=== PATIENT | male | born 1935 | race Hispanic/Latino ===

== ENCOUNTER 2017-06-02 01:51 | Emergency (ER) | payer MEDICARE ==
[~2017-06-02] VITALS: Ht 172.7 cm; Wt 79.4 kg
[~2017-06-02 01:51] MED LIST: AMLODIPINE BESY10 MG PO; CARVEDILOL25 MG PO; CLONIDINE HCL0.1 MG PO; DOXAZOSIN MESYLA4 MG PO; GABAPENTIN300 MG PO; LISINOPRIL40 MG PO; [UNRECOGNIZED DRUG - OTHER] PO
[2017-06-02] MEDS ORDERED: METOPROLOL TARTRATE INJ 1 MG/ML VIAL IV ONE (02:30)
[2017-06-02] MEDS ORDERED: ASPIRIN 325 MG TAB PO ONE (02:30)
[2017-06-02] MEDS ORDERED: FAMOTIDINE 20 MG/2 ML VIAL IV STA (03:54)
[2017-06-02] MEDS ORDERED: PANTOPRAZOLE 40 MG 10ML VIAL IV ONE (04:00)
[2017-06-02] MEDS ORDERED: CLOPIDOGREL75 MG PO (06:39)
[2017-06-02] MEDS ORDERED: ASPIR 8181 MG PO (06:41)
[2017-06-02] MEDS ORDERED: PANTOPRAZOLE SO40 MG PO (06:41)
[2017-06-02 07:43] VITALS: BP 174/89
== END 2017-06-02 07:37 | disposition home or self-care (01) ==
LOC: FSED 01:51
DX: R07.89 Other chest pain (principal); I20.9 Angina pectoris, unspecified; K21.9 Gastro-esophageal reflux disease without esophagitis; I10 Essential (primary) hypertension; I50.9 Heart failure, unspecified; E78.5 Hyperlipidemia, unspecified; L40.9 Psoriasis, unspecified
CPT/HCPCS: 93005; 99283

== ENCOUNTER → 2017-06-18 | Day surgery (SDC) | payer MEDICARE ==
[2017-06-17 10:21] LABS: BASOPHILS # (AUTO) 0.1 (0.0-0.1); BASOPHILS % 0.8 % (0.0-1.0); EOSINOPHILS # (AUTO) 0.2 (0.0-0.4); EOSINOPHILS % 3.4 % (0.0-6.0); HEMATOCRIT 37.7 % (38.2-49.6); HEMOGLOBIN 12.9 g/dL (14.0-18.0); LYMPHOCYTES # (AUTO) 1.1 (1.0-3.2); LYMPHOCYTES % 16.6 % (18.0-39.1); MEAN CORPUSCULAR HEMOGLOBIN 31.2 pg (28-32); MEAN CORPUSCULAR HGB CONC 34.2 g/dL (31-35); MEAN CORPUSCULAR VOLUME 91.3 fL (81-99); MONOCYTES # (AUTO) 0.7 (0.2-0.8); MONOCYTES % 10.3 % (4.4-11.3); NEUTROPHILS # (AUTO) 4.5 (2.1-6.9); NEUTROPHILS % 68.4 % (38.7-80.0); PLATELET COUNT 171 x10e3/uL (140-360); RED BLOOD COUNT 4.13 x10e6/uL (4.3-5.7); RED CELL DISTRIBUTION WIDTH 13.9 % (11.7-14.4)
[2017-06-17 10:32] LABS: INR 1.2; PROTHROMBIN TIME 14.3 seconds (11.9-14.5)
[2017-06-17 10:55] LABS: ANION GAP 11.9 mmol/L (8-16); BLOOD UREA NITROGEN 11 mg/dL (7-26); BUN/CREATININE RATIO 9 (6-25); CALCIUM 8.9 mg/dL (8.4-10.2); CARBON DIOXIDE 31 mmol/L (22-29); CHLORIDE 104 mmol/L (98-107); CREATININE, SERUM 1.16 mg/dL (0.72-1.25); EST GLOMERULAR FILTRATION RATE > 60 ML/MIN (60-); GLUCOSE 115 mg/dL (74-118); POTASSIUM 4.9 mmol/L (3.5-5.1); SODIUM 142 mmol/L (136-145)
[2017-06-17 11:50] LABS: ANISOCYTOSIS SLIGHT; BLAST CELLS % MANUAL 1; EOSINOPHILS % (MANUAL) 3 % (0-7); LYMPHOCYTES % (MANUAL) 12 % (19-48); MONOCYTES % (MANUAL) 9 % (3.4-9.0); NEUTROPHILS % (MANUAL) 72 % (40-74); PLATELET ESTIMATE ADEQUATE; PLATELET MORPHOLOGY COMMENT FEW LARGE; RBC MORPHOLOGY COMMENT NORMAL
--- NOTE | 2017-06-17 12:15 | Diagnostic Imaging Report ---
PROCEDURE: Frontal and lateral views of the chest. COMPARISON: Patients [facility], DX, CHEST SINGLE (NOT PORTABLE), 08/07/2016, 12:33. INDICATIONS: PRE OPERATIVE CHEST X-RAY FOR HEART CATH FINDINGS: Lines/tubes: None. Lungs: The lungs are well inflated and clear. There is no evidence of pneumonia or pulmonary edema. Pleura: There is no pleural effusion or pneumothorax. Heart and mediastinum: Stable mild enlargement of the cardiac silhouette. Pulmonary vasculature is normal. Atherosclerotic calcification of a tortuous aorta. Bones: No acute bony abnormality. IMPRESSION: 1. No acute cardiopulmonary abnormalities. Alexandro Fu M.D. Dictated by: Alexandro Fu M.D. on 06/17/2017 at 12:14 Electronically approved by: Alexandro Fu M.D. on 06/17/2017 at 12:14
[~2017-06-18] VITALS: Ht 172.7 cm; Wt 79.4 kg
[~2017-06-18] MED LIST changes: +ASPIR 8181 MG PO; +ASPIRIN EC81 MG PO; +ATORVASTATIN CA10 MG PO; +CLOPIDOGREL75 MG PO; +FENTANYL CITRATE/PF 100MCG/2 ML INJ IV PRN; +FENTANYL CITRATE/PF 100MCG/2 ML INJ PRN; +GABAPENTIN400 MG PO; +HEPARIN SOD/SOD CHLORIDE 2,000 ML PRN; +IOPAMIDOL 370 MG/ML 200 ML INFUS..BTL INJ PRN; +LIDOCAINE HCL 2% LOCAL 20 ML VIAL PRN; +MIDAZOLAM HCL 2 MG/2 ML VIAL IV PRN; +MIDAZOLAM HCL 2 MG/2 ML VIAL PRN; +PANTOPRAZOLE SO40 MG PO; +SODIUM CHLORIDE 0.9% 1000ML 1,000 ML PRN
--- OUTSIDE RECORDS SUMMARY | 2017-06-18 06:19 | XMS REPORT ---
[facility] Address Unknown Phone Unavailable Care Team Providers Care Special Events Manager Name Role Phone JOSE FLOYD Unavailable Unavailable Problems This patient has no known problems. Allergies, Adverse Reactions, Alerts This patient has no known allergies or adverse reactions. Medications This patient has no known medications. 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 COMPARISON: Patients [facility], , CHEST SINGLE (NOT PORTABLE), 08/07/2016, 12:33. INDICATIONS: PRE OPERATIVE CHEST X-RAY FOR HEART CATH FINDINGS: Lines/tubes: None. Lungs: The lungs are well inflated and clear. There is no evidence of pneumonia or pulmonary edema. Pleura: There is no pleural effusion or pneumothorax. Heart and mediastinum: Stable mild enlargement of the cardiac silhouette. Pulmonary vasculature is normal. Atherosclerotic calcification of a tortuous aorta. Bones: No acute bony abnormality. IMPRESSION: 1. No acute cardiopulmonary abnormalities. Benitez López M.D. Dictated by : Benitez López M.D. on 06/17/2017 at 12:14 Electronically approved by: Benitez López M.D. on 06/17/2017 at 12:14 Dictated By : BENITEZ LÓPEZ MD 1214 Transcribed By: JOSELIN on 06/17/17 1214 COPY TO: JOSE FLOYD MD
--- OUTSIDE RECORDS SUMMARY | 2017-06-18 06:19 | XMS REPORT | Continuity of Care Document ---
Author Author [facility] Organization [facility] Address [address] [place] [address] Phone Unavailable Care Team Providers Care Supervisor Graphite Name Role Phone KRISTA CLARK MD PCP Insurance Providers Guarantor Finesse Smith Address [address] [place] [address] Email NONE Payer [employer] Medicare Replacement Policy Number [id number] Subscriber's Name Finesse Smith Relationship 18 Self / Same As Patient Group Number [id number] Group Name RETIRED Effective Date 15 Advance Directives Directive Response Recorded Date/Time Does the patient have an advance directive? No 08/08/16 12:16am If yes, is advance directive on file with [facility]? No 08/08/16 12:16am If not on file with [facility] will patient provide a copy? No 08/08/16 12:16am Problems No problem information available. Medications Current Home Medications Medication Dose Units Route Directions Days Qty Instructions Start Date Amlodipine Besylate 10 Mg Tablet 10 Mg Oral Daily 30 Tab Aspirin (Aspir 81) 81 Mg Tablet. Oral Daily Carvedilol 25 Mg Tablet 25 Mg Oral Twice A Day Clonidine Hcl 0.1 Mg Tablet 1 Tab Oral Daily 60 Tab Clopidogrel Bisulfate (Clopidogrel) 75 Mg Tablet 75 Mg Oral Daily 30 Tab Doxazosin Mesylate 4 Mg Tablet 4 Mg Oral Daily Gabapentin 300 Mg Capsule 300 Mg Oral Twice A Day 60 Cap Lisinopril 40 Mg Tablet 40 Mg Oral Daily Ofezla 30 Mg Oral Twice A Day Pantoprazole Sodium (Protonix) 40 Mg Tablet.dr 40 Mg Oral Daily Social History Social History Problem Response Recorded Date/Time Onset Date Status Hx Psychiatric Problems No 08/08/2016 12:16am Not Applicable Not Applicable Smoking Status Start Date Stop Date Never Smoker Hospital Discharge Instructions No hospital discharge instruction information available. Plan of Care Discharge Date 06/02/17 7:37am Disposition HOME, SELF-CARE Condition at Discharge Stable Instructions/Education Provided Angina Chest Pain - Noncardiac Prescriptions See Medication Section Referrals KRISTA CLARK MD Address: [address] [place] [id number] Additional Instructions/Education Call PCP and Supervisor [employer] to schedule follow up today (in a couple hours). You may see whichever one first, whoever can get you into their office within the next 2-3 days, as discussed. Copies of your EKGs and labs were given to you. Follow up is very important! Return here with any return or worsening of symptoms (or closest ER). Functional Status No functional status information available. Allergies, Adverse Reactions, Alerts No known allergies. Immunizations No immunization information available. Vital Signs Acute Vital Signs Vital Response Date/Time Temperature (Fahrenheit) 97.8 degrees F (97.6 - 99.5) 06/02/2017 7:43am Pulse Pulse Rate (adult) 75 bpm (60 - 90) 06/02/2017 7:43am Respiratory Rate 16 bpm (12 - 24) 06/02/2017 7:43am Blood Pressure 174/89 mm Hg 06/02/2017 7:43am Height 5 ft 8 in 06/02/2017 2:00am Weight 175 lb 06/02/2017 2:00am Body Mass Index 26.6 kg/m^2 06/02/2017 2:00am Results Laboratory Results Test Name Result Units Flags Reference Collection Date/Time Result Date/ Time Comments White Blood Count 11.6 x10e3/uL H 4.5-10.6 08/08/2016 6:05am 08/08/2016 6:27am Red Blood Count 4.18 x10e6/uL L 4.3-5.7 08/08/2016 6:05am 08/08/2016 6: 27am Hemoglobin 12.3 g/dL 12.3-16.8 08/08/2016 6:05am 08/08/2016 6:27am SEE IV FLUIDS. 0626 on 08/08/16 by Jenelle Mccarty Hematocrit 37.0 % L 38.2-49.6 08/08/2016 6:05am 08/08/2016 6:27am Mean Corpuscular Volume 88.5 fL 81-99 08/08/2016 6:05am 08/08/2016 6: 27am Mean Corpuscular Hemoglobin 29.4 pg 28-32 08/08/2016 6:05am 08/08/2016 6:27am Mean Corpuscular Hemoglobin Concent 33.2 g/dL 31-35 08/08/2016 6:05am 08/08/2016 6:27am Red Cell Distribution Width 14.7 % H 11.7-14.4 08/08/2016 6:05am 2016 6:27am Platelet Count 184 x10e3/uL 140-360 08/08/2016 6:05am 08/08/2016 6: 27am SEE IV FLUIDS. 0626 on 08/08/16 by Jenelle Mccarty Neutrophils (%) (Auto) 76.9 % 38.7-80.0 08/08/2016 6:05am 08/08/2016 6: 27am Lymphocytes (%) (Auto) 10.5 % L 18.0-39.1 08/08/2016 6:05am 08/08/2016 6 :27am Monocytes (%) (Auto) 10.0 % 4.4-11.3 08/08/2016 6:05am 08/08/2016 6: 27am Eosinophils (%) (Auto) 2.0 % 0.0-6.0 08/08/2016 6:05am 08/08/2016 6: 27am Basophils (%) (Auto) 0.2 % 0.0-1.0 08/08/2016 6:05am 08/08/2016 6:27am IM GRANULOCYTES % 0.4 % 0.0-1.0 08/08/2016 6:05am 08/08/2016 6:27am Neutrophils # (Auto) 8.9 H 2.1-6.9 08/08/2016 6:05am 08/08/2016 6: 27am Lymphocytes # (Auto) 1.2 1.0-3.2 08/08/2016 6:05am 08/08/2016 6:27am Monocytes # (Auto) 1.2 H 0.2-0.8 08/08/2016 6:05am 08/08/2016 6:27am Eosinophils # (Auto) 0.2 0.0-0.4 08/08/2016 6:05am 08/08/2016 6:27am Basophils # (Auto) 0.0 0.0-0.1 08/08/2016 6:05am 08/08/2016 6:27am Absolute Immature Granulocyte (auto 0.05 x10e3/uL 0-0.1 08/08/2016 6: 05am 08/08/2016 6:27am Prothrombin Time 13.1 seconds 11.9-14.5 08/07/2016 12:20pm 08/07/2016 12:43pm Prothromb Time International Ratio 0.95 08/07/2016 12:20pm 2016 12:43pm Oral Anticoagulant Therapy INR Values: 1. Low Intensity Therapy 1.5 - 2.0 2. Moderate Intensity Therapy 2.0 - 3.0 3. High Intensity Therapy(1) 2.5 - 3.5 4. High Intensity Therapy(2) 3.0 - 4.0 5. Panic Value INR > 5.0 Activated Partial Thromboplast Time 33.0 seconds 23.8-35.5 08/07/2016 12 :20pm 08/07/2016 12:45pm Urine Color YELLOW YELLOW 08/07/2016 12:16pm 08/07/2016 2:59pm Urine Clarity SL CLOUDY H CLEAR 08/07/2016 12:16pm 08/07/2016 2:59pm Urine Specific [place] 1.025 1.010-1.025 08/07/2016 12:16pm 2016 2:59pm Urine pH 5 5 - 7 08/07/2016 12:16pm 08/07/2016 2:59pm Urine Leukocyte Esterase NEGATIVE NEGATIVE 08/07/2016 12:16pm 2016 2:59pm Urine Nitrite NEGATIVE NEGATIVE 08/07/2016 12:16pm 08/07/2016 2:59pm Urine Protein 3+ H NEGATIVE 08/07/2016 12:16pm 08/07/2016 2:59pm Urine Glucose (UA) NEGATIVE NEGATIVE 08/07/2016 12:16pm 08/07/2016 2: 59pm Urine Ketones NEGATIVE NEGATIVE 08/07/2016 12:16pm 08/07/2016 2:59pm Urine Urobilinogen 0.2 mg/dL 0.2 - 1 08/07/2016 12:16pm 08/07/2016 2: 59pm Urine Bilirubin NEGATIVE NEGATIVE 08/07/2016 12:16pm 08/07/2016 2: 59pm Urine Blood 1+ H NEGATIVE 08/07/2016 12:16pm 08/07/2016 2:59pm Urine WBC 0-5 /HPF 0-5 08/07/2016 12:16pm 08/07/2016 3:05pm Urine RBC 0-5 /HPF 0-5 08/07/2016 12:16pm 08/07/2016 3:05pm Urine Bacteria FEW /HPF NONE 08/07/2016 12:16pm 08/07/2016 3:05pm Urine Epithelial Cells RARE /LPF NONE 08/07/2016 12:16pm 08/07/2016 3: 05pm Urine Hyaline Casts 0-1 0-1 08/07/2016 12:16pm 08/07/2016 3:05pm Urine Mucus RARE RARE 08/07/2016 12:16pm 08/07/2016 3:05pm Sodium Level 139 mmol/L 136-145 08/08/2016 6:05am 08/08/2016 6:44am Potassium Level 4.6 mmol/L 3.5-5.1 08/08/2016 6:05am 08/08/2016 6:44am Chloride Level 103 mmol/L 98-107 08/08/2016 6:05am 08/08/2016 6:44am Carbon Dioxide Level 25 mmol/L 22-29 08/08/2016 6:05am 08/08/2016 6: 44am Anion Gap 15.6 mmol/L 8-16 08/08/2016 6:05am 08/08/2016 6:44am Blood Urea Nitrogen 24 mg/dL # 7-26 08/08/2016 6:05am 08/08/2016 6:44am Creatinine 1.59 mg/dL H 0.72-1.25 08/08/2016 6:05am 08/08/2016 6:44am BUN/Creatinine Ratio 15 6-25 08/08/2016 6:0508/08/2016 6:44am Estimat Glomerular Filtration Rate 42 ML/MIN L 60- 08/08/2016 6:05 6:44am Ranges were taken from the National Kidney Disease Education Program and the National Kidney Foundation literature. Reference ranges: 60 or greater: Normal 16-59 (for 3 consecutive months): Chronic kidney disease 15 or less: Kidney failure Glucose Level 107 mg/dL 74-118 08/08/2016 6:05am 08/08/2016 6:44am Calcium Level 8.5 mg/dL 8.4-10.2 08/08/2016 6:0508/08/2016 6:44am Total Bilirubin 1.0 mg/dL 0.2-1.2 08/07/2016 12:20pm 08/07/2016 1:51pm Samples from patients who have taken Naproxen have shown spurious elevation in Total Bilirubin levels. Aspartate Amino Transf (AST/SGOT) 22 IU/L 5-34 08/07/2016 12:20pm 08/07 1:51pm Alanine Aminotransferase (ALT/SGPT) 22 IU/L 0-55 08/07/2016 12:20pm 03/2017 1:51pm Total Protein 8.9 g/dL H 6.5-8.1 08/07/2016 12:20pm 08/07/2016 1:51pm Albumin 4.2 g/dL 3.5-5.0 08/07/2016 12:20pm 08/07/2016 1:51pm Globulin 4.7 g/dL H 2.3-3.5 08/07/2016 12:20pm 08/07/2016 1:51pm Albumin/Globulin Ratio 0.9 0.8-2.0 08/07/2016 12:20pm 08/07/2016 1: 51pm Alkaline Phosphatase 92 IU/L 40-150 08/07/2016 12:pm 08/07/2016 1: 51pm B-Type Natriuretic Peptide 118.0 pg/mL H 0-100 08/07/2016 12:20pm 2016 1:56pm Creatine Kinase 75 IU/L 30-200 08/07/2016 12:20pm 08/07/2016 1:51pm Creatine Kinase MB 2.30 ng/mL 0-4.3 08/07/2016 12:20pm 08/07/2016 2: 15pm Troponin I < 0.05 ng/mL 0.0-0.40 08/07/2016 12:20pm 08/07/2016 2:15pm Lipase 31 U/L 8-78 08/07/2016 12:20pm 08/07/2016 1:51pm Procedures Procedure Status Date Provider(s) X-ray of chest, single view Active 08/07/16 ROSY OSUNA NP Computed tomography of abdomen and pelvis with contrast Active 08/07/16 OLMAN HESS MD Encounters Encounter Location Arrival/Admit Date Discharge/Depart Date Attending Provider Departed Emergency Room [facility] 06/02/17 1:51am 7:37am MONAE CANO MD Departed Emergency Room [facility] 11/22/16 9:57pm 12:52am ANNE STODDARD MD Discharged Inpatient (obs) [facility] 08/07/16 8:32pm 1:06pm KRISTA CLARK MD
[2017-06-18 07:00] VITALS: BP 162/74
--- NOTE | 2017-06-18 12:34 | Operative Report ---
DATE OF PROCEDURE: June 18, 2017 INDICATIONS: Chest pain. Abnormal stress test. ANESTHESIA: 2% lidocaine for local anesthesia and fentanyl and Versed for conscious sedation. BLOOD LOSS: 2 mL. DESCRIPTION OF PROCEDURE: After informed consent, the patient was brought to the cardiac catheterization laboratory and placed on the table. Both groins were painted and draped in a sterile fashion. Lidocaine was injected in the right groin for local anesthesia. Right femoral artery was accessed by Seldinger technique, and a 5[place] sheath was placed in the right femoral artery. Left main artery was cannulated using a JL4 5-[place] catheter. Coronary angiogram was performed, and images were obtained in multiple views. The right coronary artery was cannulated using a 4-[place] 3DRC catheter. Coronary angiogram was performed, and images were obtained in multiple views. LV-gram was performed using a pigtail catheter. Patient tolerated the procedure without any complications. REPORT LEFT MAIN: Normal caliber. There are luminal irregularities. LEFT ANTERIOR DESCENDING: Normal caliber but tapers off distally with 99% mid lesion followed by diffuse, long, 90% lesion in the distal segment. The 2nd diagonal branch is a large branch, which branches off. It is of moderate caliber. There is a 70% lesion. In the branch there is another 70% lesion. There are some collaterals from the right side supplying the distal LAD. LEFT CIRCUMFLEX: Normal caliber and has about a 50% mid lesion. The 1st obtuse marginal branch has about 30% mid lesion. RIGHT CORONARY ARTERY: This is a large caliber, dominant vessel. There are diffuse luminal irregularities. LV-GRAM: Hypercontracted left ventricle with overall ejection fraction of 70% to 75%. HEMODYNAMICS: Aortic pressure is 165/81. LV pressure 165/1. LVEDP is 27. PLAN: Possible CABG. Job#: [id number]
== END | disposition home or self-care (01) ==
LOC: CATH LAB 06:17
DX: I25.10 Atherosclerotic heart disease of native coronary artery without angina pectoris (principal); R94.39 Abnormal result of other cardiovascular function study; R07.2 Precordial pain; I10 Essential (primary) hypertension; E78.5 Hyperlipidemia, unspecified; K21.9 Gastro-esophageal reflux disease without esophagitis; E55.9 Vitamin D deficiency, unspecified; Z01.810 Encounter for preprocedural cardiovascular examination; Z01.812 Encounter for preprocedural laboratory examination; Z01.818 Encounter for other preprocedural examination; Z79.02 Long term (current) use of antithrombotics/antiplatelets
CPT/HCPCS: 36415; 71046; 77002; 80048; 85025; 85610; 93005; 93458; J2001; J2250; J7030; Q9967; 36140; 93452

== ENCOUNTER 2017-07-24 07:19 | Observation (INO) | payer MEDICARE ==
[~2017-07-24] VITALS: Ht 172.7 cm; Wt 78.0 kg
[~2017-07-24 07:19] MED LIST changes: -FENTANYL CITRATE/PF 100MCG/2 ML INJ IV PRN; -FENTANYL CITRATE/PF 100MCG/2 ML INJ PRN; -HEPARIN SOD/SOD CHLORIDE 2,000 ML PRN; -IOPAMIDOL 370 MG/ML 200 ML INFUS..BTL INJ PRN; -LIDOCAINE HCL 2% LOCAL 20 ML VIAL PRN; -MIDAZOLAM HCL 2 MG/2 ML VIAL IV PRN; -MIDAZOLAM HCL 2 MG/2 ML VIAL PRN; -SODIUM CHLORIDE 0.9% 1000ML 1,000 ML PRN
[2017-07-24] MEDS ORDERED: ASPIRIN 81 MG CHEW TAB PO ONE (08:00)
[2017-07-24] MEDS ORDERED: SODIUM CHLORIDE 0.9% 1000ML 1,000 ML IV SCH (10:00)
--- OUTSIDE RECORDS SUMMARY | 2017-07-24 15:35 | XMS REPORT | Continuity of Care Document ---
Author Author [facility] Organization [facility] Address [address] [place] [address] Phone Unavailable Care Team Providers Care Real Estate Operations Manager Name Role Phone KRISTA CLARK MD PCP Insurance Providers Guarantor Finesse Smith Address [address] [place] [address] Email NONE Payer Aet[employer] Medicare Replacement Policy Number [id number] Subscriber's Name Finesse Smith Relationship 18 Self / Same As Patient Group Number [id number] Group Name RETIRED Effective Date 15 Advance Directives Directive Response Recorded Date/Time Does the patient have an advance directive? No 08/08/16 12:16am If yes, is advance directive on file with [facility]? No 08/08/16 12:16am If not on file with [facility] will patient provide a copy? No 08/08/16 12:16am Do you have a Directive to Physician? No 07/24/17 8:13am Do you have a Medical Power of Blood Bank Supervisor? No 07/24/17 8:13am Do you have an out of hospital Do Not Resuscitate Order? No 07/24/17 8:13am Do you have any special needs we should be aware of? No 07/24/17 8:13am Do you have a support person here with you today? No 07/24/17 8:13am Did patient receive Notice of Privacy Practices? Yes 07/24/17 8:13am Did patient receive patient rights and responsibilities? Yes 07/24/17 8:13am Problems Medical Problem Onset Date Status 3-vessel coronary artery disease Unknown Chest pain Unknown First degree AV block Unknown Hypertension Unknown Q waves suggestive of previous myocardial infarction Unknown Medications Current Home Medications Medication Dose Units Route Directions Days Qty Instructions Start Date Amlodipine Besylate 10 Mg Tablet 10 Mg Oral Bedtime 30 Tab Aspirin (Aspirin Ec) 81 Mg Tablet.dr 81 Mg Oral Daily 30 Tab Atorvastatin Calcium 10 Mg Tablet 10 Mg Oral Today At 9:00PM 30 Tab Carvedilol 25 Mg Tablet 25 Mg Oral Twice A Day Clonidine Hcl 0.1 Mg Tablet 1 Tab Oral Daily 60 Tab Clopidogrel Bisulfate (Clopidogrel) 75 Mg Tablet 75 Mg Oral Daily 30 Tab Doxazosin Mesylate 4 Mg Tablet 4 Mg Oral Daily Gabapentin 400 Mg Capsule 400 Mg Oral Twice A Day 30 Cap Lisinopril 40 Mg Tablet 40 Mg Oral Daily Pantoprazole Sodium (Protonix) 40 Mg Tablet.dr 40 Mg Oral Twice A Day Past Home Medications Medication Directions Ordered Status Aspirin (Aspir 81) 81 Mg Tablet.dr, Oral Daily Discontinued Gabapentin 300 Mg Capsule, 300 Mg Oral Twice A Day Discontinued Ofezla , 30 Mg Oral Twice A Day Discontinued Social History Social History Problem Response Recorded Date/Time Onset Date Status Hx Psychiatric Problems No 08/08/2016 12:16am Not Applicable Not Applicable Smoking Status Start Date Stop Date Never Smoker Hospital Discharge Instructions No hospital discharge instruction information available. Plan of Care Discharge Date 07/24/17 3:16pm Disposition ADMITTED Condition at Discharge Improved Forms Provided Work/School Excuse Prescriptions See Medication Section Functional Status No functional status information available. Allergies, Adverse Reactions, Alerts Allergen Type Severity Reaction Status Last Updated No Known Drug Allergies Allergy Unknown Active 07/24/17 Immunizations No immunization information available. Vital Signs Acute Vital Signs Vital Response Date/Time Temperature (Fahrenheit) 97.5 degrees F (97.6 - 99.5) 06/18/2017 7:00am Pulse Pulse Rate (adult) 70 bpm (60 - 90) 06/18/2017 7:00am Respiratory Rate 16 bpm (12 - 24) 06/18/2017 7:00am Blood Pressure 174/89 mm Hg 06/02/2017 7:43am Height 5 ft 8 in 07/24/2017 7:50am Weight 175 lb 07/24/2017 7:50am Body Mass Index 26.6 kg/m^2 07/24/2017 7:50am Results Laboratory Results Test Name Result Units Flags Reference Collection Date/Time Result Date/ Time Comments White Blood Count 6.52 x10e3/uL 4.8-10.8 06/17/2017 10:15am 06/17/2017 10:28am Red Blood Count 4.13 x10e6/uL L 4.3-5.7 06/17/2017 10:15am 06/17/2017 10 :28am Hemoglobin 12.9 g/dL L 14.0-18.0 06/17/2017 10:15am 06/17/2017 10:28am Hematocrit 37.7 % L 38.2-49.6 06/17/2017 10:15am 06/17/2017 10:28am Mean Corpuscular Volume 91.3 fL 81-99 06/17/2017 10:15am 06/17/2017 10: 28am Mean Corpuscular Hemoglobin 31.2 pg 28-32 06/17/2017 10:15am 2017 10:28am Mean Corpuscular Hemoglobin Concent 34.2 g/dL 31-35 06/17/2017 10:15am 06/17/2017 10:28am Red Cell Distribution Width 13.9 % 11.7-14.4 06/17/2017 10:15am 2017 10:28am Platelet Count 171 x10e3/uL 140-360 06/17/2017 10:15am 06/17/2017 10: 28am Neutrophils (%) (Auto) 68.4 % 38.7-80.0 06/17/2017 10:15am 06/17/2017 10:28am Lymphocytes (%) (Auto) 16.6 % L 18.0-39.1 06/17/2017 10:15am 06/17/2017 10:28am Monocytes (%) (Auto) 10.3 % 4.4-11.3 06/17/2017 10:15am 06/17/2017 10: 28am Eosinophils (%) (Auto) 3.4 % 0.0-6.0 06/17/2017 10:15am 06/17/2017 10: 28am Basophils (%) (Auto) 0.8 % 0.0-1.0 06/17/2017 10:15am 06/17/2017 10: 28am IM GRANULOCYTES % 0.5 % 0.0-1.0 06/17/2017 10:15am 06/17/2017 10:28am Neutrophils # (Auto) 4.5 2.1-6.9 06/17/2017 10:15am 06/17/2017 10: 28am Lymphocytes # (Auto) 1.1 1.0-3.2 06/17/2017 10:15am 06/17/2017 10: 28am Monocytes # (Auto) 0.7 0.2-0.8 06/17/2017 10:15am 06/17/2017 10:28am Eosinophils # (Auto) 0.2 0.0-0.4 06/17/2017 10:15am 06/17/2017 10: 28am Basophils # (Auto) 0.1 0.0-0.1 06/17/2017 10:15am 06/17/2017 10:28am Absolute Immature Granulocyte (auto 0.03 x10e3/uL 0-0.1 06/17/2017 10: 15am 06/17/2017 10:28am Differential Total Cells Counted 100 06/17/2017 10:1506/17/2017 11:50am Neutrophils % (Manual) 72 % 40-74 06/17/2017 10:15am 06/17/2017 11: 50am Lymphocytes % (Manual) 12 % L 19-48 06/17/2017 10:15am 06/17/2017 11: 50am Monocytes % (Manual) 9 % 3.4-9.0 06/17/2017 10:15am 06/17/2017 11:50am Eosinophils % (Manual) 3 % 0-7 06/17/2017 10:15am 06/17/2017 11:50am Reactive Lymphocytes 3 06/17/2017 10:15am 06/17/2017 11:50am Blast Cells % 1 06/17/2017 10:15am 06/17/2017 11:50am Platelet Estimate ADEQUATE 06/17/2017 10:15am 06/17/2017 11:50am Platelet Morphology Comment FEW LARGE 06/17/2017 10:15am 2017 11:50am Anisocytosis SLIGHT 06/17/2017 10:1506/17/2017 11:50am Red Cell Morphology Comment NORMAL 06/17/2017 10:06/17/2017 11 :50am Prothrombin Time 14.3 seconds 11.9-14.5 06/17/2017 10:1506/17/2017 10:33am Prothromb Time International Ratio 1.20 06/17/2017 10:2017 10:33am Oral Anticoagulant Therapy INR Values: 1. Low Intensity Therapy 1.5 - 2.0 2. Moderate Intensity Therapy 2.0 - 3.0 3. High Intensity Therapy(1) 2.5 - 3.5 4. High Intensity Therapy(2) 3.0 - 4.0 5. Panic Value INR > 5.0 Sodium Level 142 mmol/L 136-145 06/17/2017 10:1506/17/2017 11:11am Potassium Level 4.9 mmol/L 3.5-5.1 06/17/2017 10:06/17/2017 11: 11am Chloride Level 104 mmol/L 98-107 06/17/2017 10:1506/17/2017 11:11am Carbon Dioxide Level 31 mmol/L H 22-29 06/17/2017 10:1506/17/2017 11: 11am Anion Gap 11.9 mmol/L 8-16 06/17/2017 10:1506/17/2017 11:11am Blood Urea Nitrogen 11 mg/dL 7-26 06/17/2017 10:1506/17/2017 11: 11am Creatinine 1.16 mg/dL 0.72-1.25 06/17/2017 10:1506/17/2017 11:11am BUN/Creatinine Ratio 9 6-25 06/17/2017 10:1506/17/2017 11:11am Estimat Glomerular Filtration Rate > 60 ML/MIN 60- 06/17/2017 10:1506/17/2017 11:11am Ranges were taken from the National Kidney Disease Education Program and the National Kidney Foundation literature. Reference ranges: 60 or greater: Normal 16-59 (for 3 consecutive months): Chronic kidney disease 15 or less: Kidney failure Glucose Level 115 mg/dL 74-118 06/17/2017 10:1506/17/2017 11:11am Calcium Level 8.9 mg/dL 8.4-10.2 06/17/2017 10:15am 06/17/2017 11:11am Procedures Procedure Status Date Provider(s) L HRT ARTERY/VENTRICLE ANGIO Completed 06/18/17 JOSE FLOYD MD X-ray of chest, two views Active 06/17/17 JOSE FLOYD MD Encounters Encounter Location Arrival/Admit Date Discharge/Depart Date Attending Provider Departed Emergency Room [facility] 07/24/17 7:19am 3:16pm ELENA LARA MD Registered [facility] 06/18/17 6:17am JOSE FLOYD MD Departed Emergency Room [facility] 06/02/17 1:51am 7:37am MONAE CANO MD Departed Emergency Room [facility] 11/22/16 9:57pm 12:52am ANNE STODDARD MD
[2017-07-24 15:45] VITALS: BP 169/74
[2017-07-24 16:37] VITALS: BP 169/74
[2017-07-24] MEDS ORDERED: NON-FORMULARY MEDICATION (Carvedilol 25 MG) PO SCH (17:00)
[2017-07-24] MEDS: GABAPENTIN 400 MG CAP PO SCH (17:35)
[2017-07-24] MEDS: PANTOPRAZOLE SOD 40 MG TABEC PO SCH (17:35)
[2017-07-24] MEDS: CARVEDILOL 12.5 MG TAB PO SCH (17:35)
--- NOTE | 2017-07-24 17:57 | Consultation ---
DATE OF CONSULTATION: July 24, 2017 CARDIOLOGY CONSULTATION CHIEF COMPLAINT: The patient is an 81 year old with chest pain. HISTORY OF PRESENT ILLNESS: The patient is an 81 year old who went to the emergency room with chest tightness and elevated blood pressure. The patient had cardiac cath done about 3 months ago, which demonstrated a 99% stenosis in the midleft anterior descending artery. Coronary artery bypass grafting with left internal mammary artery to the left anterior descending artery was recommended, but the patient does not want bypass surgery, and is requesting stent placement. PAST MEDICAL HISTORY: Significant for: 1. Hypertension. 2. Hypercholesterolemia. 3. Gastroesophageal reflux. 4. Previous cardiac catheterization demonstrating a long 90% to 95% stenosis in the midleft anterior descending artery. The patient had normal left ventricular size and function on the catheterization with an ejection fraction of 60%. CURRENT MEDICATIONS: At home include amlodipine, aspirin, atorvastatin, carvedilol, Plavix, Hytrin, gabapentin, and lisinopril. SOCIAL HISTORY: The patient does not drink and does not smoke. FAMILY HISTORY: No known family history of coronary artery disease. PHYSICAL EXAMINATION GENERAL: The patient is a well-developed, well-nourished male in no obvious distress. VITAL SIGNS: Include a temperature of 96.8, blood pressure 169/74. HEENT: The patient's cranium was normocephalic and atraumatic. Extraocular muscles were intact. Sclerae was anicteric. Pupils equal, round and reactive to light. There is no pallor or cyanosis of the oral mucosa. There is no erythema or edema of the throat. NECK: Supple. No jugular venous distention. No carotid bruits. CHEST: Demonstrated rhonchi bilaterally. CARDIAC: Demonstrated normal S1 and S2 with a short 2/6 systolic murmur. ABDOMEN: Demonstrated good bowel sounds. No tenderness. No masses. EXTREMITIES: No clubbing. No cyanosis. No edema. NEUROLOGIC: The patient was alert and oriented times 3. Cranial nerves II-XII are intact. Motor strength was +5/+5 in all limbs. The patient's EKG demonstrated normal sinus rhythm with nonspecific S/T and T-wave changes. IMPRESSION: The patient is an 81 year old with known coronary artery disease and recurrent angina. Since the patient has declined coronary artery bypass grafting surgery, I am willing to proceed with high-risk stent placement. I have explained to the patient that the left internal mammary artery graft to the left anterior descending artery would be preferable, but I think a stent is a viable 2nd alternative. The risks and benefits of the procedure have been discussed with the patient, and he is in agreement to proceed. Job#: [id number] RI cc:BREANA REDMAN MD
--- NOTE | 2017-07-24 18:02 | History and Physical ---
An 81-year-old male with a past medical history positive for coronary artery disease, hypertension came here with chest pain. Patient was seen and admitted to the hospital for cardiac workup. He is chest pain free now. REVIEW OF SYSTEMS CARDIOVASCULAR: No chest pain or palpitation. RESPIRATORY: No shortness of breath. No cough. GASTROINTESTINAL: No nausea, vomiting or diarrhea. GENITOURINARY: No frequency. No dysuria. ALLERGIES: HE CLAIMS THAT HE IS NOT ALLERGIC TO ANY MEDICATION. SOCIAL HISTORY: He does not smoke. He does not drink. PAST MEDICAL HISTORY: Positive for coronary artery disease and hypertension. PHYSICAL EXAMINATION HEART: Shows regular rhythm. Normal S1 and S2 sounds. LUNGS: Clear bilaterally. ABDOMEN: Soft. EXTREMITIES: Show no evidence of cyanosis or trauma. EKG showed sinus rhythm with first-degree AV block. No evidence of any ST-segment elevation or depression. FINAL IMPRESSION 1. Coronary artery disease, unstable angina. 2. Hypertension. 3. Anemia. 4. Thrombocytopenia. PLAN OF TREATMENT: We are going to continue with the current medication regimen that he was taking before. He is to continue amlodipine 10 mg daily, clonidine 0.1 mg daily, carvedilol 25 mg tablets once a day. Continue with Lipitor [address] Bryon Jack has been consulted from the cardiology point of view. He is going to go for a stress test tomorrow and possible cardiac cath with stent. Job#: [id number] JAZMIN
[2017-07-24 19:31] LABS: CREATINE KINASE MB 1.6 ng/mL (0-5.0)
[2017-07-24 20:15] VITALS: BP 182/90
[2017-07-24] MEDS: ATORVASTATIN 10 MG TAB PO SCH (20:54)
[2017-07-24] MEDS: AMLODIPINE BESYLATE 10 MG TAB PO SCH (20:55)
[2017-07-24 22:00] VITALS: BP 148/83
[2017-07-25] VITALS (8 sets, daily range): BP systolic 123–166; BP diastolic 62–79
[2017-07-25] MEDS: ASPIRIN 81 MG ENTERIC COATED PO SCH (08:11)
[2017-07-25] MEDS: PANTOPRAZOLE SOD 40 MG TABEC PO SCH ×2 (08:11→17:40)
[2017-07-25] MEDS: GABAPENTIN 400 MG CAP PO SCH ×2 (08:11→17:40)
[2017-07-25] MEDS: DOXAZOSIN MESYLATE 2 MG TAB PO SCH (08:11)
[2017-07-25] MEDS: CARVEDILOL 12.5 MG TAB PO SCH ×2 (08:11→17:40)
[2017-07-25] MEDS: LISINOPRIL 20 MG TAB PO SCH (08:11)
[2017-07-25] MEDS: CLONIDINE HCL 0.1 MG TAB PO SCH (08:11)
[2017-07-25] MEDS: CLOPIDOGREL BISULFATE 75 MG TAB PO SCH (08:13)
[2017-07-25 08:57] LABS: BASOPHILS # (AUTO) 0.1 (0.0-0.1); BASOPHILS % 0.6 % (0.0-1.0); EOSINOPHILS # (AUTO) 0.2 (0.0-0.4); EOSINOPHILS % 2.6 % (0.0-6.0); HEMATOCRIT 38.3 % (38.2-49.6); HEMOGLOBIN 12.8 g/dL (14.0-18.0); LYMPHOCYTES # (AUTO) 0.9 (1.0-3.2); LYMPHOCYTES % 11.8 % (18.0-39.1); MEAN CORPUSCULAR HEMOGLOBIN 30.5 pg (28-32); MEAN CORPUSCULAR HGB CONC 33.4 g/dL (31-35); MEAN CORPUSCULAR VOLUME 91.2 fL (81-99); MONOCYTES # (AUTO) 0.8 (0.2-0.8); MONOCYTES % 10.3 % (4.4-11.3); NEUTROPHILS # (AUTO) 5.8 (2.1-6.9); NEUTROPHILS % 74.3 % (38.7-80.0); PLATELET COUNT 170 x10e3/uL (140-360)
[2017-07-25] MEDS ORDERED: NON-FORMULARY MEDICATION (Doxazosin Mesylate 4 MG) PO SCH (09:00)
[2017-07-25] MEDS ORDERED: NON-FORMULARY MEDICATION (Lisinopril 40 MG) PO SCH (09:00)
[2017-07-25 09:10] LABS: INR 1.16; PROTHROMBIN TIME 13.9 seconds (11.9-14.5)
[2017-07-25 09:13] LABS: ANION GAP 12.5 mmol/L (8-16); CALCIUM 9.4 mg/dL (8.4-10.2); CREATININE, SERUM 1.2 mg/dL (0.72-1.25); POTASSIUM 3.5 mmol/L (3.5-5.1)
[2017-07-25] MEDS ORDERED: HYDRALAZINE HCL 20 MG/ML VIAL IV PRN (09:30)
--- NOTE | 2017-07-25 14:51 | Progress Note ---
DATE: INTERNAL MEDICINE PROGRESS NOTE SUBJECTIVE: Patient is doing well today. He is waiting to have a cardiac cath done with a possible stent placement on LAD by Dr. Jack today. PHYSICAL EXAM: HEART: Shows regular rhythm. Normal S1 and S2 sounds. LUNGS: Clear bilaterally. ABDOMEN: Soft. EXTREMITIES: Show no edema. VITAL SIGNS: The blood pressure is 123/62, temperature 97.9, heart rate 65 per minute, respiratory rate is 20 per minute, oxygen saturation 96%. On the BMP: Sodium 143, potassium 3.5, chloride 106, CO2 28, BUN 17, creatinine 1.20. Glucose 122. CBC showed white blood count 7.80, hemoglobin 12.8, hematocrit is 38.3, platelet count 170,000. PT 13.9, INR 1.16, and troponins are negative. EKG was done at the emergency room and showed sinus rhythm with 1st degree AV block. FINAL IMPRESSION: 1. Coronary artery disease, unstable angina. 2. Hypertension. 3. Thrombocytopenia. PLAN OF TREATMENT: The patient is going to get a cardiac cath done by Dr. Bryon Jack today, possible stenting on the left anterior descending artery and will continue with amlodipine 10 mg daily, aspirin 81 mg daily, Lipitor 10 mg daily, clonidine 0.1 mg daily, carvedilol 25 mg twice a day, Plavix 75 mg daily, doxazosin 4 mg daily, gabapentin 400 mg twice a day, lisinopril 40 mg daily, Protonix 40 mg twice a day and hydralazine 10 mg IV q.4 h. as needed. We are going to also give 40 mEq of potassium because the potassium is borderline low at 3.5. Tentative discharge for today. Job#: [id number] EV
[2017-07-25] MEDS ORDERED: POTASSIUM CHLORIDE 20MEQ/100ML 100 ML IV SCH ×2 (15:00)
[2017-07-25] MEDS ORDERED: HEPARIN SOD/SOD CHLORIDE 2,000 ML ONE (15:54)
[2017-07-25] MEDS ORDERED: LIDOCAINE HCL 2% LOCAL 20 ML VIAL ONE (15:54)
[2017-07-25] MEDS ORDERED: MIDAZOLAM HCL 2 MG/2 ML VIAL ONE (15:54)
[2017-07-25] MEDS ORDERED: IOPAMIDOL 370 MG/ML 200 ML INFUS..BTL INJ ONE ×2 (15:55→16:56)
[2017-07-25] MEDS ORDERED: SODIUM CHLORIDE 0.9% 1000ML 1,000 ML ONE (15:56)
[2017-07-25] MEDS ORDERED: FENTANYL CITRATE/PF 100MCG/2 ML INJ ONE (16:20)
[2017-07-25] MEDS ORDERED: BIVALIRUDIN 250 MG/VIAL IV ONE (16:29)
[2017-07-25] MEDS ORDERED: SODIUM CHLORIDE 0.9% 50ML 50 ML ONE (16:30)
[2017-07-25] MEDS: ATORVASTATIN 10 MG TAB PO SCH (21:50)
[2017-07-25] MEDS: AMLODIPINE BESYLATE 10 MG TAB PO SCH (21:50)
[2017-07-25] MEDS: SODIUM CHLORIDE 0.9% 1000ML 1,000 ML IV SCH (22:57)
[2017-07-26] VITALS: BP 160/70
[2017-07-26 04:00] VITALS: BP 164/76
[2017-07-26] MEDS: SODIUM CHLORIDE 0.9% 1000ML 1,000 ML IV SCH (06:45)
[2017-07-26 07:53] VITALS: BP 117/58
[2017-07-26 07:54] LABS: ANION GAP 11.6 mmol/L (8-16); BLOOD UREA NITROGEN 18 mg/dL (7-26); BUN/CREATININE RATIO 16 (6-25); CALCIUM 8.6 mg/dL (8.4-10.2); CARBON DIOXIDE 28 mmol/L (22-29); CHLORIDE 105 mmol/L (98-107); CREATININE, SERUM 1.13 mg/dL (0.72-1.25); EST GLOMERULAR FILTRATION RATE > 60 ML/MIN (60-); GLUCOSE 101 mg/dL (74-118); POTASSIUM 3.6 mmol/L (3.5-5.1); SODIUM 141 mmol/L (136-145)
[2017-07-26] MEDS: CLONIDINE HCL 0.1 MG TAB PO SCH (09:00)
[2017-07-26] MEDS: CARVEDILOL 12.5 MG TAB PO SCH (09:15)
[2017-07-26] MEDS: CLOPIDOGREL BISULFATE 75 MG TAB PO SCH (09:15)
[2017-07-26] MEDS: GABAPENTIN 400 MG CAP PO SCH (09:15)
[2017-07-26] MEDS: LISINOPRIL 20 MG TAB PO SCH (09:16)
[2017-07-26] MEDS: PANTOPRAZOLE SOD 40 MG TABEC PO SCH (09:16)
[2017-07-26] MEDS: ASPIRIN 81 MG ENTERIC COATED PO SCH (09:16)
[2017-07-26] MEDS: DOXAZOSIN MESYLATE 2 MG TAB PO SCH (09:17)
[2017-07-26 10:34] VITALS: BP 117/62
[2017-07-26 13:25] VITALS: BP 141/66
[2017-07-26] MEDS ORDERED: INSULIN REGULAR, HUMAN 100 UNIT/1 ML 3ML VIAL SQ SCH (16:30)
--- NOTE | 2017-07-26 20:54 | Discharge Summary ---
An 81-year-old male with past medical history positive for coronary artery disease, history of hypertension, history of postherpetic neuralgia, history of gastroesophageal reflux disease, history of hyperlipidemia and benign prostatic hypertrophy. Patient came to the hospital originally complaining of chest pain. He was seen by Dr. Bryon Jack who did a cardiac cath. He already had a prior left anterior descending artery stenosis. He tried to pass a wire through that and was unable to do it. He recommended coronary artery bypass grafting. The patient already talked with Dr. Luong, cardiovascular surgeon, who is going to schedule coronary artery bypass. He wanted to go home today. He has no chest pain. PHYSICAL EXAM: VITAL SIGNS: The blood pressure 141/66, temperature 97.2, heart rate 69 per minute, respiratory rate is 18 per minute, oxygen saturation 96%. HEART: Regular rhythm. No murmur. No extra sounds. LUNGS: Clear bilaterally. ABDOMEN: Soft. EXTREMITIES: Show no evidence of cyanosis, edema or trauma. LABORATORY DATA: BMP: Sodium 141, potassium 3.6, chloride 105, CO2 28, BUN 18, creatinine 1.13, glucose 101. On the CBC white blood count 7.80, hemoglobin 12.8, hematocrit 38.3, platelets 170,000. PT 13.9, INR 1.16. FINAL IMPRESSION: 1. Coronary artery disease with a very tight left anterior descending artery stenosis which was unable to get a stent with a cardiac catheterization. 2. Hypertension. 3. Postherpetic neuralgia 4. Gastroesophageal reflux disease. 5. Hypercholesterolemia. 6. . The patient is going to be discharged home on amlodipine 10 mg daily. Aspirin 81 mg daily. Lyrica 50 mg 3 times a day. We are going to discontinue gabapentin. Continue lisinopril 40 mg daily. Lipitor 10 mg daily. Protonix 40 mg twice a day. Clonidine 0.1 mg daily. Carvedilol 12.5 mg twice a day. Plavix 75 mg daily and doxazosin 4 mg daily. BREANA REDMAN MD Job#: [id number] GH
--- NOTE | 2017-07-27 10:34 | Operative Report ---
DATE OF PROCEDURE: PROCEDURE: Left heart catheterization. INDICATION: Angina and coronary artery disease. ANESTHESIA: Versed, fentanyl and lidocaine. TECHNIQUE: The patient's right groin was draped and prepped in the usual fashion. The area was anesthetized with lidocaine. Standard Seldinger technique was used to place a 6-Swedish sheath into the right femoral artery without difficulty. A JL-4 catheter was used to selectively engage the left coronary artery. A 3DRC catheter was used to select and engage the right coronary artery. A pigtail catheter was used to perform a left ventriculogram. The patient was bolused with Angiomax and started on an Angiomax drip. An XB-3.5 guiding catheter was used to cannulate the left coronary artery. A Whisper wire was used in combination with a 2.5-mm x 12-mm balloon in an attempt to cross the short area of 100% occlusion at the junction of the proximal to middle thirds of the LAD. The short area of 100% total occlusion could not be crossed with the wire, and an Angio-Seal device was used for closure. Results are as follows: 1. A normal left main trunk. 2. There was a large left anterior descending artery which gave rise to a medium-sized diagonal branch. There was a short area of 100% occlusion at the junction of the proximal and middle thirds of the left anterior descending artery. The distal left anterior descending artery filled by antegrade collaterals. 3. There was a small AV circumflex artery which gave rise to a medium-sized obtuse marginal branch. There was minimal disease in the circumflex system. 4. There was a large dominant right coronary artery with minimal disease. 5. There was normal left ventricular size and function with an ejection fraction of 60%. CONCLUSION: The patient has a 100% occlusion at the junction of the proximal and middle thirds of the left anterior descending artery. The stenosis was not amenable to percutaneous coronary intervention. It is my recommendation that the patient be referred for a left internal mammary artery graft to the left anterior descending artery. Job#: [id number] EV cc:BREANA REDMAN MD
== END 2017-07-26 14:52 | disposition home or self-care (01) ==
LOC: FSED 07:19 → MED/SURG3 15:33 → MED/SURG 21:57
PROVIDERS: ADMIT Internal Medicine; ATTEND Internal Medicine
DX: I25.110 Atherosclerotic heart disease of native coronary artery with unstable angina pectoris (principal); R07.9 Chest pain, unspecified; R94.31 Abnormal electrocardiogram [ECG] [EKG]; I10 Essential (primary) hypertension; R73.9 Hyperglycemia, unspecified; I44.0 Atrioventricular block, first degree; E78.5 Hyperlipidemia, unspecified; K21.9 Gastro-esophageal reflux disease without esophagitis; D69.6 Thrombocytopenia, unspecified; D64.9 Anemia, unspecified; B02.29 Other postherpetic nervous system involvement; I25.82 Chronic total occlusion of coronary artery
CPT/HCPCS: 36415 ×3; 71046; 77002; 80048 ×3; 80053; 81003; 82550; 82553; 82948 ×2; 83735; 84484; 85025 ×2; 85379; 85610; 93005; 93458; 99284; C1769; C1887; G0378 ×3; J0583; J2001; J2250; J3480; J7030 ×3; Q9967; 36140; 93452

== ENCOUNTER → 2017-09-30 | Outpatient (CLI) | payer MEDICARE ==
--- NOTE | 2017-09-30 16:56 | Diagnostic Imaging Report ---
PROCEDURE:US CHEST (INCL MEDIASTINUM) COMPARISON:Patients [facility], DX, CHEST 2 VIEWS, 06/17/2017, 11:56. INDICATIONS:Left Pleural Effusion FINDINGS: Examination shows small right simple appearing pleural effusion with associated atelectasis. Small to moderate left pleural effusion, which may contain a small amount of debris. Associated atelectasis. CONCLUSION: 1. Small right and iwruf-[id number]-yttauwme left pleural effusions. The left effusion may contain a small amount of debris. Alexandro Fu M.D. Dictated by: Alexandro Fu M.D. on 09/30/2017 at 16:59 Electronically approved by: Alexandro Fu M.D. on 09/30/2017 at 16:59
== END ==
LOC: US 15:50
PROVIDERS: ATTEND Internal Medicine
DX: J90 Pleural effusion, not elsewhere classified (principal)
CPT/HCPCS: 76604

== ENCOUNTER 2018-01-15 07:12 | Inpatient (IN) | payer MEDICARE ==
[~2018-01-15] VITALS: Ht 167.6 cm; Wt 73.0 kg
[2018-01-15] VITALS (30 sets, daily range): BP systolic 126–187; BP diastolic 72–112
[2018-01-15 07:32] LABS: BASOPHILS # (AUTO) 0.1 (0.0-0.1); BASOPHILS % 0.5 % (0.0-1.0); EOSINOPHILS # (AUTO) 0.6 (0.0-0.4); EOSINOPHILS % 5.8 % (0.0-6.0); HEMATOCRIT 35.1 % (38.2-49.6); HEMOGLOBIN 11.2 g/dL (14.0-18.0); LYMPHOCYTES # (AUTO) 1.4 (1.0-3.2); LYMPHOCYTES % 13.2 % (18.0-39.1); MEAN CORPUSCULAR HEMOGLOBIN 27.7 pg (28-32); MEAN CORPUSCULAR HGB CONC 31.9 g/dL (31-35); MEAN CORPUSCULAR VOLUME 86.9 fL (81-99); MONOCYTES # (AUTO) 0.8 (0.2-0.8); MONOCYTES % 7.2 % (4.4-11.3); PLATELET COUNT 90 x10e3/uL (140-360); RED BLOOD COUNT 4.04 x10e6/uL (4.3-5.7); RED CELL DISTRIBUTION WIDTH 17.5 % (11.7-14.4)
[2018-01-15] MEDS ORDERED: DOCUSATE SODIU100 MG PO (07:33)
[2018-01-15] MEDS ORDERED: CHLORPHENIRAMINE4 MG PO (07:33)
[2018-01-15] MEDS ORDERED: FOLIC ACID1 MG PO (07:33)
[2018-01-15] MEDS ORDERED: FERROUS SULFAT325 MG PO (07:33)
[2018-01-15] MEDS ORDERED: LYRICA50 MG PO (07:33)
[2018-01-15] MEDS ORDERED: RAMIPRIL2.5 MG PO (07:33)
[2018-01-15] MEDS ORDERED: METOPROLOL TART50 MG PO (07:33)
[2018-01-15] MEDS ORDERED: CLOPIDOGREL75 MG PO (07:33)
[2018-01-15] MEDS ORDERED: SODIUM CHLORIDE 0.9% 1000ML 1,000 ML ONE (07:35)
[2018-01-15] MEDS ORDERED: SODIUM CHLORIDE 0.9% 1000ML 1,000 ML IV SCH (07:45)
[2018-01-15] MEDS ORDERED: SODIUM CHLORIDE 0.9% 1000ML 1,000 ML IV ONE (07:45)
[2018-01-15 07:48] LABS: ALANINE AMINOTRANSFERASE 17 IU/L (0-55); ALBUMIN 3.2 g/dL (3.5-5.0); ALKALINE PHOSPHATASE 77 IU/L (40-150); ANION GAP 14.1 mmol/L (8-16); BLOOD UREA NITROGEN 13 mg/dL (7-26); BUN/CREATININE RATIO 10 (6-25); CALCIUM 8.6 mg/dL (8.4-10.2); CARBON DIOXIDE 26 mmol/L (22-29); CHLORIDE 104 mmol/L (98-107); CREATINE KINASE 50 IU/L (30-200); CREATININE, SERUM 1.34 mg/dL (0.72-1.25); EST GLOMERULAR FILTRATION RATE 51 ML/MIN (60-); GLUCOSE 171 mg/dL (74-118); POTASSIUM 3.1 mmol/L (3.5-5.1); SODIUM 141 mmol/L (136-145)
[2018-01-15 08:15] LABS: INR 1.2; PROTHROMBIN TIME 14.3 seconds (11.9-14.5)
[2018-01-15 08:16] LABS: PARTIAL THROMBOPLASTIN TIME 28.7 seconds (23.8-35.5)
[2018-01-15 08:23] LABS: CREATINE KINASE MB < 1.00 ng/mL (0-4.3)
[2018-01-15] MEDS ORDERED: SODIUM CHLORIDE 0.9% 500ML 500 ML ONE (08:49)
[2018-01-15 08:54] LABS: BASOPHILS % 0.2 % (0.0-1.0); EOSINOPHILS # (AUTO) 0.3 (0.0-0.4); HEMATOCRIT 26.6 % (38.2-49.6); HEMOGLOBIN 8.6 g/dL (14.0-18.0); LYMPHOCYTES # (AUTO) 1.1 (1.0-3.2); LYMPHOCYTES % 7.7 % (18.0-39.1); MEAN CORPUSCULAR HEMOGLOBIN 28.1 pg (28-32); MEAN CORPUSCULAR HGB CONC 32.3 g/dL (31-35); MEAN CORPUSCULAR VOLUME 86.9 fL (81-99); MONOCYTES # (AUTO) 0.8 (0.2-0.8); MONOCYTES % 5.6 % (4.4-11.3); NEUTROPHILS # (AUTO) 11.7 (2.1-6.9); PLATELET COUNT 103 x10e3/uL (140-360); RED BLOOD COUNT 3.06 x10e6/uL (4.3-5.7); RED CELL DISTRIBUTION WIDTH 17.5 % (11.7-14.4)
[2018-01-15] MEDS ORDERED: SODIUM CHLORIDE 0.9% 250ML 250 ML IV ONE (09:00)
[2018-01-15] MEDS ORDERED: SODIUM CHLORIDE 0.9% 500ML 500 ML IV ONE (09:00)
[2018-01-15] MEDS: POTASSIUM CHLORIDE 10MEQ EA PO SCH (09:40)
[2018-01-15] MEDS ORDERED: PANTOPRAZOLE 40 MG 10ML VIAL IV SCH (10:00)
[2018-01-15] MEDS ORDERED: SODIUM CHLORIDE 0.9% 250ML 250 ML ONE ×3 (10:37→21:39)
[2018-01-15 10:42] LABS: CALCIUM 7.8 mg/dL (8.4-10.2); CREATININE, SERUM 1.32 mg/dL (0.72-1.25)
[2018-01-15] MEDS: FUROSEMIDE INJ 10 MG/ML 2 ML VIAL IV PRN ×2 (11:05→18:49)
--- NOTE | 2018-01-15 11:38 | History and Physical ---
He is a 82-year-old male patient of [employer] presented to the emergency room with complaint of bright red rectal bleeding on two occasions. It was just all pure bloody diarrhea. HISTORY OF PRESENT ILLNESS: Mr. Luis Kilpatrick is an 82-year-old male patient who has recently had a bypass surgery and who has a medical history of coronary artery disease, diabetes mellitus, peripheral artery disease, and hypertension. ALLERGIES: NO KNOWN DRUG ALLERGIES. MEDICATIONS: Patient was on Plavix, amlodipine, aspirin, Lipitor, and Clonidine. While patient was in the ER, he has four other time severe bleeding episode. The patient was admitted to the [facility] which is now upgraded to ICU. Patient is receiving blood products 2 unit of packed RBC as his hemoglobin had dropped and he is also getting platelet transfusion and patient will be getting CT scan of the abdomen and bleeding scan. SOCIAL HISTORY: Denies smoking and denies using alcohol. FAMILY HISTORY: Hypertension. PAST SURGICAL HISTORY: Patient had a previous colonoscopy done. Patient also has history of recent coronary artery bypass surgery. PHYSICAL EXAMINATION GENERAL: He is an elderly male patient, lying in the bed, not in any acute distress. He is apprehensive. VITALS: Temperature 99, pulse rate 110, respiration rate 20, and blood pressure 102/70. HEENT: Normocephalic and atraumatic. NECK: No JVD. No adenopathy. LUNGS: Bilateral equal fair air entry. No rales. No rhonchi. HEART: S1 and S2, regular. Systolic murmur present. ABDOMEN: Soft. Bowel sounds are present. NEUROLOGIC: No focal neurological deficit. ADMITTING IMPRESSION/DIAGNOSES 1. Acute severe gastrointestinal bleed. 2. Lower rectal bleeding. 3. Renal insufficiency. 4. Hypokalemia. 5. Diabetes mellitus. 6. Anemia is secondary to acute gastrointestinal blood loss. PLAN: Patient has been admitted with the above diagnosis in ICU. Patient will have ICU monitoring. Patient will receive packed RBC and platelet, and patient will get a CT and bleeding scan and GI evaluation by Dr. Gray. Job#: [id number] GREGORIO
[2018-01-15 11:59] LABS: ANISOCYTOSIS SLIGHT; HYPOCHROMASIA SLIGHT; PLATELET ESTIMATE SLIGHTLY DECREASED; PLATELET MORPHOLOGY COMMENT FEW LARGE; RBC MORPHOLOGY COMMENT NORMAL
[2018-01-15] MEDS ORDERED: PEG (High)/E-LYTE SOLN 4,000 ML BTL PO ONE (15:15)
[2018-01-15] MEDS: PREGABALIN 50 MG CAP PO SCH ×2 (17:36→21:19)
[2018-01-15] MEDS: PANTOPRAZOLE SOD 40 MG TABEC PO SCH (17:36)
[2018-01-15] MEDS: GABAPENTIN 400 MG CAP PO SCH (17:37)
[2018-01-15] MEDS: ATORVASTATIN 10 MG TAB PO SCH (21:19)
[2018-01-16] VITALS (26 sets, daily range): BP systolic 145–209; BP diastolic 79–99
[2018-01-16 00:11] LABS: HEMATOCRIT 32.9 % (38.2-49.6); HEMOGLOBIN 11.2 g/dL (14.0-18.0)
[2018-01-16 05:07] LABS: BASOPHILS % 0.4 % (0.0-1.0); EOSINOPHILS # (AUTO) 0.2 (0.0-0.4); EOSINOPHILS % 2.7 % (0.0-6.0); HEMOGLOBIN 11.3 g/dL (14.0-18.0); LYMPHOCYTES # (AUTO) 1.1 (1.0-3.2); LYMPHOCYTES % 15.6 % (18.0-39.1); MEAN CORPUSCULAR HGB CONC 34.2 g/dL (31-35); MEAN CORPUSCULAR VOLUME 84.6 fL (81-99); MONOCYTES # (AUTO) 0.6 (0.2-0.8); MONOCYTES % 8.9 % (4.4-11.3); NEUTROPHILS # (AUTO) 5.1 (2.1-6.9); PLATELET COUNT 187 x10e3/uL (140-360); RED CELL DISTRIBUTION WIDTH 16.5 % (11.7-14.4)
[2018-01-16] MEDS: PREGABALIN 50 MG CAP PO SCH (05:22)
[2018-01-16 05:31] LABS: ALANINE AMINOTRANSFERASE 17 IU/L (0-55); ALBUMIN/GLOBULIN RATIO 1.1 (0.8-2.0); ALKALINE PHOSPHATASE 57 IU/L (40-150); ANION GAP 14.4 mmol/L (8-16); BLOOD UREA NITROGEN 16 mg/dL (7-26); BUN/CREATININE RATIO 14 (6-25); CALCIUM 8.3 mg/dL (8.4-10.2); CARBON DIOXIDE 26 mmol/L (22-29); CHLORIDE 106 mmol/L (98-107); CREATININE, SERUM 1.11 mg/dL (0.72-1.25); EST GLOMERULAR FILTRATION RATE > 60 ML/MIN (60-); GLUCOSE 100 mg/dL (74-118); POTASSIUM 3.4 mmol/L (3.5-5.1); SODIUM 143 mmol/L (136-145)
[2018-01-16] MEDS ORDERED: METOPROLOL TARTRATE INJ 1 MG/ML VIAL IV ONE (10:00)
[2018-01-16] MEDS: KCL 20MEQ/.9 SOD CHL 1,000 ML IV SCH ×2 (10:20→22:07)
[2018-01-16 11:17] LABS: HEMATOCRIT 34.5 % (38.2-49.6); HEMOGLOBIN 11.6 g/dL (14.0-18.0)
[2018-01-16] MEDS: METOPROLOL TARTRATE INJ 1 MG/ML VIAL IV PRN (13:00)
--- NOTE | 2018-01-16 19:33 | Operative Report ---
DATE OF PROCEDURE: January 16, 2018 REFERRING PHYSICIAN: Dr. Kane Figueredo. PROCEDURE PERFORMED: Colonoscopy and polypectomy. INDICATIONS FOR COLONOSCOPY: Rectal bleeding. MEDICATION: Patient was done under MAC, please see anesthesiologist's note. PROCEDURE: With the patient in left lateral decubitus position, a flexible fiberoptic Olympus colonoscope was inserted into the rectum with ease and advanced all the way to the cecum. Diverticular disease was noted to be scattered throughout all the way to the cecum. The scope was then withdrawn slowly. Other than for diverticular disease, the cecum and ascending grossly appeared to be within normal limits. An approximately 1.2 cm sessile polypoid lesion was noted in the distal transverse colon that was removed per snare electrocautery and polypectomy site was hemoclipped x2. The descending and the sigmoid other than for diverticular disease appeared to be within normal limits. Three polyps were snared from the rectum. The scope was then retroflexed into the distal rectum and small internal hemorrhoids were noted, none of which was actively bleeding. The scope was then straightened out and was subsequently withdrawn. Patient tolerated the procedure well. IMPRESSION 1. Diverticulosis. 2. Transverse colon polyp, approximately 1.2 cm in size, removed per snare electrocautery and site was hemoclipped x2. 3. Rectal polyps x3, snared. 4. Internal hemorrhoids, none actively bleeding. PLAN: Follow up histology. Follow up H and H. Initiate full liquid diet. Patient most likely bled from his diverticular disease. We will need to keep him off his anticoagulants until seen by his entertainment lawyer, Dr. Shepherd. Timing of followup colonoscopy pending pathology report. Job#: [id number] VAS cc:DR. KRISTA SHEPHERD
[2018-01-16 20:54] LABS: HEMATOCRIT 39.9 % (38.2-49.6); HEMOGLOBIN 12.8 g/dL (14.0-18.0)
[2018-01-16] MEDS: ATORVASTATIN 10 MG TAB PO SCH ×2 (20:57→21:23)
[2018-01-17] VITALS (26 sets, daily range): BP systolic 104–220; BP diastolic 59–111
[2018-01-17] MEDS: METOPROLOL TARTRATE INJ 1 MG/ML VIAL IV PRN (03:50)
[2018-01-17 04:48] LABS: BASOPHILS # (AUTO) 0.1 (0.0-0.1); BASOPHILS % 0.6 % (0.0-1.0); EOSINOPHILS # (AUTO) 0.6 (0.0-0.4); EOSINOPHILS % 6.8 % (0.0-6.0); HEMATOCRIT 35.8 % (38.2-49.6); HEMOGLOBIN 11.6 g/dL (14.0-18.0); LYMPHOCYTES # (AUTO) 0.9 (1.0-3.2); LYMPHOCYTES % 9.8 % (18.0-39.1); MEAN CORPUSCULAR HEMOGLOBIN 28.4 pg (28-32); MEAN CORPUSCULAR HGB CONC 32.4 g/dL (31-35); MEAN CORPUSCULAR VOLUME 87.5 fL (81-99); MONOCYTES # (AUTO) 0.7 (0.2-0.8); MONOCYTES % 7.5 % (4.4-11.3); NEUTROPHILS % 74.9 % (38.7-80.0); PLATELET COUNT 161 x10e3/uL (140-360); RED BLOOD COUNT 4.09 x10e6/uL (4.3-5.7); RED CELL DISTRIBUTION WIDTH 16.7 % (11.7-14.4)
[2018-01-17] MEDS ORDERED: HYDRALAZINE HCL 20 MG/ML VIAL IV STA (06:12)
[2018-01-17] MEDS ORDERED: HYDRALAZINE HCL 20 MG/ML VIAL IV PRN (06:15)
[2018-01-17 06:24] LABS: ALANINE AMINOTRANSFERASE 14 IU/L (0-55); ALKALINE PHOSPHATASE 55 IU/L (40-150); ANION GAP 13.7 mmol/L (8-16); BLOOD UREA NITROGEN 8 mg/dL (7-26); BUN/CREATININE RATIO 9 (6-25); CALCIUM 8.2 mg/dL (8.4-10.2); CARBON DIOXIDE 22 mmol/L (22-29); CHLORIDE 107 mmol/L (98-107); CREATININE, SERUM 0.87 mg/dL (0.72-1.25); EST GLOMERULAR FILTRATION RATE > 60 ML/MIN (60-); GLUCOSE 93 mg/dL (74-118); POTASSIUM 3.7 mmol/L (3.5-5.1); SODIUM 139 mmol/L (136-145)
[2018-01-17] MEDS: PANTOPRAZOLE SOD 40 MG TABEC PO SCH ×4 (07:48→16:30)
[2018-01-17] MEDS: FERROUS SULFATE 325 MG TAB PO SCH ×2 (08:18→09:00)
[2018-01-17] MEDS: PREGABALIN 50 MG CAP PO SCH ×5 (08:18→21:25)
[2018-01-17] MEDS: FOLIC ACID 1 MG TAB PO SCH ×2 (08:18→09:00)
[2018-01-17] MEDS: GABAPENTIN 400 MG CAP PO SCH (08:18)
[2018-01-17] MEDS: POTASSIUM CHLORIDE 10MEQ EA PO SCH ×2 (08:19→09:00)
[2018-01-17 11:43] LABS: HEMATOCRIT 37.8 % (38.2-49.6); HEMOGLOBIN 12.6 g/dL (14.0-18.0)
[2018-01-17 18:30] LABS: HEMATOCRIT 39.8 % (38.2-49.6); HEMOGLOBIN 12.9 g/dL (14.0-18.0)
[2018-01-17] MEDS: KCL 20MEQ/.9 SOD CHL 1,000 ML IV SCH (19:00)
[2018-01-18] VITALS (18 sets, daily range): BP systolic 107–199; BP diastolic 63–105
[2018-01-18 04:59] LABS: BASOPHILS % 0.5 % (0.0-1.0); EOSINOPHILS # (AUTO) 0.4 (0.0-0.4); EOSINOPHILS % 5.1 % (0.0-6.0); HEMATOCRIT 35.4 % (38.2-49.6); HEMOGLOBIN 11.3 g/dL (14.0-18.0); LYMPHOCYTES % 11.7 % (18.0-39.1); MEAN CORPUSCULAR HEMOGLOBIN 28.5 pg (28-32); MEAN CORPUSCULAR HGB CONC 31.9 g/dL (31-35); MEAN CORPUSCULAR VOLUME 89.2 fL (81-99); MONOCYTES % 11.8 % (4.4-11.3); NEUTROPHILS # (AUTO) 6.1 (2.1-6.9); NEUTROPHILS % 70.6 % (38.7-80.0); PLATELET COUNT 156 x10e3/uL (140-360); RED BLOOD COUNT 3.97 x10e6/uL (4.3-5.7); RED CELL DISTRIBUTION WIDTH 16.9 % (11.7-14.4)
[2018-01-18 05:25] LABS: ALANINE AMINOTRANSFERASE 11 IU/L (0-55); ALBUMIN 2.9 g/dL (3.5-5.0); ALKALINE PHOSPHATASE 55 IU/L (40-150); ANION GAP 15.1 mmol/L (8-16); BLOOD UREA NITROGEN 8 mg/dL (7-26); BUN/CREATININE RATIO 8 (6-25); CALCIUM 8.4 mg/dL (8.4-10.2); CARBON DIOXIDE 21 mmol/L (22-29); CHLORIDE 108 mmol/L (98-107); CREATININE, SERUM 1.05 mg/dL (0.72-1.25); EST GLOMERULAR FILTRATION RATE > 60 ML/MIN (60-); GLUCOSE 100 mg/dL (74-118); POTASSIUM 4.1 mmol/L (3.5-5.1); SODIUM 140 mmol/L (136-145)
[2018-01-18] MEDS: PREGABALIN 50 MG CAP PO SCH ×3 (06:29→21:55)
[2018-01-18] MEDS: PANTOPRAZOLE SOD 40 MG TABEC PO SCH ×2 (07:40→16:30)
[2018-01-18] MEDS: KCL 20MEQ/.9 SOD CHL 1,000 ML IV SCH (07:41)
[2018-01-18] MEDS: POTASSIUM CHLORIDE 10MEQ EA PO SCH (08:03)
[2018-01-18] MEDS: FOLIC ACID 1 MG TAB PO SCH (08:03)
[2018-01-18] MEDS: FERROUS SULFATE 325 MG TAB PO SCH (08:03)
[2018-01-18] MEDS: CARVEDILOL 12.5 MG TAB PO SCH ×2 (10:19→16:34)
[2018-01-18] MEDS: RAMIPRIL 2.5 MG CAP PO SCH (10:19)
[2018-01-18 11:55] LABS: HEMATOCRIT 37.3 % (38.2-49.6); HEMOGLOBIN 12.1 g/dL (14.0-18.0)
[2018-01-18 18:38] LABS: BASOPHILS # (AUTO) 0.1 (0.0-0.1); BASOPHILS % 0.6 % (0.0-1.0); EOSINOPHILS # (AUTO) 0.6 (0.0-0.4); EOSINOPHILS % 6.5 % (0.0-6.0); HEMATOCRIT 37.4 % (38.2-49.6); HEMOGLOBIN 12.1 g/dL (14.0-18.0); LYMPHOCYTES # (AUTO) 1.1 (1.0-3.2); LYMPHOCYTES % 10.9 % (18.0-39.1); MEAN CORPUSCULAR HEMOGLOBIN 29.2 pg (28-32); MEAN CORPUSCULAR HGB CONC 32.4 g/dL (31-35); MEAN CORPUSCULAR VOLUME 90.1 fL (81-99); MONOCYTES # (AUTO) 0.7 (0.2-0.8); MONOCYTES % 6.8 % (4.4-11.3); NEUTROPHILS # (AUTO) 7.2 (2.1-6.9); NEUTROPHILS % 74.8 % (38.7-80.0); PLATELET COUNT 157 x10e3/uL (140-360); RED BLOOD COUNT 4.15 x10e6/uL (4.3-5.7); RED CELL DISTRIBUTION WIDTH 17.1 % (11.7-14.4)
[2018-01-18 18:49] LABS: INR 1.04; PROTHROMBIN TIME 14.5 seconds (11.9-14.5)
[2018-01-18 18:50] LABS: PARTIAL THROMBOPLASTIN TIME 32.7 seconds (23.8-35.5)
[2018-01-18] MEDS ORDERED: PHYTONADIONE 10MG/ML 20 MG in SODIUM CHLORIDE 0.9% 50ML 50 ML IV ONE (19:30)
[2018-01-18] MEDS ORDERED: SODIUM CHLORIDE 0.9% 250ML 250 ML ONE (19:43)
[2018-01-18] MEDS: AMLODIPINE BESYLATE 10 MG TAB PO SCH (21:55)
[2018-01-18] MEDS: ATORVASTATIN 10 MG TAB PO SCH (21:55)
--- NOTE | 2018-01-18 23:47 | Diagnostic Imaging Report ---
EXAM: G I BLEED INDICATION: Gastrointestinal bleeding COMPARISON: None FINDINGS: The patient's own red blood cells were labeled with 24 mCi of technetium-99m pertechnetate using the in vitro method (UltraTag). Dynamic images of the abdomen were obtained through 60 minutes. Distribution of tracer activity appears physiologic throughout the abdomen. No abnormal accumulation of tracer is seen within the gastrointestinal lumen. IMPRESSION: There is no scan evidence of active gastrointestinal bleeding at this time. Signed by: Dr. Tesha Mora M.D. on 01/18/2018 11:42 PM
[2018-01-19] VITALS (7 sets, daily range): BP systolic 122–179; BP diastolic 61–87
[2018-01-19 05:34] LABS: BASOPHILS % 0.5 % (0.0-1.0); EOSINOPHILS # (AUTO) 0.7 (0.0-0.4); EOSINOPHILS % 9.2 % (0.0-6.0); HEMATOCRIT 32.6 % (38.2-49.6); HEMOGLOBIN 10.9 g/dL (14.0-18.0); LYMPHOCYTES # (AUTO) 1.1 (1.0-3.2); MEAN CORPUSCULAR HEMOGLOBIN 29.5 pg (28-32); MEAN CORPUSCULAR HGB CONC 33.4 g/dL (31-35); MEAN CORPUSCULAR VOLUME 88.1 fL (81-99); MONOCYTES # (AUTO) 0.7 (0.2-0.8); MONOCYTES % 9.2 % (4.4-11.3); NEUTROPHILS # (AUTO) 4.9 (2.1-6.9); NEUTROPHILS % 65.8 % (38.7-80.0); PLATELET COUNT 138 x10e3/uL (140-360); RED CELL DISTRIBUTION WIDTH 16.8 % (11.7-14.4)
[2018-01-19] MEDS: PREGABALIN 50 MG CAP PO SCH ×3 (05:50→21:39)
[2018-01-19 08:22] LABS: ANION GAP 13.7 mmol/L (8-16); BLOOD UREA NITROGEN 14 mg/dL (7-26); BUN/CREATININE RATIO 13 (6-25); CALCIUM 8.6 mg/dL (8.4-10.2); CARBON DIOXIDE 24 mmol/L (22-29); CHLORIDE 106 mmol/L (98-107); CREATININE, SERUM 1.09 mg/dL (0.72-1.25); EST GLOMERULAR FILTRATION RATE > 60 ML/MIN (60-); GLUCOSE 98 mg/dL (74-118); POTASSIUM 3.7 mmol/L (3.5-5.1); SODIUM 140 mmol/L (136-145)
[2018-01-19] MEDS: CARVEDILOL 12.5 MG TAB PO SCH ×2 (08:45→17:43)
[2018-01-19] MEDS: PANTOPRAZOLE SOD 40 MG TABEC PO SCH ×2 (08:45→17:43)
[2018-01-19] MEDS: RAMIPRIL 2.5 MG CAP PO SCH (08:45)
[2018-01-19] MEDS: POTASSIUM CHLORIDE 10MEQ EA PO SCH (08:45)
[2018-01-19] MEDS: FERROUS SULFATE 325 MG TAB PO SCH (08:45)
[2018-01-19] MEDS: FOLIC ACID 1 MG TAB PO SCH (08:45)
[2018-01-19] MEDS ORDERED: SODIUM CHLORIDE 0.9% 50ML 50 ML ONE ×2 (08:52→19:42)
[2018-01-19] MEDS ORDERED: PHYTONADIONE 10MG/ML 20 MG in SODIUM CHLORIDE 0.9% 50ML 50 ML IV SCH (09:00)
[2018-01-19] MEDS ORDERED: PHYTONADIONE 10MG/ML 1 ML ONE (09:53)
[2018-01-19] MEDS ORDERED: PHYTONADIONE 10MG/ML 20 MG in SODIUM CHLORIDE 0.9% 50ML 50 ML IV ONE (10:00)
[2018-01-19] MEDS ORDERED: DIATRIZOATE MEGL/DIATRIZOA SOD 30 ML BTL PO ONE (15:05)
[2018-01-19] MEDS ORDERED: BALSAM PERU/CASTOR OIL 60 GM OINT...G. TP PRN (16:15)
--- NOTE | 2018-01-19 19:27 | Diagnostic Imaging Report ---
EXAMINATION: CT of the abdomen and pelvis with contrast. TECHNIQUE: Spiral CT images of the abdomen and pelvis were performed from the lung bases to the lesser trochanters after the intravenous administration of 100 cc of Isovue 370 and the oral administration of dilute Gastrografin. Coronal and sagittal reformatted images were obtained. COMPARISON: CT abdomen and pelvis 08/07/2016 CLINICAL HISTORY:All abdominal pain, recurrent rectal bleeding, bright red blood in stool DISCUSSION: ABDOMEN/PELVIS: LOWER THORAX:Small to moderate left pleural effusion and associated compressive atelectasis of the left lower lobe. Atherosclerotic calcification of the thoracic aorta and coronary arteries HEPATOBILIARY: No focal hepatic lesions. No intra or extrahepatic biliary ductal dilation. GALLBLADDER: No radio-opaque stones or sludge. No wall thickening. SPLEEN: No splenomegaly. PANCREAS: No focal masses or ductal dilatation. ADRENALS: No adrenal nodules. KIDNEYS/URETERS: No hydronephrosis, stones, or solid mass lesions. Slight interval increase in size of 4.3 x 3.4 cm simple cyst in the posterior interpolar right kidney (series 2, image 36), which previously measured approximately 4.2 x 2.9 cm. Stable 3.4 x 2.1 cm simple cyst in the anterior interpolar right kidney (series 2, image 37). PELVIC ORGANS/BLADDER: Mild circumferential bladder wall thickening. Prostate is enlarged, measuring approximately 5.4 cm in transverse diameter. PERITONEUM/RETROPERITONEUM: No free air or fluid. LYMPH NODES: No intra-abdominal, retroperitoneal, pelvic or inguinal lymphadenopathy. VESSELS: Atherosclerotic calcification of the abdominal aorta and iliac vessels. GI TRACT: Extensive diverticulosis of the sigmoid. Mild to moderate wall thickening in the proximal and mid to distal sigmoid colon (for example series 2, images 74 and 68), which may reflect muscular hypertrophy. No surrounding inflammatory changes to suggest diverticulitis. No foci of extra luminal air. No definite intraluminal masses are seen. Appendix is well identified and normal in caliber. BONES AND SOFT TISSUE: No aggressive lytic lesions. Stable grade 1 anterolisthesis of L5 on S1 secondary to bilateral pars interarticularis defects. Small fat-containing right internal hernia. IMPRESSION: 1. Extensive diverticulosis of the sigmoid, with mild to moderate wall thickening in the proximal and mid to distal sigmoid, which may reflect muscular hypertrophy. No surrounding fat stranding/inflammatory changes are noted to suggest acute diverticulitis. No foci of extraluminal air to suggest perforation. No bowel intraluminal masses are identified. Recommend direct visualization with endoscopy for further evaluation. 2. Slight interval increase in size of 4.3 cm simple cyst in the right kidney. 3. Small to moderate left pleural effusion and associated compressive atelectasis of the left lower lobe. Signed by: Dr. Alexandro Fu M.D. on 01/19/2018 7:23 PM
[2018-01-19] MEDS ORDERED: IOPAMIDOL 370 MG/ML 200 ML INFUS..BTL INJ ONE (19:42)
[2018-01-19] MEDS: ATORVASTATIN 10 MG TAB PO SCH (21:38)
[2018-01-19] MEDS: AMLODIPINE BESYLATE 10 MG TAB PO SCH (21:39)
[2018-01-19] MEDS: BALSAM PERU/CASTOR OIL 60 GM OINT...G. TP SCH (21:42)
[2018-01-20] VITALS (8 sets, daily range): BP systolic 118–174; BP diastolic 61–79
[2018-01-20 04:20] LABS: BASOPHILS # (AUTO) 0.1 (0.0-0.1); BASOPHILS % 0.7 % (0.0-1.0); EOSINOPHILS # (AUTO) 0.9 (0.0-0.4); EOSINOPHILS % 12.6 % (0.0-6.0); HEMATOCRIT 32.3 % (38.2-49.6); HEMOGLOBIN 10.7 g/dL (14.0-18.0); LYMPHOCYTES # (AUTO) 1.1 (1.0-3.2); LYMPHOCYTES % 15.9 % (18.0-39.1); MEAN CORPUSCULAR HEMOGLOBIN 29.3 pg (28-32); MEAN CORPUSCULAR HGB CONC 33.1 g/dL (31-35); MEAN CORPUSCULAR VOLUME 88.5 fL (81-99); MONOCYTES # (AUTO) 0.6 (0.2-0.8); MONOCYTES % 8.2 % (4.4-11.3); NEUTROPHILS # (AUTO) 4.3 (2.1-6.9); NEUTROPHILS % 62.2 % (38.7-80.0); PLATELET COUNT 133 x10e3/uL (140-360); RED BLOOD COUNT 3.65 x10e6/uL (4.3-5.7); RED CELL DISTRIBUTION WIDTH 16.8 % (11.7-14.4)
[2018-01-20] MEDS: PREGABALIN 50 MG CAP PO SCH ×3 (05:04→21:54)
[2018-01-20] MEDS ORDERED: BALSAM PERU/CASTOR OIL 60 GM OINT...G. TP SCH (09:00)
[2018-01-20] MEDS: CARVEDILOL 12.5 MG TAB PO SCH ×2 (09:25→17:15)
[2018-01-20] MEDS: RAMIPRIL 2.5 MG CAP PO SCH (09:25)
[2018-01-20] MEDS: POTASSIUM CHLORIDE 10MEQ EA PO SCH (09:25)
[2018-01-20] MEDS: PANTOPRAZOLE SOD 40 MG TABEC PO SCH ×2 (09:25→17:15)
[2018-01-20] MEDS: FOLIC ACID 1 MG TAB PO SCH (09:25)
[2018-01-20] MEDS: FERROUS SULFATE 325 MG TAB PO SCH (09:25)
[2018-01-20] MEDS ORDERED: FUROSEMIDE 20 MG TAB PO ONE (10:30)
[2018-01-20] MEDS: AMLODIPINE BESYLATE 10 MG TAB PO SCH (21:54)
[2018-01-20] MEDS: ATORVASTATIN 10 MG TAB PO SCH (21:54)
[2018-01-21] VITALS (8 sets, daily range): BP systolic 118–154; BP diastolic 56–76
[2018-01-21 04:46] LABS: BASOPHILS # (AUTO) 0.1 (0.0-0.1); BASOPHILS % 0.5 % (0.0-1.0); EOSINOPHILS # (AUTO) 0.3 (0.0-0.4); EOSINOPHILS % 3.4 % (0.0-6.0); HEMATOCRIT 32.4 % (38.2-49.6); HEMOGLOBIN 10.7 g/dL (14.0-18.0); LYMPHOCYTES # (AUTO) 0.9 (1.0-3.2); MEAN CORPUSCULAR HEMOGLOBIN 29.1 pg (28-32); MONOCYTES # (AUTO) 0.8 (0.2-0.8); MONOCYTES % 8.8 % (4.4-11.3); NEUTROPHILS # (AUTO) 7.1 (2.1-6.9); PLATELET COUNT 111 x10e3/uL (140-360); RED BLOOD COUNT 3.68 x10e6/uL (4.3-5.7); RED CELL DISTRIBUTION WIDTH 16.5 % (11.7-14.4)
[2018-01-21] MEDS: PREGABALIN 50 MG CAP PO SCH ×3 (05:49→20:38)
[2018-01-21] MEDS: PANTOPRAZOLE SOD 40 MG TABEC PO SCH ×2 (07:30→16:30)
[2018-01-21] MEDS: FOLIC ACID 1 MG TAB PO SCH (08:59)
[2018-01-21] MEDS: POTASSIUM CHLORIDE 10MEQ EA PO SCH (08:59)
[2018-01-21] MEDS: CARVEDILOL 12.5 MG TAB PO SCH ×2 (08:59→17:00)
[2018-01-21] MEDS: FERROUS SULFATE 325 MG TAB PO SCH (08:59)
[2018-01-21] MEDS: RAMIPRIL 2.5 MG CAP PO SCH (08:59)
[2018-01-21] MEDS: BALSAM PERU/CASTOR OIL 60 GM OINT...G. TP SCH (09:45)
[2018-01-21 12:30] LABS: ANISOCYTOSIS SLIGHT; HYPOCHROMASIA SLIGHT; RBC MORPHOLOGY COMMENT NORMAL
[2018-01-21 12:31] LABS: PLATELET ESTIMATE SLIGHTLY DECREASED; PLATELET MORPHOLOGY COMMENT FEW LARGE
[2018-01-21] MEDS: ACETAMINOPHEN 325 MG TAB PO PRN (17:39)
[2018-01-21] MEDS: ATORVASTATIN 10 MG TAB PO SCH (20:38)
[2018-01-21] MEDS: AMLODIPINE BESYLATE 10 MG TAB PO SCH (20:38)
[2018-01-22] VITALS (10 sets, daily range): BP systolic 91–146; BP diastolic 52–70
[2018-01-22 04:40] LABS: BASOPHILS % 0.4 % (0.0-1.0); EOSINOPHILS # (AUTO) 0.2 (0.0-0.4); EOSINOPHILS % 1.5 % (0.0-6.0); HEMATOCRIT 30.8 % (38.2-49.6); LYMPHOCYTES # (AUTO) 1.1 (1.0-3.2); LYMPHOCYTES % 9.8 % (18.0-39.1); MEAN CORPUSCULAR HEMOGLOBIN 28.9 pg (28-32); MEAN CORPUSCULAR HGB CONC 32.5 g/dL (31-35); MONOCYTES # (AUTO) 1.2 (0.2-0.8); MONOCYTES % 10.9 % (4.4-11.3); NEUTROPHILS # (AUTO) 8.4 (2.1-6.9); PLATELET COUNT 131 x10e3/uL (140-360); RED BLOOD COUNT 3.46 x10e6/uL (4.3-5.7); RED CELL DISTRIBUTION WIDTH 16.5 % (11.7-14.4)
[2018-01-22 05:03] LABS: ALBUMIN 2.8 g/dL (3.5-5.0); ALBUMIN/GLOBULIN RATIO 0.8 (0.8-2.0); CALCIUM 8.6 mg/dL (8.4-10.2); CREATININE, SERUM 1.37 mg/dL (0.72-1.25)
[2018-01-22] MEDS: PREGABALIN 50 MG CAP PO SCH (05:32)
[2018-01-22] MEDS: PANTOPRAZOLE SOD 40 MG TABEC PO SCH ×2 (07:30→16:30)
[2018-01-22] MEDS: RAMIPRIL 2.5 MG CAP PO SCH (08:47)
[2018-01-22] MEDS: CARVEDILOL 12.5 MG TAB PO SCH ×2 (08:47→17:00)
[2018-01-22] MEDS: FOLIC ACID 1 MG TAB PO SCH (08:48)
[2018-01-22] MEDS: POTASSIUM CHLORIDE 10MEQ EA PO SCH (08:48)
[2018-01-22] MEDS: FERROUS SULFATE 325 MG TAB PO SCH (08:48)
[2018-01-22] MEDS: BALSAM PERU/CASTOR OIL 60 GM OINT...G. TP SCH (10:00)
--- NOTE | 2018-01-22 12:16 | Diagnostic Imaging Report ---
PROCEDURE: Frontal and lateral views of the chest. COMPARISON: Chest radiograph 06/17/17. INDICATIONS: FEVER FINDINGS: Lines/tubes: None. Lungs: Moderate lung volumes. There is patchy opacity at the left lung base. Subsegmental linear left mid and lower lung zone atelectasis. There is no evidence of pneumonia or pulmonary edema. Pleura: There is no evidence of pneumothorax. Small left pleural effusion. Heart and mediastinum: The cardiomediastinal silhouette is unchanged. Bones: No acute bony abnormality. Status post median sternotomy. IMPRESSION: Small left pleural effusion with patchy left retrocardiac opacity, which could reflect pneumonia or atelectasis in the appropriate clinical setting. Follow-up chest radiograph in 6-8 weeks is suggested to assess for resolution. Dictated by: GUILLERMINA BRUCE M.D. on 01/22/2018 at 12:23 Electronically approved by: GUILLERMINA BRUCE M.D. on 01/22/2018 at 12:23
[2018-01-22 14:29] LABS: CLARITY,URINE SL CLOUDY (CLEAR); COLOR,URINE YELLOW (YELLOW); LEUKOCYTE ESTERASE ,URINE TRACE (NEGATIVE); NITRITE,URINE NEGATIVE (NEGATIVE); PROTEIN,URINE DIPSTICK 1+ (NEGATIVE)
[2018-01-22 14:30] LABS: BILIRUBIN,URINE NEGATIVE (NEGATIVE); KETONES,URINE NEGATIVE (NEGATIVE); URINE UROBILINOGEN 0.2 mg/dL (0.2 - 1)
[2018-01-22 14:38] LABS: AMORPHOUS SEDIMENT,URINE FEW (FEW); BACTERIA,URINE MODERATE /HPF
[2018-01-22 18:03] LABS: BLEEDING TIME 3.5 MINUTES (1-7)
[2018-01-22 18:06] LABS: BASOPHILS # (AUTO) 0.1 (0.0-0.1); BASOPHILS % 0.6 % (0.0-1.0); EOSINOPHILS # (AUTO) 0.4 (0.0-0.4); EOSINOPHILS % 3.7 % (0.0-6.0); HEMATOCRIT 32.2 % (38.2-49.6); HEMOGLOBIN 10.6 g/dL (14.0-18.0); LYMPHOCYTES # (AUTO) 1.1 (1.0-3.2); LYMPHOCYTES % 11.4 % (18.0-39.1); MEAN CORPUSCULAR HEMOGLOBIN 29.7 pg (28-32); MEAN CORPUSCULAR HGB CONC 32.9 g/dL (31-35); MEAN CORPUSCULAR VOLUME 90.2 fL (81-99); MONOCYTES # (AUTO) 1.1 (0.2-0.8); MONOCYTES % 10.9 % (4.4-11.3); NEUTROPHILS # (AUTO) 7.3 (2.1-6.9); PLATELET COUNT 164 x10e3/uL (140-360); RED BLOOD COUNT 3.57 x10e6/uL (4.3-5.7); RED CELL DISTRIBUTION WIDTH 16.6 % (11.7-14.4)
[2018-01-22 18:29] LABS: INR 1.05; PROTHROMBIN TIME 14.7 seconds (11.9-14.5)
[2018-01-22 18:30] LABS: PARTIAL THROMBOPLASTIN TIME 41.7 seconds (23.8-35.5)
--- NOTE | 2018-01-22 21:17 | Diagnostic Imaging Report ---
Tagged-RBC GI Bleed Study Clinical information: 82-year-old male with gastrointestinal bleeding. Discussion: The patient's own red blood cells were labeled with 27.5 mCi of technetium-99m pertechnetate using the in vitro method (UltraTag). Dynamic images of the abdomen were obtained through 60 minutes. Distribution of tracer activity appears physiologic throughout the abdomen. No abnormal accumulation of tracer is seen within the gastrointestinal lumen. Impression: No scan evidence of active gastrointestinal bleeding at this time. Signed by: Dr. Cheri Hendrix M.D. on 01/22/2018 9:13 PM
[2018-01-22] MEDS: AMLODIPINE BESYLATE 10 MG TAB PO SCH (21:55)
[2018-01-22] MEDS: ATORVASTATIN 10 MG TAB PO SCH (21:55)
[2018-01-22] MEDS ORDERED: SODIUM CHLORIDE 0.9% 250ML 250 ML ONE (22:53)
[2018-01-23] VITALS: BP 97/62
[2018-01-23 04:30] VITALS: BP 129/74
[2018-01-23 04:40] LABS: BASOPHILS % 0.3 % (0.0-1.0); EOSINOPHILS # (AUTO) 0.5 (0.0-0.4); EOSINOPHILS % 6.7 % (0.0-6.0); HEMATOCRIT 24.9 % (38.2-49.6); LYMPHOCYTES # (AUTO) 1.1 (1.0-3.2); LYMPHOCYTES % 14.6 % (18.0-39.1); MEAN CORPUSCULAR HEMOGLOBIN 29.2 pg (28-32); MEAN CORPUSCULAR HGB CONC 32.5 g/dL (31-35); MEAN CORPUSCULAR VOLUME 89.9 fL (81-99); MONOCYTES # (AUTO) 0.7 (0.2-0.8); MONOCYTES % 10.3 % (4.4-11.3); NEUTROPHILS # (AUTO) 4.9 (2.1-6.9); NEUTROPHILS % 67.5 % (38.7-80.0); PLATELET COUNT 136 x10e3/uL (140-360); RED BLOOD COUNT 2.77 x10e6/uL (4.3-5.7); RED CELL DISTRIBUTION WIDTH 16.3 % (11.7-14.4)
[2018-01-23 04:45] LABS: HEMOGLOBIN 8.1 g/dL (14.0-18.0)
[2018-01-23] MEDS: PANTOPRAZOLE SOD 40 MG TABEC PO SCH ×2 (07:30→17:15)
[2018-01-23 07:31] VITALS: BP 124/58
[2018-01-23] MEDS ORDERED: SODIUM CHLORIDE 0.9% 250ML 250 ML IV ONE (10:45)
[2018-01-23] MEDS: CARVEDILOL 12.5 MG TAB PO SCH ×2 (10:55→17:15)
[2018-01-23] MEDS: RAMIPRIL 2.5 MG CAP PO SCH (10:56)
[2018-01-23 11:44] VITALS: BP 123/57
--- NOTE | 2018-01-23 15:28 | Operative Report ---
DATE OF PROCEDURE: January 23, 2018 REFERRING PHYSICIAN: Dr. Kane Figueredo PROCEDURE PERFORMED: Esophagogastroduodenoscopy with biopsies. INDICATIONS FOR EGD: Anemia, recurrent GI bleed. MEDICATION: Patient was done under MAC. Please see anesthesiologist's note. PROCEDURE: With the patient in the left lateral decubitus position, the flexible fiberoptic Olympus gastroscope was introduced into the esophagus under direct visualization without any difficulty. There was some patchy erythema noted in the distal esophagus. The scope was then advanced with ease into the stomach, traversing a small sliding hiatal hernia. Mucosa overlying the antrum revealed some patchy erythema and low-grade edema, and biopsies were obtained and sent to stain for H. pylori. There was some patchy nodularity noted in the body of the stomach, and biopsies were obtained. The pylorus was of normal contour and shape. It was intubated with ease, and the scope was advanced all the way to the 2nd portion of the duodenum. The scope was then withdrawn slowly. Mucosa overlying the proximal 2nd portion and the duodenal bulb appeared to be within normal limits. The scope was then withdrawn back into the stomach and retroflexed, and the mucosa overlying the fundus appeared to be within normal limits. The previously described hiatal hernia was also noted in the retroflexed position. The scope was then straightened out. It was subsequently withdrawn. Patient tolerated the procedure well. IMPRESSION 1. Distal esophagitis, mild. 2. Small sliding hiatal hernia. 3. Gastritis, biopsied. Biopsies sent to stain for H. pylori. PLAN: Follow up histology. Initiate Protonix 40 mg 1 p.o. q.a.m. a.c. Findings do not necessarily explain the patient's GI blood loss. She might benefit from a Meckel scan and, if negative, possibly a small-bowel series. Job#: [id number] cc:MD SHANE ARMENTA MD
[2018-01-23 16:23] VITALS: BP 130/63
[2018-01-23] MEDS ORDERED: SODIUM CHLORIDE 0.9% 250ML 250 ML ONE (16:36)
[2018-01-23] MEDS: FOLIC ACID 1 MG TAB PO SCH (17:15)
[2018-01-23] MEDS: POTASSIUM CHLORIDE 10MEQ EA PO SCH (17:15)
[2018-01-23] MEDS: FERROUS SULFATE 325 MG TAB PO SCH (17:16)
[2018-01-23] MEDS ORDERED: SODIUM CHLORIDE 0.9% 250ML 500 ML ONE (19:45)
[2018-01-23 20:12] VITALS: BP 118/58
[2018-01-23] MEDS: ATORVASTATIN 10 MG TAB PO SCH (21:41)
[2018-01-23] MEDS: AMLODIPINE BESYLATE 10 MG TAB PO SCH (21:41)
[2018-01-24] VITALS (9 sets, daily range): BP systolic 113–142; BP diastolic 57–68
[2018-01-24 05:23] LABS: BASOPHILS % 0.4 % (0.0-1.0); EOSINOPHILS # (AUTO) 0.6 (0.0-0.4); HEMATOCRIT 31.3 % (38.2-49.6); HEMOGLOBIN 10.5 g/dL (14.0-18.0); LYMPHOCYTES # (AUTO) 0.8 (1.0-3.2); MEAN CORPUSCULAR HEMOGLOBIN 29.1 pg (28-32); MEAN CORPUSCULAR HGB CONC 33.5 g/dL (31-35); MEAN CORPUSCULAR VOLUME 86.7 fL (81-99); MONOCYTES # (AUTO) 0.7 (0.2-0.8); MONOCYTES % 9.9 % (4.4-11.3); NEUTROPHILS # (AUTO) 4.7 (2.1-6.9); NEUTROPHILS % 68.1 % (38.7-80.0); PLATELET COUNT 196 x10e3/uL (140-360); RED BLOOD COUNT 3.61 x10e6/uL (4.3-5.7); RED CELL DISTRIBUTION WIDTH 16.5 % (11.7-14.4)
[2018-01-24] MEDS: CARVEDILOL 12.5 MG TAB PO SCH ×2 (09:00→17:13)
[2018-01-24] MEDS: FERROUS SULFATE 325 MG TAB PO SCH (09:00)
[2018-01-24] MEDS: POTASSIUM CHLORIDE 10MEQ EA PO SCH (09:00)
[2018-01-24] MEDS: FOLIC ACID 1 MG TAB PO SCH (09:00)
[2018-01-24] MEDS: PANTOPRAZOLE SOD 40 MG TABEC PO SCH ×2 (09:00→17:13)
[2018-01-24] MEDS: RAMIPRIL 2.5 MG CAP PO SCH (09:00)
[2018-01-24] MEDS ORDERED: FUROSEMIDE INJ 10 MG/ML 2 ML VIAL IV ONE (14:30)
[2018-01-24] MEDS: AMLODIPINE BESYLATE 10 MG TAB PO SCH (21:39)
[2018-01-24] MEDS: ATORVASTATIN 10 MG TAB PO SCH (21:39)
[2018-01-25] VITALS (7 sets, daily range): BP systolic 117–152; BP diastolic 59–81
[2018-01-25 04:46] LABS: BASOPHILS % 0.6 % (0.0-1.0); EOSINOPHILS # (AUTO) 0.4 (0.0-0.4); EOSINOPHILS % 5.4 % (0.0-6.0); HEMATOCRIT 33.4 % (38.2-49.6); LYMPHOCYTES # (AUTO) 0.8 (1.0-3.2); LYMPHOCYTES % 13.1 % (18.0-39.1); MEAN CORPUSCULAR HEMOGLOBIN 28.6 pg (28-32); MEAN CORPUSCULAR HGB CONC 32.9 g/dL (31-35); MEAN CORPUSCULAR VOLUME 86.8 fL (81-99); MONOCYTES # (AUTO) 0.8 (0.2-0.8); MONOCYTES % 11.8 % (4.4-11.3); NEUTROPHILS # (AUTO) 4.4 (2.1-6.9); NEUTROPHILS % 68.8 % (38.7-80.0); PLATELET COUNT 224 x10e3/uL (140-360); RED BLOOD COUNT 3.85 x10e6/uL (4.3-5.7); RED CELL DISTRIBUTION WIDTH 16.6 % (11.7-14.4)
[2018-01-25 05:10] LABS: ALBUMIN 3.1 g/dL (3.5-5.0); ALBUMIN/GLOBULIN RATIO 0.9 (0.8-2.0); ANION GAP 15.2 mmol/L (8-16); CALCIUM 8.9 mg/dL (8.4-10.2); CREATININE, SERUM 1.25 mg/dL (0.72-1.25); POTASSIUM 4.2 mmol/L (3.5-5.1)
[2018-01-25] MEDS: ACETAMINOPHEN 325 MG TAB PO PRN (08:45)
[2018-01-25] MEDS: RAMIPRIL 2.5 MG CAP PO SCH (08:45)
[2018-01-25] MEDS: FERROUS SULFATE 325 MG TAB PO SCH (08:45)
[2018-01-25] MEDS: POTASSIUM CHLORIDE 10MEQ EA PO SCH (08:45)
[2018-01-25] MEDS: CARVEDILOL 12.5 MG TAB PO SCH ×2 (08:45→17:07)
[2018-01-25] MEDS: FOLIC ACID 1 MG TAB PO SCH (08:45)
[2018-01-25] MEDS: PANTOPRAZOLE SOD 40 MG TABEC PO SCH ×2 (08:45→17:06)
[2018-01-25] MEDS: ATORVASTATIN 10 MG TAB PO SCH (21:00)
[2018-01-25] MEDS: AMLODIPINE BESYLATE 10 MG TAB PO SCH (21:01)
[2018-01-26] VITALS: BP 117/75
[2018-01-26 00:43] VITALS: BP_SYST 117; BP_SYST 134; BP_DIAS 70; BP_DIAS 75
[2018-01-26 04:00] VITALS: BP 130/68
[2018-01-26] MEDS: ACETAMINOPHEN 325 MG TAB PO PRN (04:24)
[2018-01-26 04:41] LABS: BASOPHILS % 0.5 % (0.0-1.0); EOSINOPHILS # (AUTO) 0.4 (0.0-0.4); HEMATOCRIT 33.4 % (38.2-49.6); HEMOGLOBIN 11.1 g/dL (14.0-18.0); LYMPHOCYTES # (AUTO) 1.1 (1.0-3.2); LYMPHOCYTES % 19.4 % (18.0-39.1); MEAN CORPUSCULAR HEMOGLOBIN 28.9 pg (28-32); MEAN CORPUSCULAR HGB CONC 33.2 g/dL (31-35); MONOCYTES # (AUTO) 0.7 (0.2-0.8); MONOCYTES % 12.5 % (4.4-11.3); NEUTROPHILS # (AUTO) 3.4 (2.1-6.9); NEUTROPHILS % 60.2 % (38.7-80.0); PLATELET COUNT 240 x10e3/uL (140-360); RED BLOOD COUNT 3.84 x10e6/uL (4.3-5.7); RED CELL DISTRIBUTION WIDTH 16.1 % (11.7-14.4)
[2018-01-26 05:02] LABS: ALBUMIN 3.1 g/dL (3.5-5.0); ALBUMIN/GLOBULIN RATIO 0.9 (0.8-2.0); ANION GAP 13.6 mmol/L (8-16); CALCIUM 8.6 mg/dL (8.4-10.2); CREATININE, SERUM 1.17 mg/dL (0.72-1.25); POTASSIUM 3.6 mmol/L (3.5-5.1)
[2018-01-26] MEDS: PANTOPRAZOLE SOD 40 MG TABEC PO SCH (07:30)
[2018-01-26 08:54] VITALS: BP 130/64
[2018-01-26] MEDS: CARVEDILOL 12.5 MG TAB PO SCH (09:00)
[2018-01-26] MEDS: FOLIC ACID 1 MG TAB PO SCH (09:00)
[2018-01-26] MEDS: POTASSIUM CHLORIDE 10MEQ EA PO SCH (09:00)
[2018-01-26] MEDS: FERROUS SULFATE 325 MG TAB PO SCH (09:00)
[2018-01-26] MEDS: RAMIPRIL 2.5 MG CAP PO SCH (09:00)
[2018-01-26 10:41] VITALS: BP 130/64
[2018-01-26 11:39] VITALS: BP 132/63
[2018-01-26] MEDS ORDERED: POTASSIUM 25 M25 MEQ PO (11:41)
[2018-01-26] MEDS ORDERED: PROPOFOL IV EMULSION 10 MG/ML 20 ML VIAL IV ONE (12:01)
--- NOTE | 2018-01-26 16:17 | Discharge Summary ---
ADDENDUM: He is an 82-year-old male patient admitted with GI bleed. Please refer to the previously dictated discharge summary on January 23. The patient had been admitted with massive GI bleed, lower GI, plus rectal blood. The patient had received multiple blood transfusions. The patient was supposed to be leaving this last Friday, 4 days ago, but the patient had another bout of bleeding and so the patient's discharge a held. The patient was given blood transfusion and platelets, 2 units of blood transfusion and platelets. Surgery and GI had reevaluated the patient and hematology was also consulted. The patient had an EGD that was done. EGD was negative for any bleeding, and that was again confirmed that the patient was having diverticular bleed. Bleeding scan was done which was negative for any visible bleeding. The patient had a platelet dysfunction and platelets were given. The patient was monitored for 3 days for any further bleeding. The patient had no further bleeding. Now, upon stabilization the patient will be discharged home and followed up as an outpatient. The patient was advised not to take any aspirin or Plavix. The patient is to follow up with GI and surgery as well as with me. KRISTA CLARK MD Job#: [id number]
--- OUTSIDE RECORDS SUMMARY | 2018-02-10 04:58 | XMS REPORT | Clinical Summary ---
Author Author [facility] Address Unknown Phone Unavailable Care Team Providers Care Faculty Instructor Name Role Phone Chapincito Figueredo MD PCP Allergies No Known Allergies Current Medications Prescription Sig. Disp. Refills Start End Date Status Date aspirin (ECOTRIN) 81 MG Take 81 mg by mouth Active enteric coated tablet daily. amLODIPine (NORVASC) 10 Take 10 mg by mouth Active mg tablet nightly. doxazosin (CARDURA) 4 MG Take 4 mg by mouth Active tablet nightly. pantoprazole (PROTONIX) Take 40 mg by mouth 2 Active 40 MG EC tablet (two) times a day. clopidogrel (PLAVIX) 75 Take 75 mg by mouth Active mg tablet daily. atorvastatin (LIPITOR) 10 Take 10 mg by mouth Active MG tablet nightly. pregabalin (LYRICA) 50 MG Take 50 mg by mouth Active capsule daily. apremilast (OTEZLA) 30 mg Take 1 tablet by mouth 2 Active tablet (two) times a day. ramipril (ALTACE) 1.25 MG Take 1 capsule (1.25 mg 30 capsule 11 09/23/19 09/23/19 Active capsule total) by mouth daily. 18 19 metoprolol tartrate Take 2 tablets (50 mg 60 tablet 0 10/17/19 10/17/19 Active (LOPRESSOR) 25 mg tablet total) by mouth 2 (two) 18 19 times a day. carvedilol (COREG) 25 MG Take 25 mg by mouth 2 09/23/19 Discontin tablet (two) times a day with 18 ued meals. lisinopril Take 40 mg by mouth every 09/23/19 Discontin (PRINIVIL,ZESTRIL) 40 mg evening. 18 ued tablet clonIDINE (CATAPRES) 0.1 Take 0.1 mg by mouth 3 09/23/19 Discontin MG tablet (three) times a day. 18 ued metoprolol tartrate Take 1 tablet (25 mg 60 tablet 11 09/23/19 10/17/19 Discontin (LOPRESSOR) 25 mg tablet total) by mouth 2 (two) 18 18 ued times a day. furosemide (LASIX) 20 mg Take 1 tablet (20 mg 30 tablet 11 09/24/19 10/17/19 Discontin tablet total) by mouth daily. 18 18 ued acetaminophen-codeine Take 1 tablet by mouth 30 tablet 0 09/23/19 10/23/19 (TYLENOL WITH CODEINE #3) every 6 (six) hours as 18 18 300-30 mg per tablet needed for moderate pain for up to 30 days. 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 Dai 09/26/2017 Orders Only Cardiovascular Sary Foreman RN Coronary artery disease involving [place] coronary artery of [place] heart, angina presence unspecified (Primary Dx) 09/22/2017 Patient Quality Bev Dumont RN Outreach 09/15/2017 Procedure Pass Cardiothoracic Surgery 09/15/2017 Surgery Cardiothoracic Surgery Rodolfo Gutierrez Cabg With Endoscopic Vein MD Jonah [employer]vest[employer], ROCHA to LAD, SVG to OM 09/14/2017 Anesthesia Cardiothoracic Surgery Sunita Cassidy MD Event 09/13/2017 Hospital Cardiology Mauricio Dai MD Coronary artery disease - Encounter of [place] artery of 09/22/2017 [place] heart with stable angina pectoris (Primary Dx); Coronary artery disease involving [place] coronary artery of [place] heart with angina pectoris; Pre-procedure lab exam 09/13/2017 Procedure Pass Procedural Cardiology 09/13/2017 Surgery Procedural Cardiology Mauricio Dai MD Cv left heart cath w lv gram cors [41379 (CPT)] 09/11/2017 Orders Only Cardiology Mauricio Dai MD 08/25/2017 Orders Only Cardiology Mauricio Dai MD Coronary artery disease involving [place] coronary artery of [place] heart with angina pectoris (Primary Dx); Pre-procedure lab exam 08/19/2017 Telephone Cardiovascular Ellie Gipson 08/13/2017 [facility] Procedural Cardiology Mauricio Dai MD Coronary artery disease Encounter involving [place] coronary artery of [place] heart with angina pectoris 08/13/2017 Procedure Pass Procedural Cardiology 08/08/2017 Orders Only Cardiology Mauricio Dai MD Coronary artery disease involving [place] coronary artery of [place] heart with angina pectoris (Primary Dx); Pre-procedural laboratory examination 08/07/2017 Office Visit Cardiovascular Rodolfo Gutierrez Coronary artery disease MD [place]ah of [place] artery of [place] heart with stable angina pectoris (Primary Dx); Essential hypertension 08/07/2017 [facility] Rodolfo Gutierrez Coronary artery disease Encounter MD Jonah with angina pectoris, unspecified vessel or lesion type, unspecified whether [place] or transplanted heart 08/07/2017 [facility] Josselin Rodolfo Coronary artery disease Encounter MD Jonah involving [place] coronary artery of [place] heart, angina presence unspecified; Preop pulmonary/respiratory exam 08/07/2017 [facility] Josselin Rodolfo Coronary artery disease Encounter MD Jonah involving [place] coronary artery of [place] heart, angina presence unspecified; Preop pulmonary/respiratory exam 07/30/2017 Documentation Cardiovascular Loren An, RN Follow-up on OV with Dr. Gutierrez 07/30/2017 Orders Only Cardiovascular Felicia Varma MA Coronary artery disease with angina pectoris, unspecified vessel or lesion type, unspecified whether [place] or transplanted heart (Primary Dx) 07/30/2017 Orders Only Cardiovascular Sary Foreman RN 07/29/2017 Documentation Cardiovascular Loren An RN New Referral for Dr. Gutierrez from Dr. [place]inc[place] Figueredo Other 07/29/2017 Orders Only Cardiovascular Sary Foreman RN Coronary artery disease involving [place] coronary artery of [place] heart, angina presence unspecified (Primary Dx); Preop pulmonary/respiratory exam after 01/14/2017 Social History Tobacco Use Types Packs/Day Years Used Date Never Smoker Smokeless Tobacco: Never Used Alcohol Use Drinks/Week oz/Week Comments No Sex Assigned at Date Recorded Not on file Last Filed Vital Signs Vital Sign Reading Time Taken Blood Pressure 172/81 10/16/2017 1:10 PM CDT Pulse 87 10/16/2017 1:10 PM CDT Temperature 36.9 C (98.4 F) 10/16/2017 1:10 PM CDT Respiratory Rate 17 10/16/2017 1:10 PM CDT Oxygen Saturation 94% 09/22/2017 12:38 PM CDT Inhaled Oxygen - - Concentration Weight 80.7 kg (178 lb) 10/16/2017 1:10 PM CDT Height 172.7 cm (5' 8") 10/16/2017 1:10 PM CDT Body Mass Index 27.06 10/16/2017 1:10 PM CDT Plan of Treatment Health Maintenance Due Date Last Done Comments SHINGRIX VACCINE (#1) 1986 ZOSTER VACCINE 1996 PNEUMOCOCCAL 2001 POLYSACCHARIDE VACCINE AGE 65 AND OVER PNEUMOCOCCAL-13 2001 INFLUENZA VACCINE 11/26/2017 Implants Implanted Type Area Night Worker Device Expiration Model / Identifier Date Serial / Lot Lead Pace Mycrdl Bipolar Coax Tmpry Cardiac N/A: N/A [employer]TR[employer]IC [facility] - 09/25/2017 [id number] / Streamline - [id number] Pacing CARDIAC RYHTYM / Implanted: Qty: 1 on 09/15/2017 by Leads or MGMT Rodolfo Gutierrez MD Electrodes or Accessorie s Clip Ligtng Alck Hemoclip Plus W/ Medical N/A: N/A WECK CLOSURE 12/09/2021 [id number] / Tape Ti Sm Strngpnt - [id number] Clips for SYSTEMS / Implanted: Qty: 2 on 09/15/2017 by Internal Rodolfo Gutierrez MD Use Clip Ligtng Weck Hemoclip Plus W/ Medical N/A: N/A WECK CLOSURE 02/04/2022 [id number] / Tape Ti Sm Strngpnt - [id number] Clips for SYSTEMS / Implanted: Qty: 1 on 09/15/2017 by Internal Rodolfo Gutierrez MD Use Clip Ligtng Weck Hemoclip Plus W/ Medical N/A: N/A TELEFLEX 05/11/2020 [id number] / Tape Ti Med - [id number] Clips for MEDICAL / Implanted: Qty: 2 on 09/15/2017 by Internal Rodolfo Gutierrez MD Use Clip Ligtng Weck Hemoclip Plus W/ Medical N/A: N/A WECK CLOSURE 03/10/2022 [id number] / Tape Ti Med Lg - [id number] Clips for SYSTEMS / Implanted: Qty: 1 on 09/15/2017 by Internal Rodolfo Gutierrez MD Use Clip Ligtng Weck Hemoclip Plus W/ Medical N/A: N/A WECK CLOSURE 02/04/2022 [id number] / Tape Ti Sm Strngpnt - [id number] Clips for SYSTEMS / Implanted: Qty: 1 on 09/15/2017 by Internal Rodolfo Gutierrez MD Use Material Bone Hmsts Wtrsolbl 2.5g Orthopedic N/A: N/A CERA MED 09/25/2021 [id number] / Ostene - [id number] Trauma / Implanted: Qty: 1 on 09/15/2017 by Implants [id number] Rodolfo Gutierrez MD [place] Perph Vasclr Ptfe 1.2x10cm Vascular N/A: N/A BARD PERIPHERAL 02/22/2022 [id number] / 1.65mm - [id number] Graft VASCULAR / Implanted: Qty: 1 on 09/15/2017 by [id number] Rodolfo Gutierrez MD Procedures Procedure Name Priority Date/Time Associated Diagnosis Comments XR CHEST 2 VW Routine 10/16/2017 Coronary artery disease Results for this 2:54 PM CDT involving [place] coronary procedure are in the artery of [place] heart, results section. angina presence unspecified ECG 12-LEAD Routine 09/22/2017 Results for this 2:44 PM CDT procedure are in the results section. HC COMPLETE BLD COUNT Routine 09/22/2017 Results for this W/AUTO DIFF 11:30 AM CDT procedure are in the results section. ZZESTIMATED GFR Routine 09/22/2017 Results for this 4:00 AM CDT procedure are in the results section. MAGNESIUM LEVEL Routine 09/22/2017 Results for this 4:00 AM CDT procedure are in the results section. BASIC METABOLIC PANEL Routine 09/22/2017 Results for this 4:00 AM CDT procedure are in the results section. POC GLUCOSE Routine 09/21/2017 Results for this 11:04 AM CDT procedure are in the results section. POC GLUCOSE Routine 09/21/2017 Results for this 6:53 AM CDT procedure are in the results section. ZZESTIMATED GFR Routine 09/21/2017 Results for this 4:00 AM CDT procedure are in the results section. HC COMPLETE BLD COUNT Routine 09/21/2017 Results for this W/AUTO DIFF 4:00 AM CDT procedure are in the results section. BASIC METABOLIC PANEL Routine 09/21/2017 Results for this 4:00 AM CDT procedure are in the results section. POC GLUCOSE Routine 09/20/2017 Results for this 9:28 PM CDT procedure are in the results section. POC GLUCOSE Routine 09/20/2017 Results for this 6:01 PM CDT procedure are in the results section. POC GLUCOSE Routine 09/20/2017 Results for this 11:08 AM CDT procedure are in the results section. HC COMPLETE BLD COUNT STAT 09/20/2017 Results for this W/AUTO DIFF 10:00 AM CDT procedure are in the results section. ZZESTIMATED GFR STAT 09/20/2017 Results for this 8:57 AM CDT procedure are in the results section. BASIC METABOLIC PANEL STAT 09/20/2017 Results for this 8:57 AM CDT procedure are in the results section. POC GLUCOSE Routine 09/20/2017 Results for this 7:20 AM CDT procedure are in the results section. POC GLUCOSE Routine 09/19/2017 Results for this 9:35 PM CDT procedure are in the results section. POC GLUCOSE Routine 09/19/2017 Results for this 5:33 PM CDT procedure are in the results section. POC GLUCOSE Routine 09/19/2017 Results for this 11:29 AM CDT procedure are in the results section. POC GLUCOSE Routine 09/19/2017 Results for this 7:51 AM CDT procedure are in the results section. ZZESTIMATED GFR Routine 09/19/2017 Results for this 4:30 AM CDT procedure are in the results section. MAGNESIUM LEVEL Routine 09/19/2017 Results for this 4:30 AM CDT procedure are in the results section. BASIC METABOLIC PANEL Routine 09/19/2017 Results for this 4:30 AM CDT procedure are in the results section. HC COMPLETE BLD COUNT Routine 09/19/2017 Results for this W/AUTO DIFF 4:30 AM CDT procedure are in the results section. POC GLUCOSE Routine 09/18/2017 Results for this 9:33 PM CDT procedure are in the results section. POC GLUCOSE Routine 09/18/2017 Results for this 4:55 PM CDT procedure are in the results section. ECHOCARDIOGRAM 2D Routine 09/18/2017 Results for this COMPLETE W MMODE SPECTRAL 3:16 PM CDT procedure are in the COLOR DOPPLER (39288) results section. POC GLUCOSE Routine 09/18/2017 Results for this 12:19 PM CDT procedure are in the results section. POC GLUCOSE Routine 09/18/2017 Results for this 7:16 AM CDT procedure are in the results section. HC COMPLETE BLD COUNT Routine 09/18/2017 Results for this W/AUTO DIFF 6:03 AM CDT procedure are in the results section. POC GLUCOSE Routine 09/18/2017 Results for this 5:26 AM CDT procedure are in the results section. ZZESTIMATED GFR Routine 09/18/2017 Results for this 12:00 AM CDT procedure are in the results section. PHOSPHORUS LEVEL Routine 09/18/2017 Results for this 12:00 AM CDT procedure are in the results section. IONIZED CALCIUM Routine 09/18/2017 Results for this 12:00 AM CDT procedure are in the results section. MAGNESIUM LEVEL Routine 09/18/2017 Results for this 12:00 AM CDT procedure are in the results section. BASIC METABOLIC PANEL Routine 09/18/2017 Results for this 12:00 AM CDT procedure are in the results section. POC GLUCOSE Routine 09/17/2017 Results for this 9:01 PM CDT procedure are in the results section. POC GLUCOSE Routine 09/17/2017 Results for this 5:21 PM CDT procedure are in the results section. POC GLUCOSE Routine 09/17/2017 Results for this 12:01 PM CDT procedure are in the results section. POC GLUCOSE Routine 09/17/2017 Results for this 7:59 AM CDT procedure are in the results section. XR CHEST 1 VW PORTABLE Routine 09/17/2017 Results for this 4:59 AM CDT procedure are in the results section. ECG 12-LEAD Routine 09/17/2017 Results for this 4:29 AM CDT procedure are in the results section. POC GLUCOSE Routine 09/17/2017 Results for this 4:17 AM CDT procedure are in the results section. ZZESTIMATED GFR Routine 09/17/2017 Results for this 2:54 AM CDT procedure are in the results section. PHOSPHORUS LEVEL Routine 09/17/2017 Results for this 2:54 AM CDT procedure are in the results section. MAGNESIUM LEVEL Routine 09/17/2017 Results for this 2:54 AM CDT procedure are in the results section. IONIZED CALCIUM Routine 09/17/2017 Results for this 2:54 AM CDT procedure are in the results section. BASIC METABOLIC PANEL Routine 09/17/2017 Results for this 2:54 AM CDT procedure are in the results section. PROTHROMBIN TIME WITH INR Routine 09/17/2017 Results for this 2:15 AM CDT procedure are in the results section. PARTIAL THROMBOPLASTIN Routine 09/17/2017 Results for this TIME (PTT) 2:15 AM CDT procedure are in the results section. CBC HEMOGRAM Routine 09/17/2017 Results for this 2:15 AM CDT procedure are in the results section. POC GLUCOSE Routine 09/17/2017 Results for this 12:08 AM CDT procedure are in the results section. POC GLUCOSE Routine 09/16/2017 Results for this 7:51 PM CDT procedure are in the results section. POC GLUCOSE Routine 09/16/2017 Results for this 3:48 PM CDT procedure are in the results section. XR CHEST 1 VW PORTABLE Routine 09/16/2017 Results for this 3:14 PM CDT procedure are in the results section. POC GLUCOSE Routine 09/16/2017 Results for this 11:55 AM CDT procedure are in the results section. POC GLUCOSE Routine 09/16/2017 Results for this 7:35 AM CDT procedure are in the results section. XR CHEST 1 VW PORTABLE Routine 09/16/2017 Results for this 4:33 AM CDT procedure are in the results section. POC GLUCOSE Routine 09/16/2017 Results for this 4:14 AM CDT procedure are in the results section. ECG 12-LEAD Routine 09/16/2017 Results for this 4:12 AM CDT procedure are in the results section. ZZESTIMATED GFR Routine 09/16/2017 Results for this 2:12 AM CDT procedure are in the results section. PROTHROMBIN TIME WITH INR Routine 09/16/2017 Results for this 2:12 AM CDT procedure are in the results section. PHOSPHORUS LEVEL Routine 09/16/2017 Results for this 2:12 AM CDT procedure are in the results section. PARTIAL THROMBOPLASTIN Routine 09/16/2017 Results for this TIME (PTT) 2:12 AM CDT procedure are in the results section. MAGNESIUM LEVEL Routine 09/16/2017 Results for this 2:12 AM CDT procedure are in the results section. IONIZED CALCIUM Routine 09/16/2017 Results for this 2:12 AM CDT procedure are in the results section. CBC HEMOGRAM Routine 09/16/2017 Results for this 2:12 AM CDT procedure are in the results section. BASIC METABOLIC PANEL Routine 09/16/2017 Results for this 2:12 AM CDT procedure are in the results section. POC GLUCOSE Routine 09/16/2017 Results for this 12:04 AM CDT procedure are in the results section. PARTIAL THROMBOPLASTIN STAT 09/15/2017 Results for this TIME (PTT) 10:15 PM CDT procedure are in the results section. PROTHROMBIN TIME WITH INR STAT 09/15/2017 Results for this 10:15 PM CDT procedure are in the results section. FIBRINOGEN STAT 09/15/2017 Results for this 10:15 PM CDT procedure are in the results section. CBC HEMOGRAM STAT 09/15/2017 Results for this 10:15 PM CDT procedure are in the results section. POC GLUCOSE Routine 09/15/2017 Results for this 10:14 PM CDT procedure are in the results section. POC GLUCOSE Routine 09/15/2017 Results for this 8:09 PM CDT procedure are in the results section. POC GLUCOSE Routine 09/15/2017 Results for this 7:20 PM CDT procedure are in the results section. ECG 12-LEAD Routine 09/15/2017 Results for this 7:09 PM CDT procedure are in the results section. XR CHEST 1 VW PORTABLE Routine 09/15/2017 Results for this 6:45 PM CDT procedure are in the results section. ZZESTIMATED GFR Routine 09/15/2017 Results for this 6:38 PM CDT procedure are in the results section. IONIZED CALCIUM, ARTERIAL Routine 09/15/2017 Results for this 6:38 PM CDT procedure are in the results section. FIBRINOGEN Routine 09/15/2017 Results for this 6:38 PM CDT procedure are in the results section. ARTERIAL BLOOD GAS Routine 09/15/2017 Results for this 6:38 PM CDT procedure are in the results section. PARTIAL THROMBOPLASTIN Routine 09/15/2017 Results for this TIME (PTT) 6:38 PM CDT procedure are in the results section. PROTHROMBIN TIME WITH INR Routine 09/15/2017 Results for this 6:38 PM CDT procedure are in the results section. PHOSPHORUS LEVEL Routine 09/15/2017 Results for this 6:38 PM CDT procedure are in the results section. MAGNESIUM LEVEL Routine 09/15/2017 Results for this 6:38 PM CDT procedure are in the results section. HC COMPLETE BLD COUNT Routine 09/15/2017 Results for this W/AUTO DIFF 6:38 PM CDT procedure are in the results section. BASIC METABOLIC PANEL Routine 09/15/2017 Results for this 6:38 PM CDT procedure are in the results section. HEMOGLOBIN & HEMATOCRIT STAT 09/15/2017 Results for this 6:05 PM CDT procedure are in the results section. PROTHROMBIN TIME WITH INR STAT 09/15/2017 Results for this 6:05 PM CDT procedure are in the results section. FIBRINOGEN STAT 09/15/2017 Results for this 6:05 PM CDT procedure are in the results section. PLATELET COUNT STAT 09/15/2017 Results for this 6:05 PM CDT procedure are in the results section. GLUCOSE LEVEL, SYRINGE STAT 09/15/2017 Results for this 5:42 PM CDT procedure are in the results section. IONIZED CALCIUM, ARTERIAL STAT 09/15/2017 Results for this 5:42 PM CDT procedure are in the results section. HEMOGLOBIN, SYRINGE STAT 09/15/2017 Results for this 5:42 PM CDT procedure are in the results section. SODIUM LEVEL, SYRINGE STAT 09/15/2017 Results for this 5:42 PM CDT procedure are in the results section. POTASSIUM, SYRINGE STAT 09/15/2017 Results for this 5:42 PM CDT procedure are in the results section. ARTERIAL BLOOD GAS STAT 09/15/2017 Results for this 5:42 PM CDT procedure are in the results section. TRANSFUSE RED BLOOD CELLS Routine 09/15/2017 5:39 PM CDT TRANSFUSE RED BLOOD CELLS Routine 09/15/2017 5:25 PM CDT FIBRINOGEN STAT 09/15/2017 Results for this 4:52 PM CDT procedure are in the results section. HEMATOCRIT STAT 09/15/2017 Results for this 4:52 PM CDT procedure are in the results section. PLATELET COUNT STAT 09/15/2017 Results for this 4:52 PM CDT procedure are in the results section. PROTHROMBIN TIME WITH INR STAT 09/15/2017 Results for this 4:52 PM CDT procedure are in the results section. HEMOGLOBIN, SYRINGE STAT 09/15/2017 Results for this 4:52 PM CDT procedure are in the results section. GLUCOSE LEVEL, SYRINGE STAT 09/15/2017 Results for this 4:52 PM CDT procedure are in the results section. IONIZED CALCIUM, ARTERIAL STAT 09/15/2017 Results for this 4:52 PM CDT procedure are in the results section. SODIUM LEVEL, SYRINGE STAT 09/15/2017 Results for this 4:52 PM CDT procedure are in the results section. POTASSIUM, SYRINGE STAT 09/15/2017 Results for this 4:52 PM CDT procedure are in the results section. ARTERIAL BLOOD GAS STAT 09/15/2017 Results for this 4:52 PM CDT procedure are in the results section. TRANSFUSE RED BLOOD CELLS Routine 09/15/2017 4:30 PM CDT TRANSFUSE FRESH FROZEN Routine 09/15/2017 PLASMA 4:21 PM CDT TRANSFUSE FRESH FROZEN Routine 09/15/2017 PLASMA 4:21 PM CDT TRANSFUSE RED BLOOD CELLS Routine 09/15/2017 4:03 PM CDT PLATELET COUNT STAT 09/15/2017 Results for this 3:23 PM CDT procedure are in the results section. FIBRINOGEN STAT 09/15/2017 Results for this 3:23 PM CDT procedure are in the results section. PROTHROMBIN TIME WITH INR STAT 09/15/2017 Results for this 3:23 PM CDT procedure are in the results section. IONIZED CALCIUM, ARTERIAL STAT 09/15/2017 Results for this 3:23 PM CDT procedure are in the results section. GLUCOSE LEVEL, SYRINGE STAT 09/15/2017 Results for this 3:23 PM CDT procedure are in the results section. POTASSIUM, SYRINGE STAT 09/15/2017 Results for this 3:23 PM CDT procedure are in the results section. HEMOGLOBIN, SYRINGE STAT 09/15/2017 Results for this 3:23 PM CDT procedure are in the results section. SODIUM LEVEL, SYRINGE STAT 09/15/2017 Results for this 3:23 PM CDT procedure are in the results section. ARTERIAL BLOOD GAS STAT 09/15/2017 Results for this 3:23 PM CDT procedure are in the results section. TRANSFUSE FRESH FROZEN Routine 09/15/2017 PLASMA 3:00 PM CDT TRANSFUSE PLATELETS Routine 09/15/2017 2:55 PM CDT TRANSFUSE FRESH FROZEN Routine 09/15/2017 PLASMA 2:51 PM CDT TRANSFUSE PLATELETS Routine 09/15/2017 2:47 PM CDT HEMATOCRIT STAT 09/15/2017 Results for this 2:42 PM CDT procedure are in the results section. PROTHROMBIN TIME WITH INR STAT 09/15/2017 Results for this 2:42 PM CDT procedure are in the results section. FIBRINOGEN STAT 09/15/2017 Results for this 2:42 PM CDT procedure are in the results section. GLUCOSE LEVEL, SYRINGE STAT 09/15/2017 Results for this 2:42 PM CDT procedure are in the results section. PLATELET COUNT STAT 09/15/2017 Results for this 2:42 PM CDT procedure are in the results section. IONIZED CALCIUM, ARTERIAL STAT 09/15/2017 Results for this 2:42 PM CDT procedure are in the results section. HEMOGLOBIN, SYRINGE STAT 09/15/2017 Results for this 2:42 PM CDT procedure are in the results section. POTASSIUM, SYRINGE STAT 09/15/2017 Results for this 2:42 PM CDT procedure are in the results section. SODIUM LEVEL, SYRINGE STAT 09/15/2017 Results for this 2:42 PM CDT procedure are in the results section. ARTERIAL BLOOD GAS STAT 09/15/2017 Results for this 2:42 PM CDT procedure are in the results section. TRANSFUSE RED BLOOD CELLS Routine 09/15/2017 2:24 PM CDT HEMATOCRIT STAT 09/15/2017 Results for this 1:52 PM CDT procedure are in the results section. PROTHROMBIN TIME WITH INR STAT 09/15/2017 Results for this 1:52 PM CDT procedure are in the results section. FIBRINOGEN STAT 09/15/2017 Results for this 1:52 PM CDT procedure are in the results section. PLATELET COUNT STAT 09/15/2017 Results for this 1:52 PM CDT procedure are in the results section. IONIZED CALCIUM, ARTERIAL STAT 09/15/2017 Results for this 1:52 PM CDT procedure are in the results section. HEMOGLOBIN, SYRINGE STAT 09/15/2017 Results for this 1:52 PM CDT procedure are in the results section. GLUCOSE LEVEL, SYRINGE STAT 09/15/2017 Results for this 1:52 PM CDT procedure are in the results section. POTASSIUM, SYRINGE STAT 09/15/2017 Results for this 1:52 PM CDT procedure are in the results section. SODIUM LEVEL, SYRINGE STAT 09/15/2017 Results for this 1:52 PM CDT procedure are in the results section. ARTERIAL BLOOD GAS STAT 09/15/2017 Results for this 1:52 PM CDT procedure are in the results section. TRANSFUSE RED BLOOD CELLS Routine 09/15/2017 1:50 PM CDT TRANSFUSE PLATELETS Routine 09/15/2017 1:25 PM CDT TRANSFUSE PLATELETS Routine 09/15/2017 1:24 PM CDT TRANSFUSE RED BLOOD CELLS Routine 09/15/2017 1:20 PM CDT GLUCOSE LEVEL, SYRINGE STAT 09/15/2017 Results for this 1:16 PM CDT procedure are in the results section. IONIZED CALCIUM, ARTERIAL STAT 09/15/2017 Results for this 1:16 PM CDT procedure are in the results section. HEMOGLOBIN, SYRINGE STAT 09/15/2017 Results for this 1:16 PM CDT procedure are in the results section. POTASSIUM, SYRINGE STAT 09/15/2017 Results for this 1:16 PM CDT procedure are in the results section. SODIUM LEVEL, SYRINGE STAT 09/15/2017 Results for this 1:16 PM CDT procedure are in the results section. ARTERIAL BLOOD GAS, STAT 09/15/2017 Results for this CORRECTED 1:16 PM CDT procedure are in the results section. GLUCOSE LEVEL, SYRINGE STAT 09/15/2017 Results for this 12:54 PM CDT procedure are in the results section. IONIZED CALCIUM, ARTERIAL STAT 09/15/2017 Results for this 12:54 PM CDT procedure are in the results section. HEMOGLOBIN, SYRINGE STAT 09/15/2017 Results for this 12:54 PM CDT procedure are in the results section. SODIUM LEVEL, SYRINGE STAT 09/15/2017 Results for this 12:54 PM CDT procedure are in the results section. POTASSIUM, SYRINGE STAT 09/15/2017 Results for this 12:54 PM CDT procedure are in the results section. ARTERIAL BLOOD GAS STAT 09/15/2017 Results for this 12:54 PM CDT procedure are in the results section. FIBRINOGEN STAT 09/15/2017 Results for this 12:54 PM CDT procedure are in the results section. PLATELET COUNT STAT 09/15/2017 Results for this 12:54 PM CDT procedure are in the results section. PROTHROMBIN TIME WITH INR STAT 09/15/2017 Results for this 12:54 PM CDT procedure are in the results section. HEMATOCRIT STAT 09/15/2017 Results for this 12:54 PM CDT procedure are in the results section. GLUCOSE LEVEL, SYRINGE STAT 09/15/2017 Results for this 12:42 PM CDT procedure are in the results section. IONIZED CALCIUM, ARTERIAL STAT 09/15/2017 Results for this 12:42 PM CDT procedure are in the results section. POTASSIUM, SYRINGE STAT 09/15/2017 Results for this 12:42 PM CDT procedure are in the results section. HEMOGLOBIN, SYRINGE STAT 09/15/2017 Results for this 12:42 PM CDT procedure are in the results section. SODIUM LEVEL, SYRINGE STAT 09/15/2017 Results for this 12:42 PM CDT procedure are in the results section. ARTERIAL BLOOD GAS, STAT 09/15/2017 Results for this CORRECTED 12:42 PM CDT procedure are in the results section. TRANSFUSE RED BLOOD CELLS Routine 09/15/2017 12:21 PM CDT SODIUM LEVEL, SYRINGE STAT 09/15/2017 Results for this 12:06 PM CDT procedure are in the results section. ARTERIAL BLOOD GAS, STAT 09/15/2017 Results for this CORRECTED 12:06 PM CDT procedure are in the results section. POTASSIUM, SYRINGE STAT 09/15/2017 Results for this 12:06 PM CDT procedure are in the results section. HEMOGLOBIN, SYRINGE STAT 09/15/2017 Results for this 12:06 PM CDT procedure are in the results section. IONIZED CALCIUM, ARTERIAL STAT 09/15/2017 Results for this 12:06 PM CDT procedure are in the results section. GLUCOSE LEVEL, SYRINGE STAT 09/15/2017 Results for this 12:06 PM CDT procedure are in the results section. GLUCOSE LEVEL, SYRINGE STAT 09/15/2017 Results for this 11:44 AM CDT procedure are in the results section. IONIZED CALCIUM, ARTERIAL STAT 09/15/2017 Results for this 11:44 AM CDT procedure are in the results section. HEMOGLOBIN, SYRINGE STAT 09/15/2017 Results for this 11:44 AM CDT procedure are in the results section. POTASSIUM, SYRINGE STAT 09/15/2017 Results for this 11:44 AM CDT procedure are in the results section. SODIUM LEVEL, SYRINGE STAT 09/15/2017 Results for this 11:44 AM CDT procedure are in the results section. ARTERIAL BLOOD GAS, STAT 09/15/2017 Results for this CORRECTED 11:44 AM CDT procedure are in the results section. ANESTHESIA ÓSCAR Routine 09/15/2017 9:42 AM CDT Procedure Note - Asha Lemons MD - 09/15/2017 9:42 AM CDT Procedure Performed: ÓSCAR Start Time: End Time: Preanesth esia Checklist: Patient identified , IV assessed, risks and benefits discussed, monitors and equipment assessed, procedure being performed at surgeon's request, anesthesia consent obtained. General Procedure Informatio n Diagnostic Indication s for Echo: assessment of surgical repair and hemodynami c monitoring Physician Requesting Echo: RODOLFO OG Location performed: OR Intubated Bite block placed Heart visualized Probe Insertion: Easy Probe Type: Multiplane Modalities : Color flow mapping, continuous wave Doppler and pulse wave Doppler Echocardi ographic and Doppler Measuremen ts Ventricle s Right Ventricle: Cavity size normal. Thrombus not present. Global function normal. Left Ventricle: Cavity size normal. Thrombus not present. Global Function normal. Ejection Fraction 60%. Valves Aortic Valve: Annulus normal. Stenosis not present. Regurgitat ion +1. Leaflets thickened. Leaflet motions normal. Mitral Valve: Annulus normal. Stenosis not present. Regurgitat ion +1. Leaflets normal. Leaflet motions normal. Tricuspid Valve: Annulus normal. Stenosis not present. Regurgitat ion absent. Leaflets normal. Leaflet motions normal. Pulmonic Valve: Annulus normal. Stenosis not present. Regurgitat ion absent. Aorta Ascending Aorta: Size normal. Plaque thickness less than 3 mm. Mobile plaque not present. Aortic Arch: Size normal. Plaque thickness less than 3 mm. Mobile plaque not present. Descending Aorta: Size normal. Plaque thickness less than 3 mm. Mobile plaque not present. Atria Right Atrium: Size normal. Thrombus not present. Tumor not present. Device not present. Left Atrium: Size normal. Thrombus not present. Tumor not present. Device not present. Left atrial appendage normal. Septa Atrial Septum: Intra-atri al septal morphology normal. Ventricul ar Septum: Intra-vent ricular septum morphology normal. Other Findings Pericardiu m: normal Pleural Effusion: none Pulmonary Arteries: normal Pulmonary Venous Flow: normal Anesthesi a Informatio n Performed Personally Anesthesio logist: SUNITA VASQUEZ Echocardio gram Comments: S/P CABX2: Good iventricul ar fxn, no new rwma, lvef: 60% Valves: no change from preop Postop ÓSCAR: LV normal size and function, no rwma, EF>60%. RV normal size and function. RA/LA/ERMELINDA normal size and function, no thrombus visualized . No change in valves per review of preop images and per report. Ao no aneurysm or dissection in asc, arch, desc, thick non mobile plaque in distal arch/prox descending . Small (7mm) effusion about RV, released partially occlusive clot from med chest tube with smaller effusion afterwards . No l pl effusion (atelectes is). No heme on probe, lub ogt placed, no heme. Findings d/w surgeon. Asha Lemons MD PA CATHETER Routine 09/15/2017 Results for this 8:39 AM CDT procedure are in the results section. CENTRAL LINE Routine 09/15/2017 Results for this 8:37 AM CDT procedure are in the results section. ARTERIAL LINE Routine 09/15/2017 Results for this 8:34 AM CDT procedure are in the results section. MA AN ELECTIVE Routine 09/15/2017 Results for this ENDOTRACHEAL AIRWAY 8:31 AM CDT procedure are in the results section. GLUCOSE LEVEL, SYRINGE STAT 09/15/2017 Results for this 8:28 AM CDT procedure are in the results section. HEMOGLOBIN, SYRINGE STAT 09/15/2017 Results for this 8:28 AM CDT procedure are in the results section. IONIZED CALCIUM, ARTERIAL STAT 09/15/2017 Results for this 8:28 AM CDT procedure are in the results section. SODIUM LEVEL, SYRINGE STAT 09/15/2017 Results for this 8:28 AM CDT procedure are in the results section. POTASSIUM, SYRINGE STAT 09/15/2017 Results for this 8:28 AM CDT procedure are in the results section. ARTERIAL BLOOD GAS, STAT 09/15/2017 Results for this CORRECTED 8:28 AM CDT procedure are in the results section. ZZESTIMATED GFR Routine 09/15/2017 Results for this 12:05 AM CDT procedure are in the results section. MAGNESIUM LEVEL Routine 09/15/2017 Results for this 12:05 AM CDT procedure are in the results section. BASIC METABOLIC PANEL Routine 09/15/2017 Results for this 12:05 AM CDT procedure are in the results section. XR CHEST 1 VW PORTABLE STAT 09/14/2017 Results for this 9:00 PM CDT procedure are in the results section. ECHOCARDIOGRAM 2D Routine 09/14/2017 Results for this COMPLETE W MMODE SPECTRAL 10:12 AM CDT procedure are in the COLOR DOPPLER ([id number]) results section. ECG 12-LEAD STAT 09/14/2017 Results for this 6:36 AM CDT procedure are in the results section. PREPARE FRESH FROZEN Routine 09/14/2017 Results for this PLASMA 5:45 AM CDT procedure are in the results section. PREPARE PLATELET PHERESIS Routine 09/14/2017 Results for this 5:45 AM CDT procedure are in the results section. PREPARE RBC Routine 09/14/2017 Results for this 5:45 AM CDT procedure are in the results section. TYPE AND SCREEN Routine 09/14/2017 Results for this 5:45 AM CDT procedure are in the results section. ZZESTIMATED GFR Routine 09/14/2017 Results for this 5:30 AM CDT procedure are in the results section. HEMOGLOBIN A1C Routine 09/14/2017 Results for this 5:30 AM CDT procedure are in the results section. LIPID PANEL Routine 09/14/2017 Results for this 5:30 AM CDT procedure are in the results section. HC COMPLETE BLD COUNT Routine 09/14/2017 Results for this W/AUTO DIFF 5:30 AM CDT procedure are in the results section. BASIC METABOLIC PANEL Routine 09/14/2017 Results for this 5:30 AM CDT procedure are in the results section. US CAROTID DUPLEX Routine 09/14/2017 Results for this BILATERAL 12:47 AM CDT procedure are in the results section. URINALYSIS SCREEN AND Routine 09/13/2017 Results for this MICROSCOPY, WITH REFLEX 2:56 PM CDT procedure are in the TO CULTURE results section. URINE CULTURE Routine 09/13/2017 Results for this 2:56 PM CDT procedure are in the results section. ECG PRE/POST OP Routine 09/13/2017 Results for this 1:49 PM CDT procedure are in the results section. CV LEFT HEART CATH LV Routine 09/13/2017 Pre-procedure lab exam Results for this GRAM WITH CORS 9:42 AM CDT Coronary artery disease procedure are in the involving [place] coronary results section. artery of [place] heart with angina pectoris CBC WITH PLATELET AND Routine 09/11/2017 Results for this DIFFERENTIAL 9:22 AM CDT procedure are in the results section. PROTHROMBIN TIME WITH INR Routine 09/11/2017 Results for this 9:22 AM CDT procedure are in the results section. COMPREHENSIVE METABOLIC Routine 09/11/2017 Results for this PANEL 9:22 AM CDT procedure are in the results section. ECG 12-LEAD STAT 08/13/2017 Results for this 2:07 PM CDT procedure are in the results section. PROTHROMBIN TIME WITH INR Routine 08/09/2017 Coronary artery disease Results for this 8:10 AM CDT involving [place] coronary procedure are in the artery of [place] heart results section. with angina pectoris Pre-procedural laboratory examination COMPREHENSIVE METABOLIC Routine 08/09/2017 Coronary artery disease Results for this PANEL 8:10 AM CDT involving [place] coronary procedure are in the artery of [place] heart results section. with angina pectoris Pre-procedural laboratory examination CBC WITH PLATELET AND Routine 08/09/2017 Coronary artery disease Results for this DIFFERENTIAL 8:10 AM CDT involving [place] coronary procedure are in the artery of [place] heart results section. with angina pectoris Pre-procedural laboratory examination ECHOCARDIOGRAM 2D Routine 08/07/2017 Results for this COMPLETE W MMODE SPECTRAL 9:51 AM CDT procedure are in the COLOR DOPPLER ([id number]) results section. after 01/14/2017 Results * XR Chest 2 Vw (10/16/2017 2:54 PM) Narrative [facility] CLINICAL INDICATION:I25.10 Atherosclerotic heart disease of [place] coronary artery without angina pectoris, Post-op surgery COMPARISON:09/17/2017 IMPRESSION: The heart is mildly enlarged with stable changes poststernotomy/CABG. Small left pleural effusion is now present with left basilar infiltration, atelectasis favored but short-term follow-up recommended to document resolution. The right lung is clear. Bones are intact. A central catheter sheath present on prior exam has been removed. Thank you for allowing us to participate in the care of your patient. [facility]-[id number] Procedure Note Hm Interface, Radiology Results Incoming - 10/16/2017 3:10 PM CDT XR CHEST 2 VW CLINICAL INDICATION: I25.10 Atherosclerotic heart disease of [place] coronary artery without angina pectoris, Post-op surgery COMPARISON: 09/17/2017 IMPRESSION: The heart is mildly enlarged with stable changes poststernotomy/CABG. Small left pleural effusion is now present with left basilar infiltration, atelectasis favored but short-term follow-up recommended to document resolution. The right lung is clear. Bones are intact. A central catheter sheath present on prior exam has been removed. Thank you for allowing us to participate in the care of your patient. [facility]-[id number] Performing Organization Address City/[facility]/Zipcode Phone Number [facility] [address] [place] [address] * ECG 12 lead (09/22/2017 2:44 PM) Only the most recent of 6 results within the time period is included. Ventricular rate 90 [facility] MUSE Atrial rate 90 [facility] MUSE MA interval 200 [facility] MUSE QRSD interval 82 [facility] MUSE QT interval 350 [facility] QTC interval 428 [facility] MUSE P axis 1 13 [facility] MUSE QRS axis 1 11 [facility] MUSE T wave axis 35 [facility] MUSE EKG impression Normal sinus rhythm-Normal [facility] MUSE ECG- Performing Organization Address [facility] Centercode Phone Number [facility] [employer] [address] [place] [address] * CBC with platelet and differential (09/22/2017 11:30 AM) Only the most recent of 9 results within the time period is included. WBC 8.54 4.50 - 11.00 k/uL [facility] DEPARTMENT OF PATHOLOGY AND GENOMIC MEDICINE RBC 2.92 (L) 4.40 - 6.00 m/uL [facility] DEPARTMENT OF PATHOLOGY AND GENOMIC MEDICINE HGB 8.9 (L) 14.0 - 18.0 g/dL [facility] DEPARTMENT OF PATHOLOGY AND GENOMIC MEDICINE HCT 27.7 (L) 41.0 - 51.0 % [facility] DEPARTMENT OF PATHOLOGY AND GENOMIC MEDICINE MCV 94.9 82.0 - 100.0 fL [facility] DEPARTMENT OF PATHOLOGY AND GENOMIC MEDICINE MCH 30.5 27.0 - 34.0 pg [facility] DEPARTMENT OF PATHOLOGY AND GENOMIC MEDICINE MCHC 32.1 31.0 - 37.0 g/dL [facility] DEPARTMENT OF PATHOLOGY AND GENOMIC MEDICINE RDW - SD 48.2 37.0 - 55.0 fL [facility] DEPARTMENT OF PATHOLOGY AND GENOMIC MEDICINE MPV 10.1 8.8 - 13.2 fL [facility] DEPARTMENT OF PATHOLOGY AND GENOMIC MEDICINE Platelet count 275 150 - 400 k/uL [facility] DEPARTMENT OF PATHOLOGY AND GENOMIC MEDICINE Nucleated RBC 0.20 /100 WBC [facility] DEPARTMENT OF PATHOLOGY AND GENOMIC MEDICINE Neutrophils 71.4 (H) 39.0 - 69.0 % [facility] DEPARTMENT OF PATHOLOGY AND GENOMIC MEDICINE Lymphocytes 12.9 (L) 25.0 - 45.0 % [facility] DEPARTMENT OF PATHOLOGY AND GENOMIC MEDICINE Monocytes 10.0 0.0 - 10.0 % [facility] DEPARTMENT OF PATHOLOGY AND GENOMIC MEDICINE Eosinophils 4.4 0.0 - 5.0 % [facility] DEPARTMENT OF PATHOLOGY AND GENOMIC MEDICINE Basophils 0.6 0.0 - 1.0 % [facility] DEPARTMENT OF PATHOLOGY AND GENOMIC MEDICINE Immature granulocytes 0.7Comment: "Immature 0.0 - 1.0 % [facility] DEPARTMENT OF granulocytes" (promyelocytes, PATHOLOGY AND myelocytes, metamyelocytes) GENOMIC MEDICINE Specimen Blood Performing Organization Address City/State/[facility] Centercode Phone Number [facility] DEPARTMENT OF [address] [place] [address] PATHOLOGY AND GENOMIC MEDICINE * Estimated GFR (09/22/2017 4:00 AM) Only the most recent of 10 results within the time period is included. GFR Non Af Amer 49 (A) mL/min/1.73 m2 [facility] DEPARTMENT OF PATHOLOGY AND GENOMIC MEDICINE GFR Af Amer 59 (A) mL/min/1.73 m2 [facility] DEPARTMENT OF Comment: PATHOLOGY AND Chronic kidney disease: <60 GENOMIC MEDICINE mL/min/1.73m2 Kidney failure: <15 mL/min/1.73m2 The estimated GFR is calculated from the IDMS-traceable Modification of Diet in Renal Disease Equation. The accuracy of the calculation is poor when the creatinine is normal. Calculated values >90 mL/min/1.73m2 are not reported. This equation has not been validated in children (<18 years), women, the elderly (>70 years), or ethnic groups other than Caucasians and Americans. Specimen Plasma specimen Performing Organization Address City/State/[facility] Centercode Phone Number [facility] DEPARTMENT OF [address] [place] [address] PATHOLOGY AND GENOMIC MEDICINE * Magnesium level (09/22/2017 4:00 AM) Only the most recent of 7 results within the time period is included. Magnesium 2.2 1.6 - 2.4 mg/dL [facility] DEPARTMENT OF PATHOLOGY AND GENOMIC MEDICINE Specimen Plasma specimen Performing Organization Address [facility] Centercosd Phone Number [facility] [place] [address] PATHOLOGY AND GENOMIC MEDICINE * Basic metabolic panel (09/22/2017 4:00 AM) Only the most recent of 10 results within the time period is included. Sodium 140 135 - 148 mEq/L [facility] DEPARTMENT OF PATHOLOGY AND GENOMIC MEDICINE Potassium 4.9 3.5 - 5.0 mEq/L [facility] DEPARTMENT OF PATHOLOGY AND GENOMIC MEDICINE Chloride 100 98 - 112 mEq/L [facility] DEPARTMENT OF PATHOLOGY AND GENOMIC MEDICINE CO2 28 24 - 31 mEq/L [facility] DEPARTMENT OF PATHOLOGY AND GENOMIC MEDICINE Anion gap 12@ANIO 7 - 15 mEq/L [facility] DEPARTMENT OF PATHOLOGY AND GENOMIC MEDICINE BUN 21 8 - 23 mg/dL [facility] DEPARTMENT OF PATHOLOGY AND GENOMIC MEDICINE Creatinine 1.4 (H) 0.7 - 1.2 mg/dL [facility] DEPARTMENT OF PATHOLOGY AND GENOMIC MEDICINE Glucose 116 (H) 65 - 99 mg/dL [facility] DEPARTMENT OF PATHOLOGY AND GENOMIC MEDICINE Calcium 8.5 (L) 8.8 - 10.2 mg/dL [facility] DEPARTMENT OF PATHOLOGY AND GENOMIC MEDICINE Specimen Plasma specimen Performing Organization Address [facility] Phone Number [facility] [place] [address] PATHOLOGY AND GENOMIC MEDICINE * POC glucose (09/21/2017 11:04 AM) Only the most recent of 30 results within the time period is included. POC glucose 172 (H) 65 - 99 mg/dL [facility] DEPARTMENT OF Comment: PATHOLOGY AND PENDING SALE TO [facility] Notified RN GENOMIC MEDICINE Meter ID: [id number] Pressure Welder: Linden Bianchi Performing Organization Address City/[facility]/Zipcode Phone Number [facility] [place] [address] PATHOLOGY AND GENOMIC MEDICINE * Echocardiogram complete w contrast and 3D if needed (09/18/2017 3:16 PM) [facility]ative [facility] [address] [place] [address] Pat.Name:FINESSE SMITH [facility]t.ID:[id number] .Date: 09/18/2017 Refer.MD:MAURICIO DAI MD Exam Time: 2:29:00 PMStudy Type:Routine Echo Height:68inWeight:184lb BSA: 1.97 m2 DOBAge:1935,81Y Sex: MALEBP:129/61 HR:83 bpmSonogrphr: Keyla Nash RDCS Pat. Stat.:[facility] Status:Final Echo Event ID:[id number] Order ID:[id number] Reason for Study:Post-op History / Clinical:Coronary Artery Disease, Hypertension Procedures:2D Echo, Colorflow Doppler Race:C SUMMARY: Moderate posterior pericardial effusion. FINDINGS: LV: LV size is normal. Concentric left ventricular remodeling. LVEF is hyperdynamic. Overall wall motion is hyperdynamic. EstimatedEF is >70%. RV: RV size is normal. RV systolic function is normal. LA: LA volume is mildly enlarged. RA: RA volume is upper limits of normal. AO: Aortic root diameter is normal. JAXON: Moderate posterior pericardial effusion. AV: Aortic valve not well seen. Mild aortic regurgitation. MV: No structural MV abnormalities noted. Mild mitral regurgitation. PV: Pulmonic valve not well seen. TV: No structural TV abnormalities noted. Mild tricuspid regurgitation Other:Estimated PA systolic pressure is 36-41 mmHg, assuming a meanRAP of 5-10 mmHg. MEASUREMENTS: 2D Parasternal [place] LA Ds5.1 cmLVPWd1.3 cm LVOT 1.9 cmAo Rtd 2.7 cm Index1.3 cm/m LVIDd3.6 cmIndex1.8 cm/m LV Lcbi797.9 g(122-174) LVIDs2 cmLVM Index 75.6 g/m2 LV%fs 43 % RWT0.7 IVSd 1.2 cm LA Sng Plane LA Area 23.6 cm2(8.8-23.4) LA Vol74 ml Index37.5 ml/m LA LngAx 6.3 cm RA Sng Plane RA Area 24.1 cm2(8.3-19.5) RA Vol70.1 ml Index35.6 ml/m RA LngAx 7.1 cm DOPPLER LVOT Stroke Vol LVOT 1.9 cmLVOT CO7.2 l/min LVOT TVI27.3 cmLVOT CI3.7 l/m/m2 LVOT Tm241 [id number] bpm LVOT SV 77.4 ml Signed 09/18/2017 3:46:00 PM Navid Salinas M.D. Procedure Note Interface, Radiology Results In - 09/18/2017 4:13 PM CDT Echocardiography Report [address] [place] [address] Pat.Name: FINESSE SMITH Pat.ID: [id number] .Date: 09/18/2017 Refer.MD: MAURICIO DAI MD Exam Time: 2:29:00 PM Study Type:Routine Echo Height: 68in Weight: 184lb BSA: 1.97 m2 Age: 6 1935,81Y Sex: MALE BP: 129/61 HR: 83 bpm Sonogrphr: Keyla Nash RDCS Pat. Stat.:Inpatient Room: [facility] Study Status:Final Echo Event ID:[id number] Order ID: [id number] Reason for Study:Post-op History / Clinical:Coronary Artery Disease, Hypertension Procedures:2D Echo, Colorflow Doppler Race: C SUMMARY: Moderate posterior pericardial effusion. FINDINGS: LV: LV size is normal. Concentric left ventricular remodeling. LV EF is hyperdynamic. Overall wall motion is hyperdynamic. Estimated EF is >70%. RV: RV size is normal. RV systolic function is normal. LA: LA volume is mildly enlarged. RA: RA volume is upper limits of normal. AO: Aortic root diameter is normal. JAXON: Moderate posterior pericardial effusion. AV: Aortic valve not well seen. Mild aortic regurgitation. MV: No structural MV abnormalities noted. Mild mitral regurgitation. PV: Pulmonic valve not well seen. TV: No structural TV abnormalities noted. Mild tricuspid regurgitation Other: Estimated PA systolic pressure is 36-41 mmHg, assuming a mean RAP of 5-10 mmHg. MEASUREMENTS: 2D Parasternal [place] LA Ds 5.1 cm LVPWd 1.3 cm LVOT 1.9 cm Ao Rtd 2.7 cm Index 1.3 cm/m LVIDd 3.6 cm Index 1.8 cm/m LV Mass 148.9 g (122-174) LVIDs 2 cm LVM Index 75.6 g/m2 LV%fs 43 % RWT 0.7 IVSd 1.2 cm LA Sng Plane LA Area 23.6 cm2 (8.8-23.4) LA Vol 74 ml Index 37.5 ml/m LA LngAx 6.3 cm RA Sng Plane RA Area 24.1 cm2 (8.3-19.5) RA Vol 70.1 ml Index 35.6 ml/m RA LngAx 7.1 cm DOPPLER LVOT Stroke Vol LVOT 1.9 cm LVOT CO 7.2 l/min LVOT TVI 27.3 cm LVOT CI 3.7 l/m/m2 LVOT Tm 241 msec HR 93 bpm LVOT SV 77.4 ml Signed 09/18/2017 3:46:00 PM Navid Salinas M.D. Performing Organization Address City/[facility] Centercode Phone Number [facility] [address] [place] [address] * Phosphorus level (09/18/2017) Only the most recent of 4 results within the time period is included. Phosphorus 2.6 2.4 - 4.5 mg/dL [facility] DEPARTMENT OF PATHOLOGY AND GENOMIC MEDICINE Specimen Plasma specimen Performing Organization Address [facility] Phone Number [facility] DEPARTMENT OF [address] [place] [address] PATHOLOGY AND GENOMIC MEDICINE * Ionized calcium (09/18/2017) Only the most recent of 3 results within the time period is included. pH 7.43 [facility] DEPARTMENT OF PATHOLOGY AND GENOMIC MEDICINE Ionized calcium 1.21 1.11 - 1.32 mmol/L [facility] [facility] MEDICINE Specimen Plasma specimen Performing Organization Address [facility] Phone Number [facility] DEPARTMENT OF [address] [place] [address] PATHOLOGY AND GENOMIC MEDICINE * XR Chest 1 Vw Portable (09/17/2017 4:59 AM) Only the most recent of 5 results within the time period is included. Narrative Performed At EXAMINATION:XR CHEST 1 VW PORTABLE RADIANT CLINICAL HISTORY:RALES COMPARISON:09/16/2017 IMPRESSION: There is increasing atelectasis or consolidation in the retrocardiac left lower lobe, with less visualization of the left hemidiaphragm. The right lung is clear. Cardiomegaly is stable. There may be small bilateral pleural effusions which appear stable. Right internal jugular sheath is stable. [id number] Procedure Note Interface, Radiology Results Incoming - 09/17/2017 7:33 AM CDT EXAMINATION: XR CHEST 1 VW PORTABLE CLINICAL HISTORY: RALES COMPARISON: 09/16/2017 IMPRESSION: There is increasing atelectasis or consolidation in the retrocardiac left lower lobe, with less visualization of the left hemidiaphragm. The right lung is clear. Cardiomegaly is stable. There may be small bilateral pleural effusions which appear stable. Right internal jugular sheath is stable. [id number] Performing Organization Address [facility] [address] * Partial thromboplastin time, activated (09/17/2017 2:15 AM) Only the most recent of 4 results within the time period is included. PTT 44.8 (H) 23.0 - 36.0 sec [facility] DEPARTMENT OF Comment: PATHOLOGY AND PTT therapeutic range for [facility] unfractionated heparin is 61.0-112.0 seconds which corresponds to Anti-Xa 0.3-0.7 U/ml. Specimen Blood Performing Organization Address [facility] [place] [address] PATHOLOGY AND [employer] MEDICINE * Prothrombin time with INR (09/17/2017 2:15 AM) Only the most recent of 12 results within the time period is included. Prothrombin time 18.0 (H) 12.0 - 15.0 sec [facility] DEPARTMENT OF PATHOLOGY AND GENOMIC MEDICINE INR 1.5 [facility] DEPARTMENT OF Comment: PATHOLOGY AND The International Normalized GENOMIC MEDICINE Ratio (INR) is a therapeutic monitoring tool for patients who are stable on oral anticoagulant therapy. An INR of 2.0-3.0 is suggested for deep vein thrombosis/pulmonary embolism. Specimen Blood Performing Organization Address [facility] Phone Number [facility] DEPARTMENT OF [address] [place] [address] PATHOLOGY AND [employer] MEDICINE * CBC hemogram (09/17/2017 2:15 AM) Only the most recent of 3 results within the time period is included. WBC 9.56 4.50 - 11.00 k/uL [facility] DEPARTMENT OF PATHOLOGY AND GENOMIC MEDICINE RBC 2.55 (L) 4.40 - 6.00 m/uL [facility] DEPARTMENT OF PATHOLOGY AND GENOMIC MEDICINE HGB 7.8 (L) 14.0 - 18.0 g/dL [facility] DEPARTMENT OF PATHOLOGY AND GENOMIC MEDICINE HCT 22.7 (L) 41.0 - 51.0 % [facility] DEPARTMENT OF PATHOLOGY AND GENOMIC MEDICINE MCV 89.0 82.0 - 100.0 fL [facility] DEPARTMENT OF PATHOLOGY AND GENOMIC MEDICINE MCH 30.6 27.0 - 34.0 pg [facility] DEPARTMENT OF PATHOLOGY AND GENOMIC MEDICINE MCHC 34.4 31.0 - 37.0 g/dL [facility] DEPARTMENT OF PATHOLOGY AND GENOMIC MEDICINE RDW - SD 46.6 37.0 - 55.0 fL [facility] DEPARTMENT OF PATHOLOGY AND GENOMIC MEDICINE MPV 11.3 8.8 - 13.2 fL [facility] DEPARTMENT OF PATHOLOGY AND GENOMIC MEDICINE Platelet count 122 (L) 150 - 400 k/uL [facility] DEPARTMENT OF PATHOLOGY AND GENOMIC MEDICINE Nucleated RBC 0.00 /100 WBC [facility] DEPARTMENT OF PATHOLOGY AND GENOMIC MEDICINE Specimen Blood Performing Organization Address City/[facility] [place] [address] PATHOLOGY AND [facility] * Fibrinogen (09/15/2017 10:15 PM) Only the most recent of 8 results within the time period is included. Fibrinogen 218 200 - 450 mg/dL [facility] DEPARTMENT OF PATHOLOGY AND GENOMIC MEDICINE Specimen Blood Performing Organization Address City/[facility] [place] [address] [facility] * Ionized calcium, arterial (09/15/2017 6:38 PM) Only the most recent of 12 results within the time period is included. Ionized calcium, arterial 1.24 1.11 - 1.32 mmol/L [facility] DEPARTMENT OF PATHOLOGY AND GENOMIC MEDICINE Specimen Blood Performing Organization Address City/[facility] [place] [address] [facility] * Arterial blood gas (09/15/2017 6:38 PM) Only the most recent of 7 results within the time period is included. pH, arterial 7.45 7.35 - 7.45 [facility] DEPARTMENT OF PATHOLOGY AND GENOMIC MEDICINE pCO2, arterial 35 35 - 45 mmHg [facility] DEPARTMENT OF PATHOLOGY AND GENOMIC MEDICINE pO2, arterial 173 (H) 80 - 90 mmHg [facility] DEPARTMENT OF PATHOLOGY AND GENOMIC MEDICINE Bicarbonate, arterial 24.2 21.0 - 28.0 mmol/L [facility] DEPARTMENT OF PATHOLOGY AND GENOMIC MEDICINE Base excess, arterial 1 -2 - 2 mEq/L [facility] DEPARTMENT OF PATHOLOGY AND GENOMIC MEDICINE O2 saturation, arterial 100 95 - 100 % [facility] DEPARTMENT OF PATHOLOGY AND GENOMIC MEDICINE Specimen Blood Performing Organization Address City/[facility] [place] [address] PATHOLOGY AND GENOMIC MEDICINE * Hemoglobin & hematocrit (09/15/2017 6:05 PM) HGB 9.0 (L) 14.0 - 18.0 g/dL [facility] DEPARTMENT OF PATHOLOGY AND GENOMIC MEDICINE HCT 26.7 (L) 41.0 - 51.0 % [facility] DEPARTMENT OF PATHOLOGY AND GENOMIC MEDICINE Performing Organization Address City/[facility] Phone Number [facility] [place] [address] PATHOLOGY AND [facility] * Platelet count (09/15/2017 6:05 PM) Only the most recent of 6 results within the time period is included. Platelet count 133 (L) 150 - 400 k/uL [facility] DEPARTMENT OF PATHOLOGY AND GENOMIC MEDICINE Performing Organization Address City/[facility] Phone Number [facility] [place] [address] PATHOLOGY AND [facility] * Sodium level, syringe (09/15/2017 5:42 PM) Only the most recent of 11 results within the time period is included. Sodium, syringe 142 135 - 148 mEq/L [facility] DEPARTMENT OF PATHOLOGY AND GENOMIC MEDICINE Specimen Blood Performing Organization Address City/[facility] Phone Number [facility] [place] [address] PATHOLOGY AND [facility] * Potassium, syringe (09/15/2017 5:42 PM) Only the most recent of 11 results within the time period is included. Potassium, syringe 4.2 3.5 - 5.0 mEq/L [facility] DEPARTMENT OF PATHOLOGY AND GENOMIC MEDICINE Specimen Blood Performing Organization Address City/[facility] Phone Number [facility] [place] [address] PATHOLOGY AND [facility] * Hemoglobin, syringe (09/15/2017 5:42 PM) Only the most recent of 11 results within the time period is included. Hemoglobin, syringe 8.3 (L) 14.0 - 18.0 g/dL [facility] DEPARTMENT OF PATHOLOGY AND GENOMIC MEDICINE Specimen Blood Performing Organization Address City/[facility]/[place] [address] PATHOLOGY AND GENOMIC MEDICINE * Glucose level, syringe (09/15/2017 5:42 PM) Only the most recent of 11 results within the time period is included. Glucose, syringe 153 (H) 65 - 99 mg/dL [facility] DEPARTMENT PATHOLOGY AND GENOMIC MEDICINE Specimen Blood Performing Organization Address [facility] [place] [address] PATHOLOGY AND [facility] * Hematocrit (09/15/2017 4:52 PM) Only the most recent of 4 results within the time period is included. HCT 21.2 (L) 41.0 - 51.0 % [facility] PATHOLOGY [facility] GENOMIC MEDICINE Performing Organization Address [facility] [place] [address] PATHOLOGY [facility] MEDICINE * Arterial blood gas, corrected (09/15/2017 1:16 PM) Only the most recent of 5 results within the time period is included. pH, arterial 7.36 7.35 - 7.45 [facility] DEPARTMENT OF PATHOLOGY AND GENOMIC MEDICINE pCO2, arterial 42 35 - 45 mmHg [facility] DEPARTMENT OF PATHOLOGY AND GENOMIC MEDICINE pO2, arterial 267 (H) 80 - 90 mmHg [facility] DEPARTMENT OF PATHOLOGY AND GENOMIC MEDICINE Temperature, Celsius 37.1 Degrees C [facility] DEPARTMENT OF PATHOLOGY AND GENOMIC MEDICINE O2 saturation, arterial 100 95 - 100 % [facility] DEPARTMENT OF PATHOLOGY AND GENOMIC MEDICINE pH, arterial corrected 7.36 [facility] DEPARTMENT OF PATHOLOGY AND GENOMIC MEDICINE pCO2, arterial corrected 42 mmHg [facility] DEPARTMENT OF PATHOLOGY AND GENOMIC MEDICINE pO2, arterial corrected 267 mmHg [facility] DEPARTMENT OF PATHOLOGY AND GENOMIC MEDICINE Base excess, arterial -2 -2 - 2 mEq/L [facility] DEPARTMENT OF PATHOLOGY AND GENOMIC MEDICINE Specimen Blood Performing Organization Address [facility] [place] [address] PATHOLOGY AND GENOMIC MEDICINE * PA catheter (09/15/2017 8:39 AM) Narrative Performed At Cinda Mei MD 09/15/20178:40 AM PA catheter Performed by: CINDA MEI Authorized by: SUNITA CASSIDY Patient Location:OR Start Time:09/15/2017 7:50 AM End Time:09/15/2017 7:55 AM Staff: Anesthesiologist:SUNITA CASSIDY Resident/FABRIC STRETCHER/AA:CINDA MEI Performed by:Resident/FABRIC STRETCHER/AA and anesthesiologist Preprocedure: patient identified, IV checked, site and side verified, risks and benefits discussed, procedure verified, surgical consent complete, patient position confirmed, monitors and equipment checked and pre-op evaluation complete MSBT: antiseptic used, all elements of maximal sterile barrier technique followed, hand hygiene performed, cap/gown used by other personnel and solutions labeled TIme Out Performed:09/15/2017 7:30 AM Procedure details: 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 PA Catheter Size:9 PA Catheter Side:Right PA Catheter Site:Internal jugular Ports flushed: All ports flushed pre-procedure Balloon checked: Balloon checked prior to insertion Post-procedure: No arrhythmia: No arrhythmias noted Patient tolerance:Patient tolerated the procedure well with no immediate complications * Central line (09/15/2017 8:37 AM) Narrative Performed At Cinda Mei MD 09/15/20178:39 AM Central line Performed by: CINDA MEI Authorized by: SUNITA CASSIDY Patient Location:OR Start Time:09/15/2017 7:45 AM End Time:09/15/2017 7:55 AM Staff: Anesthesiologist:SUNITA CASSIDY Resident/FABRIC STRETCHER/AA:CINDA MEI Performed by:Resident/MADALYN/AA Preprocedure:patient identified, IV checked, site and side verified, risks and benefits discussed, procedure verified, surgical consent complete, patient position confirmed, monitors and equipment checked and pre-op evaluation complete MSBT: antiseptic used during central venous catheter insertion, all elements of maximal sterile barrier technique followed, hand hygiene performed prior to central venous catheter insertion, cap/gown used by other personnel during central venous catheter insertion, solutions labeled and all ports not used during insertion clamped TIme Out Performed:09/15/2017 7:30 AM Indications: Indications:Central pressure monitoring and vascular access Anesthesia: Anesthesia:General Procedure details: Patient position:Trendelenburg Catheter Type:Double lumen Catheter Size:9 Fr Catheter Site: internal jugular vein Catheter site laterality:Right Pre-procedure: Landmarks identified Ultrasound guidance used: Yes Ultrasound image saved: Yes Pressure transduced: Pressure transduced prior to dilator Number of attempts:1 Successful placement: Yes Guidewire removal: Guidewire removal is confirmed Guidewire removal witnessed by:SUNITA CASSIDY Post-procedure: Post-procedure: line sutured, sterile dressing applied per protocol and ports flushed with saline Post-procedure:Sterile caps on all hubs and blood cleaned with CHG Assessment:Blood return through all ports and free fluid flow Patient tolerance:Patient tolerated the procedure well with no immediate complications * Arterial line (09/15/2017 8:34 AM) Narrative Performed At Cinda Mei MD 09/15/20178:37 AM Arterial line Performed by: CINDA MEI Authorized by: SUNITA CASSIDY Patient Location:Pre-op Start Time:09/15/2017 6:45 AM End Time:09/15/2017 6:55 AM Staff: Anesthesiologist:SUNTIA CASSIDY Resident/FABRIC STRETCHER/AA:CINDA MEI Performed by:Resident/FABRIC STRETCHER/AA Pre-procedure: patient identified, IV checked, site and side verified, risks and benefits discussed, procedure verified, surgical consent complete, patient position confirmed, monitors and equipment checked and pre-op evaluation complete MSBT: antiseptic used, all elements of maximal sterile barrier technique followed, hand hygiene performed, cap/gown used by other personnel and solutions labeled TIme Out Performed:09/15/2017 6:45 AM Indications: Indications: multiple ABGs and hemodynamic monitoring Anesthesia: Anesthesia:Local infiltration Procedure Details: Arterial Line placement:Placed pre-induction Line placement site:Radial Line placement side:Right Arterial line gauge:20 G Number of attempts:2 Ultrasound guidance used: Yes Post-procedure: Post-procedure:Sterile dressing applied Post procedure circulation, sensation, movement:Unchanged and normal Patient tolerance:Patient tolerated the procedure well with no immediate complications * ANESTHESIA INTUBATION (09/15/2017 8:31 AM) Narrative Performed At Cinda Mei MD 09/15/20178:34 AM Airway Date/Time: 09/15/2017 8:00 AM Performed by: CINDA MEI Authorized by: SUNITA CASSIDY Location:OR Urgency:Elective Difficult Airway: No Anesthesiologist:SUNITA CASSIDY Performed by: anesthesiologist Preoxygenated with 100% O2: Yes Mask Ventilation:Easy mask Final Airway Type:Endotracheal airway Final Endotracheal Airway:ETT Cuffed: Yes Technique Used:Direct laryngoscopy Insertion Site:Oral Blade Type:Gerard Laryngoscope Blade/Videolaryngoscope Blade Size:2 ETT Size (mm):8.0 Cuff at minimum occlusion pressure: Yes Measured from:Lips ETT to Lips (cm):23 Placement Verified by: CO2 detection, direct visualization and equal breath sounds Laryngoscopic view:Grade I - full view of glottis Rapid Sequence Induction (RSI): No Modified RSI: No Number of Attempts at Approach:1 * Echocardiogram complete w contrast and 3D if needed (09/14/2017 10:12 AM) Narrative Performed At [facility] Echocardiography Report [address] [place] [address] Pat.Name:FINESSE SMITH [facility].ID:[id number] .Date: 09/14/2017 Refer.MD:MAURICIO DAI MD Exam Time: 9:37:00 AMStudy Type:Routine Echo Height:68inWeight:167lb BSA: 1.89 m2 DOBAge:1935,81Y Sex: MALEBP:116/56 HR:69 bpm Sonogrphr: Federica Brooks RDCS, RVT Pat. Stat.:Inpatient Room:[facility] Study Status:Final Echo Event ID:[id number] Order ID:[id number] Reason for Study:Pre-op History / Clinical:Coronary Artery Disease, Hypertension Procedures:2D Echo, Colorflow Doppler, Strain Race:C SUMMARY: LV EF is normal. RV systolic function is normal. Diastolic dysfunction Grade I (Mild): Impaired relaxation with normal LV filling pressures. Estimated PA systolic pressure is 30 mmHg, assuming a mean RAP of 5 mmHg. FINDINGS: LV: LV size is normal. LV EF is normal. Overall wall motion is normal.Estimated EF is 65-69% RV: RV size is normal. RV systolic function is normal. LA: LA volume is mildly enlarged. RA: RA size is normal. AO: Aortic root diameter is normal. JAXON: There is an anterior space consistent with a prominent epicardialfat pad. AV: No structural AV abnormalities noted. Mild aortic regurgitation. MV: No structural MV abnormalities noted. A trace of mitral regurgitation. PV: No structural PV abnormalities noted. TV: No structural TV abnormalities noted. A trace of tricuspid regurgitation Ramos: Diastolic dysfunction Grade I (Mild): Impaired relaxation withnormal LV filling pressures. Other:Estimated PA systolic pressure is 30 mmHg, assuming a mean RAPof 5 mmHg. MEASUREMENTS: 2D Parasternal [place] LA Ds4.7 cmLVPWd1.2 cm LVOT 2 cmAo An2 cm LVIDd5.2 cmIndex2.8 cm/m Ao Rtd 3.5 cm Index1.9 cm/m LVIDs2.8 cm LV Nbli736 g(122-174) LV%fs 46.6 % LVM Hnmnq051.9 g/m2 IVSd 1.2 cmRWT0.4 LA Sng Plane LA Area 22 cm2(8.8-23.4) LA Vol66.9 ml Index35.4 ml/m LA LngAx 6 cm RA Sng Plane RA Area 16.8 cm2(8.3-19.5) RA Vol36.1 ml Index19.1 ml/m RA LngAx 6.5 cm DOPPLER LVOT Stroke Vol LVOT 2 cmLVOT CO5.8 l/min LVOT TVI29.1 cmLVOT CI3 l/m/m2 LVOT Tm343 olkiXV87 bpm LVOT SV 91.4 ml Signed 09/14/2017 03:17 PM Agusto Laird M.D. Procedure Note Interface, Radiology Results In - 09/14/2017 3:17 PM CDT Echocardiography Report [id number] [address] Pat.Name: FINESSE SMITH Pat.ID: [id number] St.Date: 09/14/2017 Refer.MD: MAURICIO DAI MD Exam Time: 9:37:00 AM Study Type:Routine Echo Height: 68in Weight: 167lb BSA: 1.89 m2 Age: 6 1935,81Y Sex: MALE BP: 116/56 HR: 69 bpm Sonogrphr: Federica Brooks RDCS, RVT Pat. Stat.:Inpatient Room: [facility] Study Status:Final Echo Event ID:[id number] Order ID: [id number] Reason for Study:Pre-op History / Clinical:Coronary Artery Disease, Hypertension Procedures:2D Echo, Colorflow Doppler, Strain Race: C SUMMARY: LV EF is normal. RV systolic function is normal. Diastolic dysfunction Grade I (Mild): Impaired relaxation with normal LV filling pressures. Estimated PA systolic pressure is 30 mmHg, assuming a mean RAP of 5 mmHg. FINDINGS: LV: LV size is normal. LV EF is normal. Overall wall motion is normal. Estimated EF is 65-69% RV: RV size is normal. RV systolic function is normal. LA: LA volume is mildly enlarged. RA: RA size is normal. AO: Aortic root diameter is normal. JAXON: There is an anterior space consistent with a prominent epicardial fat pad. AV: No structural AV abnormalities noted. Mild aortic regurgitation. MV: No structural MV abnormalities noted. A trace of mitral regurgitation. PV: No structural PV abnormalities noted. TV: No structural TV abnormalities noted. A trace of tricuspid regurgitation Ramos: Diastolic dysfunction Grade I (Mild): Impaired relaxation with normal LV filling pressures. Other: Estimated PA systolic pressure is 30 mmHg, assuming a mean RAP of 5 mmHg. MEASUREMENTS: 2D Parasternal Long [place] LA Ds 4.7 cm LVPWd 1.2 cm LVOT 2 cm Ao An 2 cm LVIDd 5.2 cm Index 2.8 cm/m Ao Rtd 3.5 cm Index 1.9 cm/m LVIDs 2.8 cm LV Mass 238 g (122-174) LV%fs 46.6 % LVM Index 125.9 g/m2 IVSd 1.2 cm RWT 0.4 LA S[address]ane LA Area 22 cm2 (8.8-23.4) LA Vol 66.9 ml Index 35.4 ml/m LA LngAx 6 cm RA Sng Plane RA Area 16.8 cm2 (8.3-19.5) RA Vol 36.1 ml Index 19.1 ml/m RA LngAx 6.5 cm DOPPLER LVOT Stroke Vol LVOT 2 cm LVOT CO 5.8 l/min LVOT TVI 29.1 cm LVOT CI 3 l/m/m2 LVOT Tm 343 msec HR 63 bpm LVOT SV 91.4 ml Signed 09/14/2017 03:17 PM Agusto Laird M.D. Performing Organization Address City/State/Zipcode Phone Number [phone] [place] [address] * Prepare platelet pheresis (09/14/2017 5:45 AM) Product name Apheresis PLT, Leukored IRR #2 [facility] DEPARTMENT OF PATHOLOGY AND GENOMIC MEDICINE Unit number [id number] [facility] DEPARTMENT OF PATHOLOGY AND GENOMIC MEDICINE Product code [id number] [facility] DEPARTMENT OF PATHOLOGY AND GENOMIC MEDICINE Dispense status Transfused [facility] DEPARTMENT OF PATHOLOGY AND GENOMIC MEDICINE Blood expiration date [facility] DEPARTMENT OF PATHOLOGY AND GENOMIC MEDICINE Blood type code 5100 [facility] DEPARTMENT OF PATHOLOGY AND GENOMIC MEDICINE Blood type O POSITIVE [facility] DEPARTMENT OF PATHOLOGY AND GENOMIC MEDICINE Product name Platelets, Aph#1 PAS Irrad LR [facility] DEPARTMENT OF PATHOLOGY AND GENOMIC MEDICINE Unit number [id number] [facility] DEPARTMENT OF PATHOLOGY AND GENOMIC MEDICINE Product code [id number] [facility] DEPARTMENT OF PATHOLOGY AND GENOMIC MEDICINE Dispense status Transfused [facility] DEPARTMENT OF PATHOLOGY AND GENOMIC MEDICINE Blood expiration date [facility] DEPARTMENT OF PATHOLOGY AND GENOMIC MEDICINE Blood type code 5100 [facility] DEPARTMENT OF PATHOLOGY AND GENOMIC MEDICINE Blood type O POSITIVE [facility] DEPARTMENT OF PATHOLOGY AND GENOMIC MEDICINE Product name Apheresis Platelet ACDA LRIRR [facility] DEPARTMENT OF #1 PATHOLOGY AND GENOMIC MEDICINE Unit number [id number] [facility] DEPARTMENT OF PATHOLOGY AND GENOMIC MEDICINE Product code [id number] [facility] DEPARTMENT OF PATHOLOGY AND GENOMIC MEDICINE Dispense status Transfused [facility] DEPARTMENT OF PATHOLOGY AND GENOMIC MEDICINE Blood expiration date [facility] DEPARTMENT OF PATHOLOGY AND GENOMIC MEDICINE Blood type code 5100 [facility] DEPARTMENT OF PATHOLOGY AND GENOMIC MEDICINE Blood type O POSITIVE [facility] DEPARTMENT OF PATHOLOGY AND GENOMIC MEDICINE Product name Apheresis Platelet ACDA LRIRR [facility] DEPARTMENT OF #1 PATHOLOGY AND GENOMIC MEDICINE Unit number [id number] [facility] DEPARTMENT OF PATHOLOGY AND GENOMIC MEDICINE Product code [id number] [facility] DEPARTMENT OF PATHOLOGY AND GENOMIC MEDICINE Dispense status Transfused [facility] DEPARTMENT OF PATHOLOGY AND GENOMIC MEDICINE Blood expiration date [facility] DEPARTMENT OF PATHOLOGY AND GENOMIC MEDICINE Blood type code 5100 [facility] DEPARTMENT OF PATHOLOGY AND GENOMIC MEDICINE Blood type O POSITIVE [facility] DEPARTMENT OF PATHOLOGY AND GENOMIC MEDICINE Performing Organization Address City/State/Zipcode Phone Number [facility] DEPARTMENT OF [address] [place] [address] PATHOLOGY AND GENOMIC MEDICINE * Prepare fresh frozen plasma (09/14/2017 5:45 AM) Product name Thawed Plasma [id number] [facility] DEPARTMENT OF PATHOLOGY AND GENOMIC MEDICINE Unit number [id number] [facility] DEPARTMENT OF PATHOLOGY AND GENOMIC MEDICINE Product code [id number] [facility] DEPARTMENT OF PATHOLOGY AND GENOMIC MEDICINE Dispense status Transfused [facility] DEPARTMENT OF PATHOLOGY AND GENOMIC MEDICINE Blood expiration date [facility] DEPARTMENT OF PATHOLOGY AND GENOMIC MEDICINE Blood type code 5100 [facility] DEPARTMENT OF PATHOLOGY AND GENOMIC MEDICINE Blood type O POSITIVE [facility] DEPARTMENT OF PATHOLOGY AND GENOMIC MEDICINE Product name Thawed Plasma CPDA1 [facility] DEPARTMENT OF PATHOLOGY AND GENOMIC MEDICINE Unit number [id number] [facility] DEPARTMENT OF PATHOLOGY AND GENOMIC MEDICINE Product code [id number] [facility] DEPARTMENT OF PATHOLOGY AND GENOMIC MEDICINE Dispense status Transfused [facility] DEPARTMENT OF PATHOLOGY AND GENOMIC MEDICINE Blood expiration date [facility] DEPARTMENT OF PATHOLOGY AND GENOMIC MEDICINE Blood type code 9500 [facility] DEPARTMENT OF PATHOLOGY AND GENOMIC MEDICINE Blood type O NEGATIVE [facility] DEPARTMENT OF PATHOLOGY AND GENOMIC MEDICINE Product name Thawed Plasma [facility] DEPARTMENT OF PATHOLOGY AND GENOMIC MEDICINE Unit number [id number] [facility] DEPARTMENT OF PATHOLOGY AND GENOMIC MEDICINE Product code [id number] [facility] DEPARTMENT OF PATHOLOGY AND GENOMIC MEDICINE Dispense status Transfused [facility] DEPARTMENT OF PATHOLOGY AND GENOMIC MEDICINE Blood expiration date [facility] DEPARTMENT OF PATHOLOGY AND GENOMIC MEDICINE Blood type code 5100 [facility] DEPARTMENT OF PATHOLOGY AND GENOMIC MEDICINE Blood type O POSITIVE [facility] DEPARTMENT OF PATHOLOGY AND GENOMIC MEDICINE Product name Thawed Plasma [facility] DEPARTMENT OF PATHOLOGY AND GENOMIC MEDICINE Unit number [id number] [facility] DEPARTMENT OF PATHOLOGY AND GENOMIC MEDICINE Product code [id number] [facility] DEPARTMENT OF PATHOLOGY AND GENOMIC MEDICINE Dispense status Transfused [facility] DEPARTMENT OF PATHOLOGY AND GENOMIC MEDICINE Blood expiration date [facility] DEPARTMENT OF PATHOLOGY AND GENOMIC MEDICINE Blood type code 5100 [facility] DEPARTMENT OF PATHOLOGY AND GENOMIC MEDICINE Blood type O POSITIVE [facility] DEPARTMENT OF PATHOLOGY AND GENOMIC MEDICINE Performing Organization Address City/State/Zipcode Phone Number [address] [address] PATHOLOGY AND GENOMIC MEDICINE * Prepare RBC (09/14/2017 5:45 AM) Product name Red Blood Cells -1, Leukored [facility] DEPARTMENT OF PATHOLOGY AND GENOMIC MEDICINE Unit number [id number] [facility] DEPARTMENT OF PATHOLOGY AND GENOMIC MEDICINE Product code [id number] [facility] DEPARTMENT OF PATHOLOGY AND GENOMIC MEDICINE Dispense status Transfused [facility] DEPARTMENT OF PATHOLOGY AND GENOMIC MEDICINE Blood expiration date [facility] DEPARTMENT OF PATHOLOGY AND GENOMIC MEDICINE Blood type code 5100 [facility] DEPARTMENT OF PATHOLOGY AND GENOMIC MEDICINE Blood type O POSITIVE [facility] DEPARTMENT OF PATHOLOGY AND GENOMIC MEDICINE Product name Red Blood Cells -1, Leukored [facility] DEPARTMENT OF PATHOLOGY AND GENOMIC MEDICINE Unit number [id number] [facility] DEPARTMENT OF PATHOLOGY AND GENOMIC MEDICINE Product code [id number] [facility] DEPARTMENT OF PATHOLOGY AND GENOMIC MEDICINE Dispense status Transfused [facility] DEPARTMENT OF PATHOLOGY AND GENOMIC MEDICINE Blood expiration date [facility] DEPARTMENT OF PATHOLOGY AND GENOMIC MEDICINE Blood type code 5100 [facility] DEPARTMENT OF PATHOLOGY AND GENOMIC MEDICINE Blood type O POSITIVE [facility] DEPARTMENT OF PATHOLOGY AND GENOMIC MEDICINE Product name Red Blood Cells -1, Leukored [facility] DEPARTMENT OF PATHOLOGY AND GENOMIC MEDICINE Unit number [id number] [facility] DEPARTMENT OF PATHOLOGY AND GENOMIC MEDICINE Product code [id number] [facility] DEPARTMENT OF PATHOLOGY AND GENOMIC MEDICINE Dispense status Transfused [facility] DEPARTMENT OF PATHOLOGY AND GENOMIC MEDICINE Blood expiration date [facility] DEPARTMENT OF PATHOLOGY AND GENOMIC MEDICINE Blood type code 5100 [facility] DEPARTMENT OF PATHOLOGY AND GENOMIC MEDICINE Blood type O POSITIVE [facility] DEPARTMENT OF PATHOLOGY AND GENOMIC MEDICINE Product name Red Blood Cells -1, Leukored [facility] DEPARTMENT OF PATHOLOGY AND GENOMIC MEDICINE Unit number [id number] [facility] DEPARTMENT OF PATHOLOGY AND GENOMIC MEDICINE Product code [id number] [facility] DEPARTMENT OF PATHOLOGY AND GENOMIC MEDICINE Dispense status Transfused [facility] DEPARTMENT OF PATHOLOGY AND GENOMIC MEDICINE Blood expiration date [facility] DEPARTMENT OF PATHOLOGY AND GENOMIC MEDICINE Blood type code 5100 [facility] DEPARTMENT OF PATHOLOGY AND GENOMIC MEDICINE Blood type O POSITIVE [facility] DEPARTMENT OF PATHOLOGY AND GENOMIC MEDICINE Product name Red Blood Cells -1, Leukored [facility] DEPARTMENT OF PATHOLOGY AND GENOMIC MEDICINE Unit number [id number] [facility] DEPARTMENT OF PATHOLOGY AND GENOMIC MEDICINE Product code [id number] [facility] DEPARTMENT OF PATHOLOGY AND GENOMIC MEDICINE Dispense status Transfused [facility] DEPARTMENT OF PATHOLOGY AND GENOMIC MEDICINE Blood expiration date [facility] DEPARTMENT OF PATHOLOGY AND GENOMIC MEDICINE Blood type code 5100 [facility] DEPARTMENT OF PATHOLOGY AND GENOMIC MEDICINE Blood type O POSITIVE [facility] DEPARTMENT OF PATHOLOGY AND GENOMIC MEDICINE Product name Red Blood Cells -1, Leukored [facility] DEPARTMENT OF PATHOLOGY AND GENOMIC MEDICINE Unit number [id number] [facility] DEPARTMENT OF PATHOLOGY AND GENOMIC MEDICINE Product code [id number] [facility] DEPARTMENT OF PATHOLOGY AND GENOMIC MEDICINE Dispense status Transfused [facility] DEPARTMENT OF PATHOLOGY AND GENOMIC MEDICINE Blood expiration date [facility] DEPARTMENT OF PATHOLOGY AND GENOMIC MEDICINE Blood type code 5100 [facility] DEPARTMENT OF PATHOLOGY AND GENOMIC MEDICINE Blood type O POSITIVE [facility] DEPARTMENT OF PATHOLOGY AND GENOMIC MEDICINE Product name Red Blood Cells -1, Leukored [facility] DEPARTMENT OF PATHOLOGY AND GENOMIC MEDICINE Unit number [id number] [facility] DEPARTMENT OF PATHOLOGY AND GENOMIC MEDICINE Product code [id number] [facility] DEPARTMENT OF PATHOLOGY AND GENOMIC MEDICINE Dispense status Transfused [facility] DEPARTMENT OF PATHOLOGY AND GENOMIC MEDICINE Blood expiration date [facility] DEPARTMENT OF PATHOLOGY AND GENOMIC MEDICINE Blood type code 5100 [facility] DEPARTMENT OF PATHOLOGY AND GENOMIC MEDICINE Blood type O POSITIVE [facility] DEPARTMENT OF PATHOLOGY AND GENOMIC MEDICINE Product name Red Blood Cells -1, Leukored [facility] DEPARTMENT OF PATHOLOGY AND GENOMIC MEDICINE Unit number [id number] [facility] DEPARTMENT OF PATHOLOGY AND GENOMIC MEDICINE Product code [id number] [facility] DEPARTMENT OF PATHOLOGY AND GENOMIC MEDICINE Dispense status Transfused [facility] DEPARTMENT OF PATHOLOGY AND GENOMIC MEDICINE Blood expiration date [facility] DEPARTMENT OF PATHOLOGY AND GENOMIC MEDICINE Blood type code 5100 [facility] DEPARTMENT OF PATHOLOGY AND GENOMIC MEDICINE Blood type O POSITIVE [facility] DEPARTMENT OF PATHOLOGY AND GENOMIC MEDICINE Performing Organization Address City/[facility] Centercode Phone Number [facility] [place] [address] PATHOLOGY AND GENOMIC MEDICINE * Type and screen (09/14/2017 5:45 AM) ABO grouping O [facility] DEPARTMENT OF PATHOLOGY AND GENOMIC MEDICINE Rh type POS [facility] DEPARTMENT OF PATHOLOGY AND GENOMIC MEDICINE Antibody screen (gel) NEG [facility] DEPARTMENT OF PATHOLOGY AND GENOMIC MEDICINE Performing Organization Address City/[facility] Centercode Phone Number [facility] [place] [address] PATHOLOGY AND GENOMIC MEDICINE * Hemoglobin A1c (09/14/2017 5:30 AM) Hemoglobin A1C 5.8 (H) 4.0 - 5.6 % [facility] DEPARTMENT OF Comment: PATHOLOGY AND HbA1c cutoffs for diagnosing GENOMIC MEDICINE diabetes: 4.0% - 5.6%=normal 5.7% - 6.4%=increased risk for diabetes (prediabetes) >=6.5%=diabetes Goals for glycemic control (ADA 2016) < 7.0%Target for non adults with diabetes. More or less stringent targets may be appropriate for individual patients. <7.5% Target for Children and adolescents with type 1 diabetes. Specimen Blood Performing Organization Address City/[facility]/Zipcode Phone Number [facility] [place] [address] PATHOLOGY AND GENOMIC MEDICINE * Lipid panel (09/14/2017 5:30 AM) Cholesterol 110 <200 mg/dL [facility] DEPARTMENT OF PATHOLOGY AND GENOMIC MEDICINE Triglycerides 101 <150 mg/dL [facility] DEPARTMENT OF PATHOLOGY AND GENOMIC MEDICINE HDL cholesterol 48 >40 mg/dL [facility] DEPARTMENT OF PATHOLOGY AND GENOMIC MEDICINE LDL cholesterol 51Comment: Result obtained by <100 mg/dL [facility] DEPARTMENT OF direct LDL measurement PATHOLOGY AND GENOMIC MEDICINE Lipid panel SeeBelow [facility] DEPARTMENT OF interpretation Comment: PATHOLOGY AND Total Cholesterol GENOMIC MEDICINE (mg/dL) <200 Desirable 200-239Borderline -high >=240High Triglycerides (mg/dL) <150 Normal 150-199Borderline -high 200-499High >=500Very high HDL Cholesterol (mg/dL) <40Low (male) <40Low (female) LDL Cholesterol (mg/dL) <100 Optimal 100-129Near or above optimal 130-159Borderline -high 160-189High >=190Very high Risk Catergories that modify LDL goals. Risk Catergories LDL goal (mg/dL) CHD and CHD risk equivalent<100 (10-year risk >20%) Multiple (2+) risk factors <130 (10-year risk=<20%) 0-1 risk factors <160 (<10-year risk) Defining levels of lipids in metabolic syndrome Triglycerides >=150 mg/dL HDL Cholesterol Men <40 mg/dL Women <40 mg/dL Non-HDL cholesterol is a second target for therapy in persons with high triglycerides (>=200 mg/dL) Specimen Plasma specimen Performing Organization Address City/State/Zipcode Phone Number [facility] DEPARTMENT OF [address] [place] [address] PATHOLOGY AND GENOMIC MEDICINE * Pv carotid duplex (09/14/2017 12:47 AM) Narrative Performed At [facility] Vascular Ultrasound Laboratory Carotid Artery Duplex Report [id number] [facility], [facility] [address], [place] [address] For manager quality systems purposes, the categorization of the degree of the stenosis of this exam is based on criteria described in the IAC carotid stenosis grading white paper( www.intersocietal.org/Vascular) and Crystal Moncada., Rai Mcdowell., et al. Carotid artery stenosis: jones-scale and Doppler US diagnosis--Society of Radiologists in Ultrasound Consensus Conference. Radiology. 2003 Nov; 229(2):340-6. Pat.Name:FINESSE SMITH [facility].ID:[id number] .Date: 09/14/2017 Refer.MD:MAURICIO DAI MD Exam Time: 3:37:00 AMStudy Type:Carotid DOBAge:1935,81Y Sex: MALE Sonogrphr: Asha Givens RVTPat. Stat.:Inpatient Room:[address] TapeVol: , CPT - 4: [address]502 Echo Event ID:[id number] Order ID:[id number] Reason for Study:Pre-operatove cardiovascular exam for CABG. History of HTN, HLD, CKD, CAD. Procedures:Colorflow, Grayscale/2D, Power Doppler Imaging Race:C SUMMARY: PHYSICAL ASSESSMENT BloodPulsesCarotid Pressure Carotid TemporalBruit Right 139/63 ++0 Left ___ ++0 CAROTID ARTERY SCAN RIGHT: There is scattered hard and calcified plaque noted in the common carotid artery. There is hard and calcified plaque in the bulb extending into the internal carotid and external carotid artery. Colorflow is normal. LEFT:There is scattered hard and calcified plaque noted in the common carotid artery. There is hard and calcified plaque in the bulb extending into the internal carotid and external carotid artery. Colorflow is disturbed in the external carotid artery. PRELIMINARY FINDINGS 1. Non-stenotic plaque noted in the common carotid artery, bilaterally. 2. <50% stenosis of the bulb and internal carotid artery, bilaterally. 3. <50% stenosis of the right external carotid artery. 4. >50% stenosis of the left external carotid artery. PHYSICIAN INTERPRETATION Bilateral carotid duplex examination demonstrated atherosclerotic plaques in the bulbs/ CCAs. Less than 50% stenosis in the bulb and internal carotid artery, bilaterally. Both vertebral arteries are antegrade. Left ECA stenosis. Carotid Findings:RightLeft Verteb.Flw AntegradeAntegrade Subclavian Biphasic Biphasic MEASUREMENTS: DOPPLER Right CCA Dist CCA Dist PSV72.5 cm/sCCA Dist EDV12.8 cm/s Right CCA Mid CCA Mid PSV 83.8 cm/sCCA Mid EDV 14.4 cm/s Right CCA Prox CCA Prox PSV77.4 cm/sCCA Prox EDV11.1 cm/s Right ECA Prox ECA Prox PSV 128 cm/sECA Prox EDV 0 cm/s Right ICA Dist ICA Dist PSV62.4 cm/Kyra Dist EDV13.2 cm/s Right ICA Mid ICA Mid PSV 45.8 cm/Kyra Mid EDV 10.4 cm/s Right ICA Prox ICA Prox PSV63.8 cm/Kyra Prox EDV11.7 cm/s Right Vertebral Vertebral PSV 22.9 cm/sVertebral EDV 5.41 cm/s Left CCA Dist CCA Dist PSV72.7 cm/sCCA Dist EDV11.6 cm/s Left CCA Mid CCA Mid PSV 74.6 cm/sCCA Mid EDV 15.6 cm/s Left CCA Prox CCA Prox PSV63.8 cm/sCCA Prox EDV10.3 cm/s Left ECA Prox ECA Prox PSV 214 cm/sECA Prox EDV 0 cm/s Left ICA Dist ICA Dist PSV 120 cm/Kyra Dist EDV31.3 cm/s Left ICA Mid ICA Mid [id number] cm/Kyra Mid EDV 24.2 cm/s Left ICA Prox ICA Prox PSV 113 cm/Kyra Prox EDV32.2 cm/s Left Vertebral Vertebral PSV 42.6 cm/sVertebral EDV 8.93 cm/s Right ICA/CCA Ratio ICA/CCA PSV0.761 Left ICA/CCA Ratio ICA/CCA PSV 1.51 Signed 09/14/2017 11:43 AM Denny Cantor MD, RPVI Procedure Note Interface, Radiology Results In - 09/14/2017 11:44 AM CDT Vascular Ultrasound Laboratory Carotid Artery Duplex Report [id number] [address] For manager quality systems purposes, the categorization of the degree of the stenosis of this exam is based on criteria described in the IAC carotid stenosis grading white paper( www.intersocietal.org/Vascular) and Crystal Moncada., Rai Mcdowell., et al. Carotid artery stenosis: jones-scale and Doppler US diagnosis--Society of Radiologists in Ultrasound Consensus Conference. Radiology. 2003 Feb; 229(2):340-6. Pat.Name: FINESSE SMITH Pat.ID: [id number] .Date: 09/14/2017 Refer.MD: MAURICIO DAI MD Exam Time: 3:37:00 AM Study Type:Carotid Age: 6 1935,81Y Sex: MALE Sonogrphr: Asha Givens RVT Pat. Stat.:Inpatient Room: [address] Vol: RF, CPT - 4: [address]4062 Echo Event ID:[id number] Order ID: [id number] Reason for Study:Pre-operatove cardiovascular exam for CABG. History of HTN, HLD, CKD, CAD. Procedures:Colorflow, Grayscale/2D, Power Doppler Imaging Race: C SUMMARY: PHYSICAL ASSESSMENT Blood Pulses Carotid Pressure Carotid Temporal Bruit Right 139/63 + + 0 Left ___ + + 0 CAROTID ARTERY SCAN RIGHT: There is scattered hard and calcified plaque noted in the common carotid artery. There is hard and calcified plaque in the bulb extending into the internal carotid and external carotid artery. Colorflow is normal. LEFT:There is scattered hard and calcified plaque noted in the common carotid artery. There is hard and calcified plaque in the bulb extending into the internal carotid and external carotid artery. Colorflow is disturbed in the external carotid artery. PRELIMINARY FINDINGS 1. Non-stenotic plaque noted in the common carotid artery, bilaterally. 2. <50% stenosis of the bulb and internal carotid artery, bilaterally. 3. <50% stenosis of the right external carotid artery. 4. >50% stenosis of the left external carotid artery. PHYSICIAN INTERPRETATION Bilateral carotid duplex examination demonstrated atherosclerotic plaques in the bulbs/ CCAs. Less than 50% stenosis in the bulb and internal carotid artery, bilaterally. Both vertebral arteries are antegrade. Left ECA stenosis. Carotid Findings: Right Left Verteb.Flw Antegrade Antegrade Subclavian Biphasic Biphasic MEASUREMENTS: DOPPLER Right CCA Dist CCA Dist PSV 72.5 cm/s CCA Dist EDV 12.8 cm/s Right CCA Mid CCA Mid PSV 83.8 cm/s CCA Mid EDV 14.4 cm/s Right CCA Prox CCA Prox PSV 77.4 cm/s CCA Prox EDV 11.1 cm/s Right ECA Prox ECA Prox PSV 128 cm/s ECA Prox EDV 0 cm/s Right ICA Dist ICA Dist PSV 62.4 cm/s ICA Dist EDV 13.2 cm/s Right ICA Mid ICA Mid PSV 45.8 cm/s ICA Mid EDV 10.4 cm/s Right ICA Prox ICA Prox PSV 63.8 cm/s ICA Prox EDV 11.7 cm/s Right Vertebral Vertebral PSV 22.9 cm/s Vertebral EDV 5.41 cm/s Left CCA Dist CCA Dist PSV 72.7 cm/s CCA Dist EDV 11.6 cm/s Left CCA Mid CCA Mid PSV 74.6 cm/s CCA Mid EDV 15.6 cm/s Left CCA Prox CCA Prox PSV 63.8 cm/s CCA Prox EDV 10.3 cm/s Left ECA Prox ECA Prox PSV 214 cm/s ECA Prox EDV 0 cm/s Left ICA Dist ICA Dist PSV 120 cm/s ICA Dist EDV 31.3 cm/s Left ICA Mid ICA Mid PSV 103 cm/s ICA Mid EDV 24.2 cm/s Left ICA Prox ICA Prox PSV 113 cm/s ICA Prox EDV 32.2 cm/s Left Vertebral Vertebral PSV 42.6 cm/s Vertebral EDV 8.93 cm/s Right ICA/CCA Ratio ICA/CCA PSV 0.761 Left ICA/CCA Ratio ICA/CCA PSV 1.51 Signed 09/14/2017 11:43 AM Denny Cantor MD, RPVI Performing Organization Address City/[facility]/Zipcode Phone Number [facility] [address] [place] [address] * Urinalysis screen and microscopy, with reflex to culture (09/13/2017 2:56 PM) Specimen site Clean catch [facility] DEPARTMENT OF PATHOLOGY AND GENOMIC MEDICINE Color, UA Straw [facility] DEPARTMENT OF PATHOLOGY AND GENOMIC MEDICINE Appearance, UA Clear [facility] DEPARTMENT OF PATHOLOGY AND GENOMIC MEDICINE Specific gravity, UA 1.009 1.001 - 1.035 [facility] DEPARTMENT OF PATHOLOGY AND GENOMIC MEDICINE pH, UA 7.0 5.0 - 8.5 [facility] DEPARTMENT OF PATHOLOGY AND GENOMIC MEDICINE Protein, UA Negative Negative [facility] DEPARTMENT OF PATHOLOGY AND GENOMIC MEDICINE Glucose, UA Negative Negative [facility] DEPARTMENT OF PATHOLOGY AND GENOMIC MEDICINE Ketones, UA Negative Negative [facility] DEPARTMENT OF PATHOLOGY AND GENOMIC MEDICINE Bilirubin, UA Negative Negative [facility] DEPARTMENT OF PATHOLOGY AND GENOMIC MEDICINE Blood, UA Negative Negative [facility] DEPARTMENT OF PATHOLOGY AND GENOMIC MEDICINE Nitrite, UA Negative Negative [facility] DEPARTMENT OF PATHOLOGY AND GENOMIC MEDICINE Urobilinogen, UA <2.0 <2.0 [facility] DEPARTMENT OF PATHOLOGY AND GENOMIC MEDICINE Leukocyte esterase, UA Negative Negative [facility] DEPARTMENT OF PATHOLOGY AND GENOMIC MEDICINE WBC, UA <1 0 - 1 /HPF [facility] DEPARTMENT OF PATHOLOGY AND GENOMIC MEDICINE RBC, UA None seen 0 - 5 /HPF [facility] DEPARTMENT OF PATHOLOGY AND GENOMIC MEDICINE Bacteria, UA None seen None seen [facility] DEPARTMENT OF PATHOLOGY AND GENOMIC MEDICINE Yeast, UA None seen [facility] DEPARTMENT OF PATHOLOGY AND GENOMIC MEDICINE Yeast with pseudohyphae, None seen [facility] DEPARTMENT OF UA PATHOLOGY AND GENOMIC MEDICINE Specimen Urine Performing Organization Address City/[facility]ercode Phone Number [facility] DEPARTMENT [address] [address] PATHOLOGY AND GENOMIC MEDICINE * Urine culture (09/13/2017 2:56 PM) Urine culture SEE COMMENTComment: [facility] DEPARTMENT OF Bacteriuria screen negative. PATHOLOGY AND GENOMIC MEDICINE Performing Organization Address City/[facility]/Zipcode Phone Number [facility] DEPARTMENT [address] [address] PATHOLOGY AND GENOMIC MEDICINE * ECG Pre/Post Op (in AM) (09/13/2017 1:49 PM) Ventricular rate 71 [facility] Atrial rate 71 [facility] MA interval 230 [facility] QRSD interval 94 [facility] QT interval 412 [facility] QTC interval 447 [facility] P axis 1 89 [facility] QRS axis 1 -9 [facility] T wave axis 34 [facility] EKG impression Sinus rhythm with 1st degree [facility] AV block with frequent premature ventricular complexes-Otherwise normal ECG-In automated comparison with ECG of 13-SEP-2017 07:43,-premature ventricular complexes are now present- Performing Organization Address [facility] Centercode Phone Number [facility] MUSE [address] [place] [address] * Cv labor expediter procedure (09/13/2017 9:42 AM) Narrative Performed At [facility] LM: Moderate to severe mid-distal stenosis, calcified vessel LAD: Severe subtotal occlusion in mid vessel after first diagonal. Distal LAD also has severe stenosis. TIMI2 distal flow.Severely calcified vessel LCx: Mild, diffuse stenosis. OM1 has severe (70-80%) stenosis. RCA: Dominant vessel. Mild stenosis. Moderate sedation was administered with physician supervisionof patient consciousness, respiration, Oxygen saturation and CO2 monitoring, beginning [id number] ( time)for a total period of 30 minutes. I was physically present for the critical portions of all procedures performed during this episode of care Performing Organization Address [facility] Centercosd Phone Number [facility] [address] [place] [address] * Comprehensive metabolic panel (09/11/2017 9:22 AM) Only the most recent of 2 results within the time period is included. Glucose 115 (H) 65 - 99 mg/dL Testif Comment: CROSS Fasting reference interval For someone without known diabetes, a glucose value between 100 and 125 mg/dL is consistent with prediabetes and should be confirmed with a follow-up test. BUN, whole blood 17 7 - 25 mg/dL [facility] CROSS Creatinine 1.29 (H) 0.70 - 1.11 mg/dL [facility] Comment: CROSS For patients >49 years of age, the reference limit for Creatinine is approximately 13% higher for people identified as -Somali. EGFR Non-Afr. Somali 52 (L) > OR=60 mL/min/1.73m2 [facility] EGFR 60 > OR=60 mL/min/1.73m2 [facility] BUN/creatinine ratio 13 6 - 22 (calc) [facility] Sodium 140 135 - 146 mmol/L [facility] Potassium 4.4 3.5 - 5.3 mmol/L [facility] Chloride 104 98 - 110 mmol/L [facility] CO2 28 20 - 31 mmol/L [facility] Calcium 8.9 8.6 - 10.3 mg/dL [facility] Protein 6.4 6.1 - 8.1 g/dL [facility] Albumin, S 3.9 3.6 - 5.1 g/dL [facility] Globulin, total 2.5 1.9 - 3.7 g/dL (calc) [facility] Albumin/globulin ratio 1.6 1.0 - 2.5 (calc) [facility] Total bilirubin 1.0 0.2 - 1.2 mg/dL [facility] Alkaline phosphatase 74 40 - 115 U/L [facility] AST 13 10 - 35 U/L [facility] ALT 9 9 - 46 U/L [facility] Narrative Performed At FASTING:YES [facility] FASTING: YES Other Results Text Performing Organization Information: Site ID: [id number] Name: [facility] Address: [address] [place] [id number] Director: Mary Kellogg Performing Organization Address City/State/Zipcode Phone Number [facility] [address] [place] [address] * Echocardiogram complete w contrast and 3D if needed (08/07/2017 9:51 AM) Narrative Performed At [facility] Echocardiography Report Pat.Name:FINESSE SMITH PPat.ID:[id number] .Date: 08/07/2017 Refer.MD:RODOLFO GUTIERREZ MD Exam Time: 10:15:00 AM Study Type:Routine Echo Height:68inWeight:170lb BSA: 1.91 m2 DOBAge:1935,81Y Sex: MALEBP:133/60 HR:65 bpmSonogrphr: Ho Holcomb RDCS Pat. Stat.:Outpatient[facility] Study Status:Final Echo Event ID:[id number] Order ID:[id number] Reason for Study:Coronary Artery Disease History / Clinical:Coronary Artery Disease, Hypertension Procedures:2D Echo, Colorflow Doppler Race:Z SUMMARY: LV size is normal. LV EF is normal. FINDINGS: LV: LV size is normal. LV EF is normal. Overall wall motion is normal.Estimated EF is 60-64%. RV: RV size is normal. RV systolic function is normal. LA: LA volume is mildly enlarged. RA: RA size is normal. AO: Aortic root diameter is normal. JAXON: No pericardial effusion. AV: Focal calcification of AV leaflets. Mild aortic regurgitation. MV: Mild mitral annular calcification. Mild mitral regurgitation. PV: No structural PV abnormalities noted. TV: No structural TV abnormalities noted. Mild tricuspid regurgitation Ramos: LV relaxation is impaired. LV filling pressure is elevated. Other:Estimated PA systolic pressure is 35 mmHg, assuming a mean RAPof 5 mmHg. MEASUREMENTS: 2D Parasternal [place] LVOT 1.7 cmLA Ds4.7 cm LVIDd4.3 cmIndex2.3 cm/m Ao Rtd 3.2 cm Index1.7 cm/m LVIDs2.6 cm LV Tceh906.9 g(122-174) LV%fs 39 % LVM Cozyk787.6 g/m2 IVSd 1.3 cmRWT0.6 LVPWd1 cm LA Sng Plane LA Area 24.7 cm2(8.8-23.4) LA Vol76.8 ml Index40.2 ml/m LA LngAx 6.5 cm LA Biplane LA 4Ch Area 19.4 cm2 LA Vol60.3 ml Index31.6 ml/m LA 2Ch Area 19.2 cm2 Signed 08/07/2017 04:37 PM Jean Grossman MD Procedure Note Interface, Radiology Results In - 08/07/2017 4:37 PM CDT [facility] Echocardiography Report Pat.Name: FINESSE SMITH Pat.ID: [id number] St.Date: 08/07/2017 Refer.MD: RODOLFO GUTIERREZ MD Exam Time: 10:15:00 AM Study Type:Routine Echo Height: 68in Weight: 170lb BSA: 1.91 m2 Age: 5 1935,81Y Sex: MALE BP: 133/60 HR: 65 bpm Sonogrphr: Ho Holcomb RDCS Pat. Stat.:Outpatient Room: [facility] Study Status:Final Echo Event ID:[id number] Order ID: [id number] Reason for Study:Coronary Artery Disease History / Clinical:Coronary Artery Disease, Hypertension Procedures:2D Echo, Colorflow Doppler Race: Z SUMMARY: LV size is normal. LV EF is normal. FINDINGS: LV: LV size is normal. LV EF is normal. Overall wall motion is normal. Estimated EF is 60-64%. RV: RV size is normal. RV systolic function is normal. LA: LA volume is mildly enlarged. RA: RA size is normal. AO: Aortic root diameter is normal. JAXON: No pericardial effusion. AV: Focal calcification of AV leaflets. Mild aortic regurgitation. MV: Mild mitral annular calcification. Mild mitral regurgitation. PV: No structural PV abnormalities noted. TV: No structural TV abnormalities noted. Mild tricuspid regurgitation Ramos: LV relaxation is impaired. LV filling pressure is elevated. Other: Estimated PA systolic pressure is 35 mmHg, assuming a mean RAP of 5 mmHg. MEASUREMENTS: 2D Parasternal [place] LVOT 1.7 cm LA Ds 4.7 cm LVIDd 4.3 cm Index 2.3 cm/m Ao Rtd 3.2 cm Index 1.7 cm/m LVIDs 2.6 cm LV Mass 197.9 g (122-174) LV%fs 39 % LVM Index 103.6 g/m2 IVSd 1.3 cm RWT 0.6 LVPWd 1 cm LA Sng Plane LA Area 24.7 cm2 (8.8-23.4) LA Vol 76.8 ml Index 40.2 ml/m LA LngAx 6.5 cm LA Biplane LA 4Ch Area 19.4 cm2 LA Vol 60.3 ml Index 31.6 ml/m LA 2Ch Area 19.2 cm2 Signed 08/07/2017 04:37 PM Jean Grossman MD Performing Organization Address City/State/Zipcode Phone Number [id number] [place] [address] after 01/14/2017 Insurance Payer Benefit Subscriber ID Type Phone Address Plan / Group AETNA MEDICARE AETNA xxxxxxxx HMO MEDICARE HMO/PPO [facility]
--- OUTSIDE RECORDS SUMMARY | 2018-02-10 04:59 | XMS REPORT | Summary of Care ---
Author Organization Unknown Address Unknown Phone Unavailable Encounter HQ Nikor_stan(GAMAL) [id number] Date(s): 09/28/13 - 09/28/13 [facility] [address] Discharge Disposition: Home Physician Attending: [place] Figueredo MD Reason for Visit 843.9 Problem List No data available for this section Allergies, Adverse Reactions, Alerts Substance Reaction Severity Status NKDA Active Medications No data available for this section Medications Administered During Your Visit No data available for this section Immunizations No data available for this section
--- OUTSIDE RECORDS SUMMARY | 2018-02-10 04:59 | XMS REPORT ---
Author Author [facility] Address Unknown Phone Unavailable Care Team Providers Care Operations Technician Name Role Phone Belen CLARK Unavailable Unavailable JOSE FLOYD Unavailable Unavailable Problems This patient has no known problems. Allergies, Adverse Reactions, Alerts This patient has no known allergies or adverse reactions. Medications This patient has no known medications. Results Test Description Test Time Test Comments Text Results Atomic Results Result Comments G I BLEED 2018-01-22 21:12:00 [place] [address] Patient Name: HERNANDO MA MR #: [id number] : 1935 Age/Sex: 82/M Req #: [id number] Adm Physician: KRISTA CLARK MD Ordered by: HERBERT SAINZ MD Report #: [id number] Location: MED/SURG2 Room/Bed: [facility] Procedure: [id number] NM/G I BLEED Exam Date: Exam Time: REPORT STATUS: Signed Tagged-RBC GI Bleed Study Clinical information: 82-year-old male with gastrointestinal bleeding. Discussion: The patient's own red blood cells were labeled with 27.5 mCi of technetium-99m pertechnetate using the in vitro method (UltraTag). Dynamic images of the abdomen were obtained through 60 minutes. Distribution of tracer activity appears physiologic throughout the abdomen. No abnormal accumulation of tracer is seen within the gastrointestinal lumen. Impression: No scan evidence of active gastrointestinal bleeding at this time. Signed by: Dr. Emeli Hendrix M.D. on 01/22/2018 9:13 PM Dictated By: EMELI HENDRIX MD 12 Transcribed By: AVERY on 01/22/182112 COPY TO: HERBERT SAINZ MD CHEST 2 VIEWS 2018-01-22 12:23:00 [place] [address] Patient Name: HERNANDO MA MR #: [id number] : 1935 Age/Sex: 82/M Req #: [id number] Adm Physician: KRISTA CLARK MD Ordered by: KRISTA CLARK MD Report #: [id number] Location: [facility]/SURG Room/Bed: [facility] Procedure: [id number] DX/CHEST 2 VIEWS Exam Date: 01/22/18 Exam Time: 0800 REPORT STATUS: Signed PROCEDURE: Frontal and lateral views of the chest. COMPARISON: Chest radiograph 06/17/17. INDICATIONS: FEVER FINDINGS: Lines/tubes: None. Lungs: Moderate lung volumes. There is patchy opacity at the left lung base. Subsegmental linear left mid and lower lung zone atelectasis. There is no evidence of pneumonia or pulmonary edema. Pleura: There is no evidence of pneumothorax. Small left pleural effusion. Heart and mediastinum: The cardiomediastinal silhouette is unchanged. Bones: No acute bony abnormality. Status post median sternotomy. IMPRESSION: Small left pleural effusion with patchy left retrocardiac opacity, which could reflect pneumonia or atelectasis in the appropriate clinical setting. Follow-up chest radiograph in 6-8 weeks is suggested to assess for resolution. Dictated by: GUILLERMINA BRUCE M.D. on 01/22/2018 at 12:23 Electronically approved by: GUILLERMINA BRUCE M.D. on 01/22/2018 at 12:23 Dictated By: GUILLERMINA BRUCE MD 1223 Transcribed By: JOSELIN on 01/22/18 1223 COPY TO: KRISTA CLARK MD CT ABDOMEN/PELVIS W 2018-01-19 19:14:00 [place] [address] Patient Name: HERNANDO MA MR #: [id number] : 1935 Age/Sex: 82/M Req #: [id number] Adm Physician: KRISTA CLARK MD Ordered by: KRISTA CLARK MD Report #: [id number] Location: [facility]/SURG Room/Bed: [facility] Procedure: [id number] CT/CT ABDOMEN/PELVIS W Exam Date: 01/19/18 Exam Time: 1840 REPORT STATUS: Signed EXAMINATION: CT of the abdomen and pelvis with contrast. TECHNIQUE: Spiral CT images of the abdomen and pelvis were performed from the lung bases to the lesser trochanters after the intravenous administration of 100 cc of Isovue 370 and the oral administration of dilute Gastrografin. Coronal and sagittal reformatted images were obtained. COMPARISON: CT abdomen and pelvis 08/07/2016 CLINICAL HISTORY:All abdominal pain, recurrent rectal bleeding, bright red blood in stool DISCUSSION: ABDOMEN/PELVIS: LOWER THORAX:Small to moderate left pleural effusion and associated compressive atelectasis of the left lower lobe. Atherosclerotic calcification of the thoracic aorta and coronary arteries HEPATOBILIARY: No focal hepatic lesions. No intra or extrahepatic biliary ductal dilation. GALLBLADDER: No radio-opaque stones or sludge. No wall thickening. SPLEEN: No splenomegaly. PANCREAS: No focal masses or ductal dilatation. ADRENALS: No adrenal nodules. KIDNEYS/URETERS: No hydronephrosis, stones, or solid mass lesions. Slight interval increase in size of 4.3 x 3.4 cm simple cyst in the posterior interpolar right kidney (series 2, image 36), which previously measured approximately 4.2 x 2.9 cm. Stable 3.4 x 2.1 cm simple cyst in the anterior interpolar right kidney (series 2, image 37). PELVIC ORGANS/BLADDER: Mild circumferential bladder wall thickening. Prostate is enlarged, measuring approximately 5.4 cm in transverse diameter. PERITONEUM/RETROPERITONEUM: No free air or fluid. LYMPH NODES: No intra-abdominal, retroperitoneal, pelvic or inguinal lymphadenopathy. VESSELS: Atherosclerotic calcification of the abdominal aorta and iliac vessels. GI TRACT: Extensive diverticulosis of the sigm oid. Mild to moderate wall thickening in the proximal and mid to distal sigmoid colon (for example series 2, images 74 and 68), which may reflect muscular hypertrophy. No surrounding inflammatory changes to suggest diverticulitis. No foci of extra luminal air. No definite intraluminal masses are seen. Appendix is well identified and normal in caliber. BONES AND SOFT TISSUE: No aggressive lytic lesions. Stable grade 1 anterolisthesis of L5 on S1 secondary to bilateral pars interarticularis defects. Small fat- containing right internal hernia. IMPRESSION: 1. Extensive divert iculosis of the sigmoid, with mild to moderate wall thickening in the proximal and mid to distal sigmoid, which may reflect muscular hypertrophy. No surrounding fat stranding/inflammatory changes are noted to suggest acute diverticulitis. No foci of extraluminal air to suggest perforation. No bowel intraluminal masses are identified. Recommend direct visualization with endoscopy for further evaluation. 2. Slight interval increase in size of 4.3 cm simple cyst in the right kidney. 3. Small to moderate left pleural effusion and associated compressive atelectasis of the left lower lobe. Signed by: Dr. Benitez Fu M.D. on 01/19/2018 7:23 PM Dictated By: BENITEZ FU MD 22 Transcribed By: AVERY on 01/19/181922 COPY TO: KRISTA CLARK MD G I BLEED 2018-01-18 23:41:00 [place] [address] Patient Name: HERNANDO MA MR #: [id number] : 1935 Age/Sex: 82/M Req #: [id number] Adm Physician: KRISTA CLARK MD Ordered by: HERBERT SAINZ MD Report #: [id number] Location: MED/SURG2 Room/Bed: [facility] Procedure: [id number] NM/G I BLEED Exam Date: 01/18/18 Exam Time: 2100 REPORT STATUS: Signed EXAM: G I BLEED INDICATION: Gastrointestinal bleeding COMPARISON: None FINDINGS: The patient's own red blood cells were labeled with 24 mCi of technetium-99m pertechnetate using the in vitro method (UltraTag). Dynamic images of the abdomen were obtained through 60 minutes. Distribution of tracer activity appears physiologic throughout the abdomen. No abnormal accumulation of tracer is seen within the gastrointestinal lumen. IMPRESSION: There is no scan evidence of active gastrointestinal bleeding at this time. Signed by: Dr. Obed Unger M.D. on 01/18/2018 11:42 PM Dictated By: OBED UNGER MD 41 Transcribed By: AVERY on 01/18/182341 COPY TO: HERBERT SAINZ MD CHEST (INCL MEDIASTINUM) [place] [address] Patient Name: HERNANDO MA MR #: [id number] : 1935 Age/Sex: 82/M Req #: [id number] Adm Physician: Ordered by: KRISTA CLARK MD Report #: [id number] Location: Room/Bed: Procedure: US/US CHEST (INCL MEDIASTINUM) Exam Date: 09/30/17 Exam Time: 1608 REPORT STATUS: Signed PROCEDURE: US CHEST (INCL MEDIASTINUM) COMPARISON: [facility], , CHEST 2 VIEWS, 06/17/2017, 11:56. INDICATIONS: Left Pleural Effusion FINDINGS: Examination shows small right simple appearing pleural effusion with associated atelectasis. Small to moderate left pleural effusion, which may contain a small amount of debris. Associated atelectasis. CONCLUSION: 1. Small right and [id number] left pleural effusions. The left effusion may contain a small amount of debris. Benitez Fu M.D. Dictated by: Benitez Fu M.D. on 09/30/2017 at 16:59 Electronically approved by: Benitez Fu M.D. on 09/30/2017 at 16:59 Dictated By: BENITEZ FU MD 58 Transcribed By: JOSELIN on 09/30/171658 COPY TO: KRISTA CLARK MD CHEST 2 VIEWS [place] [address] Patient Name: HERNANDO MA MR #: [id number] : 1935 Age/Sex: 81/M Req #: [id number] Adm Physician: Ordered by: JOSE FLOYD MD Report #: [id number] Location: [facility] Room/Bed: Procedure: [id number] DX/CHEST 2 VIEWS Exam Date: Exam Time: REPORT STATUS: Signed PROCEDURE: Frontal and lateral views of the chest. COMPARISON: [facility], DX, CHEST SINGLE (NOT PORTABLE), 08/07/2016, 12:33. INDICATIONS: [...] IMPRESSION: 1. No acute cardiopulmonary abnormalities. Benitez Fu M.D. Dictated by: Benitez Fu M.D. on 06/17/2017 at 12:14 Electronically approved by: Benitez Fu M.D. on 06/17/2017 at 12:14 Dictated By: BENITEZ FU MD 1214 Transcribed By: JOSELIN on 06/17/17 1214 COPY TO: JOSE FLOYD MD
--- OUTSIDE RECORDS SUMMARY | 2018-02-10 04:59 | XMS REPORT | Continuity of Care Document ---
Author Author [facility] Address Unknown Phone Unavailable Problems Problem Status Onset Date Classification Date Reported Comments Source K76.89 - OTHER SPECIFIED DISEASES OF LI Active 03/21/2017 [facility] [place] HTN (<span ID="[id number]">Confirmed</span>) Active Problem 03/29/2017 [facility] [place] Colon polyp Resolved Problem 03/29/2017 [facility] [place] 843.9 Active [facility] Medications Medication Details Route Status Patient Instructions Ordering Provider Order Date Source Allergies, Adverse Reactions, Alerts Substance Category Reaction Severity Reaction type Status Date Reported Comments Source Immunizations Immunization Date Given Site Status Last Updated Comments Source Results Order Name Results Value Reference Range Date Interpretation Comments Source Abd Liver Protocol w/wo IV contrast CT Abd Liver Protocol w/wo IV contrast CT Exam: CT Scan of the abdomen with and without contrast Reason for Exam: - K76.89 Other specified diseases of liver; liver cyst Comparison Exam: None Technique: Multiple axial images were obtained of the abdomen. 5 mm slices were acquired before and after injection of 100 cc Omnipaque 300 IV. Oral contrast was given. Reformatted sagittal and coronal images were obtained. Total exam KAL=8253 mGy-cm. This exam was performed according to our departmental dose- optimization program, which includes automated exposure control, adjustment of the MA and/or KV according to patient size and/or use of iterative reconstruction technique. Discussion: Visualized portions of the lung bases are clear. No cysts are seen within the liver. However, there are 2 subcentimeter hyperdense regions seen on arterial phase imaging only (5, 31 and 5, 54). They appear isodense to the rest of the liver parenchyma on the other phases. Differential diagnosis includes FNH, flash filling hemangioma, and AVM. Portal venous system is patent. The gallbladder and biliary ductal system are unremarkable. Stomach is unremarkable. Pancreas, adrenal glands, and spleen are within normal limits. 8mm cyst seen within the left kidney. Multiple cysts are seen within the right kidney measuring up to 4.3 cm. They are most compatible with simple cysts. No hydronephrosis or hydroureter. No dilated loops of bowel. No appreciable lymphadenopathy. Bilateral pars defects are seen at the L5 level. No suspicious osteoblastic or osteolytic lesions. Moderate amount of atherosclerotic plaque seen within the abdominal aorta and its major branches. Impression: 1. No cysts are seen within the liver. However, 2 subcentimeter hypodense regions are seen within the liver likely representing FNH, flash filling hemangioma, or AVM. 03/26/2017 - - Read by: Vincenzo Berkowitz MD Dictated Date/time: 03/26/17 12:21 Electronically Signed by: Vincenzo Berkowitz MD 03/26/17 12:31 FINAL REPORT WILLIE Ortiz Hip min 2 views Hip min 2 views LEFT HIP (2 Views) HISTORY: Left hip pain. TECHNIQUE: The left hip was evaluated in neutral and external rotation. FINDINGS: The joint spaces are well maintained. There is no evidence of fracture, dislocation, degenerative change, or other osteoarticular abnormality. Mild vascular calcifications are noted within the left femoral artery. CONCLUSION: 1. Negative left hip. Coding: Hip min 2 views CPT code: 03652 SL: 14 Jeff Ramon M.D. 09/28/2013 - - Read by: Jeff Ramon MD Dictated Date/time: 09/28/13 15:31 Electronically Signed by: Jeff Ramon MD 09/28/13 15:34 FINAL REPORT [facility] Vital Signs Vital Sign Value Date Comments Source Encounters Location Location Details Encounter Type Encounter Number Reason For Visit Attending Provider ADM Date DC Date Status Source [facility] Outpatient [id number] [place] Figueredo 09/28/2013 09/29/2013 [facility] Out[facility] [id number] [facility] 03/07/2016 Active [facility] Outpatient [id number] THEODOROS VOLOYIANMARLIN 05/13/[address] [facility] [place] [facility] [id number] Nic Reid 03/26/2017 03/27/2017 WILLIE Ortiz Procedures Procedure Code Date Perfomer Comments Source
--- OUTSIDE RECORDS SUMMARY | 2018-02-10 05:00 | XMS REPORT | Summary of Care ---
Author Author [facility] Organization [facility] Address Unknown Phone Unavailable Encounter HQ Nikor_stan(FIN) [id number] Date(s): 03/26/17 - 03/26/17 [facility] [place] [address] [place] [address] [phone] Discharge Disposition: Home or Self Care Attending Physician: Nic Reid MD Referring Physician: Physician, Non Associated MD Vital Signs No data available for this section Problem List Condition Effective Dates Status Health Status Informant HTN Active (hypertension)(Confi r[facility]) Colon Resolved polyp(Confirmed) Allergies, Adverse Reactions, Alerts Substance Reaction Severity Status NKDA Active Medications No data available for this section Results No data available for this section Immunizations No data available for this section Procedures No data available for this section Social History Social History Type Response Alcohol Never Smoking Status Never smoker; Exposure to Tobacco Smoke None; Cigarette Smoking Last 365 Days No; Reg Smoking Cessation Counseling Yes Assessment and Plan No data available for this section
--- OUTSIDE RECORDS SUMMARY | 2018-02-10 05:00 | XMS REPORT | Clinical Summary ---
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 Dai 09/26/2017 Orders Only Cardiovascular Sary Foreman RN Coronary artery disease involving [place] coronary artery of [place] heart, angina presence unspecified (Primary Dx) 09/22/2017 Patient Quality Bev Dumont RN Outreach 09/15/2017 Procedure Pass Cardiothoracic Surgery 09/15/2017 Surgery Cardiothoracic Surgery Rodolfo Gutierrez Cabg With Endoscopic Vein MD Jonah Harvesting, ROCHA to LAD, SVG to OM 09/14/2017 Anesthesia Cardiothoracic Surgery Sunita Cassidy MD Event 09/13/2017 Hospital Cardiology Mauricio Dai MD Coronary artery disease - Encounter of [place] artery of 09/22/2017 [place] heart with stable angina pectoris (Primary Dx); Coronary artery disease involving [place] coronary artery of [place] heart with angina pectoris; Pre-procedure lab exam 09/13/2017 Procedure Pass Procedural Cardiology 09/13/2017 Surgery Procedural Cardiology Mauricio Dai MD Cv left heart cath w lv gram cors [[id number] (CPT)] 09/11/2017 Orders Only Cardiology Mauricio Dai MD 08/25/2017 Orders Only Cardiology Mauricio Dai MD Coronary artery disease involving [place] coronary artery of [place] heart with angina pectoris (Primary Dx); Pre-procedure lab exam 08/19/2017 Telephone Cardiovascular Ellie Gipson 08/13/2017 [facility] Procedural Cardiology Mauricio Dai MD Coronary artery disease Encounter involving [place] coronary artery of [place] heart with angina pectoris 08/13/2017 Procedure Pass Procedural Cardiology 08/08/2017 Orders Only Cardiology Mauricio Dai MD Coronary artery disease involving [place] coronary artery of [place] heart with angina pectoris (Primary Dx); Pre-procedural laboratory examination 08/07/2017 Office Visit Cardiovascular Rodolfo Gutierrez Coronary artery disease MD Jonah of [place] artery of [place] heart with stable angina pectoris (Primary Dx); Essential hypertension 08/07/2017 [facility] Rodolfo Gutierrez Coronary artery disease Encounter MD Jonah with angina pectoris, unspecified vessel or lesion type, unspecified whether [place] or transplanted heart 08/07/2017 [facility] Josselin Rodolfo Coronary artery disease Encounter MD Jonah involving [place] coronary artery of [place] heart, angina presence unspecified; Preop pulmonary/respiratory exam 08/07/2017 [facility] Josselin Rodolfo Coronary artery disease Encounter MD Jonah involving [place] coronary artery of [place] heart, angina presence unspecified; Preop pulmonary/respiratory exam 07/30/2017 Documentation Cardiovascular Loren An, RN Follow-up on OV with Dr. Gutierrez 07/30/2017 Orders Only Cardiovascular Felicia Varma MA Coronary artery disease with angina pectoris, unspecified vessel or lesion type, unspecified whether [place] or transplanted heart (Primary Dx) 07/30/2017 Orders Only Cardiovascular Sary Foreman RN 07/29/2017 Documentation Cardiovascular Loren An RN New Referral for Dr. Gutierrez from Dr. Chapincito Figueredo Other 07/29/2017 Orders Only Cardiovascular Sary Foreman RN Coronary artery disease involving [place] coronary artery of [place] heart, angina presence unspecified (Primary Dx); Preop [...] INFLUENZA VACCINE 11/26/2017 Implants Implanted Type Area Financial Analyst Accountant Device Expiration Model / Identifier Date Serial / Lot Lead Pace Mycrdl Bipolar Coax Tmpry Cardiac N/A: N/A [employer] [facility] - 09/25/2017 [id number] / Streamline - [id number] Pacing CARDIAC RYHTYM / Implanted: Qty: 1 on 09/15/2017 by Leads or MGMT Rodolfo Gutierrez MD Electrodes or Accessorie s Clip Ligtng Alck Hemoclip Plus W/ Medical N/A: N/A WECK CLOSURE 12/09/2021 [id number] / Tape Ti Sm Strngpnt - [id number] Clips for SYSTEMS / Implanted: Qty: 2 on 09/15/2017 by Internal Rodolfo Gutierrez MD Use Clip Ligtng Weck Hemoclip Plus W/ Medical N/A: N/A WECK CLOSURE 02/04/2022 [id number] / Tape Ti Sm Strngpnt - [id number] Clips for SYSTEMS / Implanted: Qty: 1 on 09/15/2017 by Internal Rodolfo Gutierrez MD Use Clip Ligtng Weck Hemoclip Plus W/ Medical N/A: N/A TELEFLEX 05/11/2020 [id number] / Tape Ti Med - [id number] Clips for MEDICAL / Implanted: Qty: 2 on 09/15/2017 by Internal Rodolfo Gutierrez MD Use Clip Ligtng Weck Hemoclip Plus W/ Medical N/A: N/A WECK CLOSURE 03/10/2022 [id number] / Tape Ti Med Lg - [id number] Clips for SYSTEMS / Implanted: Qty: 1 on 09/15/2017 by Internal Rodolfo Gutierrez MD Use Clip Ligtng Weck Hemoclip Plus W/ Medical N/A: N/A WECK CLOSURE 02/04/2022 [id number] / Tape Ti Sm Strngpnt - [id number] Clips for SYSTEMS / Implanted: Qty: 1 on 09/15/2017 by Internal Rodolfo Gutierrez MD Use Material Bone Hmsts Wtrsolbl 2.5g Orthopedic N/A: N/A CERA MED 09/25/2021 [id number] / Ostene - [id number] Trauma / Implanted: Qty: 1 on 09/15/2017 by Implants [id number] Rodolfo Gutierrez MD W Baxter Perph Vasclr Ptfe 1.2x10cm Vascular N/A: N/A BARD PERIPHERAL 02/22/2022 [id number] / 1.65mm - [id number] Graft VASCULAR / Implanted: Qty: 1 on 09/15/2017 by [id number] Rodolfo Gutierrez MD Procedures Procedure Name Priority Date/Time Associated Diagnosis Comments XR CHEST 2 VW Routine 10/16/2017 Coronary artery disease Results for this 2:54 PM CDT involving [place] coronary procedure are in the artery of [place] heart, results section. angina presence unspecified ECG [...] CDT procedure are in the [facility] (74436) results section. POC GLUCOSE Routine 09/18/2017 Results [...] CDT procedure are in the results section. AR AN ELECTIVE Routine 09/15/2017 Results for this [...] CDT procedure are in the [facility] D[facility]ER (36370) results section. ECG 12-LEAD STAT 09/14/2017 Results [...] artery disease procedure are in the involving [place] coronary results section. artery of [place] heart with angina pectoris CBC WITH PLATELET [...] Results for this 8:10 AM CDT involving [place] coronary procedure are in the artery of [place] heart results section. with angina pectoris Pre-procedural laboratory examination COMPREHENSIVE METABOLIC Routine 08/09/2017 Coronary artery disease Results for this PANEL 8:10 AM CDT involving [place] coronary procedure are in the artery of [place] heart results section. with angina pectoris Pre-procedural laboratory examination CBC WITH PLATELET AND Routine 08/09/2017 Coronary artery disease Results for this DIFFERENTIAL 8:10 AM CDT involving [place] coronary procedure are in the artery of [place] heart results section. with angina pectoris Pre-procedural laboratory examination ECHOCARDIOGRAM 2D Routine 08/07/2017 Results for this COMPLETE W MMODE SPECTRAL 9:51 AM CDT procedure are in the [facility] (42612) results section. after 01/14/2017 Results * XR Chest 2 Vw (10/16/2017 2:54 PM) Narrative [facility]:I25.10 Atherosclerotic heart disease of [place] coronary artery without angina pectoris, Post-op surgery [...] participate in the care of your patient. [facility]-[id number] Procedure Note Hm Interface, Radiology Results Incoming - 10/16/2017 3:10 PM CDT XR CHEST 2 VW CLINICAL INDICATION: I25.10 Atherosclerotic heart disease of [place] coronary artery without angina pectoris, Post-op surgery [...] participate in the care of your patient. [facility]-[id number] Performing Organization Address City/[facility]/Zipcode Phone Number [facility] [address] [place] [address] * ECG 12 lead (09/22/2017 2:44 PM) Only the most recent of 6 results within the time period is included. Ventricular rate 90 [facility]USE Atrial rate 90 [facility] MUSE AR interval 200 [facility] QRSD interval 82 [facility] QT interval 350 [facility] QTC interval 428 [facility] M[facility] P axis 1 13 [facility] M[facility] QRS axis 1 11 [facility] MUSE T wave axis 35 [facility] EKG impression Normal sinus rhythm-Normal [facility] MUSE ECG- Performing Organization Address [facility] Phone Number [facility] [employer] [address] [place] [address] * CBC with platelet and differential (09/22/2017 11:30 AM) Only the most recent of 9 results within the time period is included. WBC 8.54 4.50 - 11.00 k/uL [facility] DEPARTMENT OF PATHOLOGY AND GENOMIC MEDICINE RBC 2.92 (L) 4.40 - 6.00 m/uL [facility] DEPARTMENT OF PATHOLOGY AND GENOMIC MEDICINE HGB 8.9 (L) 14.0 - 18.0 g/dL [facility] DEPARTMENT OF PATHOLOGY AND GENOMIC MEDICINE HCT 27.7 (L) 41.0 - 51.0 % [facility] DEPARTMENT OF PATHOLOGY AND GENOMIC MEDICINE MCV 94.9 82.0 - 100.0 fL [facility] DEPARTMENT OF PATHOLOGY AND GENOMIC MEDICINE MCH 30.5 27.0 - 34.0 pg [facility] DEPARTMENT OF PATHOLOGY AND GENOMIC MEDICINE MCHC 32.1 31.0 - 37.0 g/dL [facility] DEPARTMENT OF PATHOLOGY AND GENOMIC MEDICINE RDW - SD 48.2 37.0 - 55.0 fL [facility] DEPARTMENT OF PATHOLOGY AND GENOMIC MEDICINE MPV 10.1 8.8 - 13.2 fL [facility] DEPARTMENT OF PATHOLOGY AND GENOMIC MEDICINE Platelet count 275 150 - 400 k/uL [facility] DEPARTMENT OF PATHOLOGY AND GENOMIC MEDICINE Nucleated RBC 0.20 /100 WBC [facility] DEPARTMENT OF PATHOLOGY AND GENOMIC MEDICINE Neutrophils 71.4 (H) 39.0 - 69.0 % [facility] DEPARTMENT OF PATHOLOGY AND GENOMIC MEDICINE Lymphocytes 12.9 (L) 25.0 - 45.0 % [facility] DEPARTMENT OF PATHOLOGY AND GENOMIC MEDICINE Monocytes 10.0 0.0 - 10.0 % [facility] DEPARTMENT OF PATHOLOGY AND GENOMIC MEDICINE Eosinophils 4.4 0.0 - 5.0 % [facility] DEPARTMENT OF PATHOLOGY AND GENOMIC MEDICINE Basophils 0.6 0.0 - 1.0 % [facility] DEPARTMENT OF PATHOLOGY AND GENOMIC MEDICINE Immature granulocytes 0.7Comment: "Immature 0.0 - 1.0 % [facility] DEPARTMENT OF granulocytes" (promyelocytes, PATHOLOGY AND myelocytes, metamyelocytes) GENOMIC MEDICINE Specimen Blood Performing Organization Address City/State/[facility] Phone Number [facility] DEPARTMENT OF [address] [place] [address] PATHOLOGY AND GENOMIC MEDICINE * Estimated GFR (09/22/2017 4:00 AM) Only the most recent of 10 results within the time period is included. GFR Non Af Amer 49 (A) mL/min/1.73 m2 [facility] DEPARTMENT OF PATHOLOGY AND GENOMIC MEDICINE GFR Af Amer 59 (A) mL/min/1.73 m2 [facility] DEPARTMENT OF Comment: PATHOLOGY AND Chronic kidney [...] Americans. Specimen Plasma specimen Performing Organization Address City/State/[facility] Phone Number [facility] DEPARTMENT OF [address] [place] [address] PATHOLOGY AND GENOMIC MEDICINE * Magnesium level (09/22/2017 4:00 AM) Only the most recent of 7 results within the time period is included. Magnesium 2.2 1.6 - 2.4 mg/dL [facility] DEPARTMENT OF PATHOLOGY AND GENOMIC MEDICINE Specimen Plasma specimen Performing Organization Address [facility]i Phone Number [facility] [place] [address] PATHOLOGY AND GENOMIC MEDICINE * Basic metabolic panel (09/22/2017 4:00 AM) Only the most recent of 10 results within the time period is included. Sodium 140 135 - 148 mEq/L [facility] DEPARTMENT OF PATHOLOGY AND GENOMIC MEDICINE Potassium 4.9 3.5 - 5.0 mEq/L [facility] DEPARTMENT OF PATHOLOGY AND GENOMIC MEDICINE Chloride 100 98 - 112 mEq/L [facility] DEPARTMENT OF PATHOLOGY AND GENOMIC MEDICINE CO2 28 24 - 31 mEq/L [facility] DEPARTMENT OF PATHOLOGY AND GENOMIC MEDICINE Anion gap 12@ANIO 7 - 15 mEq/L [facility] DEPARTMENT OF PATHOLOGY AND GENOMIC MEDICINE BUN 21 8 - 23 mg/dL [facility] DEPARTMENT OF PATHOLOGY AND GENOMIC MEDICINE Creatinine 1.4 (H) 0.7 - 1.2 mg/dL [facility] DEPARTMENT OF PATHOLOGY AND GENOMIC MEDICINE Glucose 116 (H) 65 - 99 mg/dL [facility] DEPARTMENT OF PATHOLOGY AND GENOMIC MEDICINE Calcium 8.5 (L) 8.8 - 10.2 mg/dL [facility] DEPARTMENT OF PATHOLOGY AND GENOMIC MEDICINE Specimen Plasma specimen Performing Organization Address [facility] Phone Number [facility] [place] [address] PATHOLOGY AND GENOMIC MEDICINE * POC glucose (09/21/2017 11:04 AM) Only the most recent of 30 results within the time period is included. POC glucose 172 (H) 65 - 99 mg/dL [facility] DEPARTMENT OF Comment: PATHOLOGY AND [facility] Notified RN GENOMIC MEDICINE Meter ID: [id number] Identification Technician: Linden Bianchi Performing Organization Address City/[facility]/Zipcode Phone Number [facility] [place] [address] PATHOLOGY AND GENOMIC MEDICINE * Echocardiogram complete w contrast and 3D if needed (09/18/2017 3:16 PM) [facility]ative [facility] [address] [place] [address] Pat.Name:FINESSE SMITH [facility].ID:[id number] .Date: 09/18/2017 Refer.MD:MAURICIO DAI MD Exam Time: 2:29:00 PMStudy Type:Routine Echo Height:68inWeight:184lb BSA: 1.97 m2 DOBAge:1935,81Y Sex: MALEBP:129/61 HR:83 bpmSonogrphr: Keyla Nash RDCS Pat. Stat.:[facility] Status:Final Echo Event ID:[id number] Order ID:[id number] Reason for Study:Post-op History / Clinical:Coronary Artery [...] of 5-10 mmHg. MEASUREMENTS: 2D Parasternal [place] Ds5.1 cmLVPWd1.3 cm LVOT 1.9 cmAo Rtd 2.7 cm Index1.3 cm/m LVIDd3.6 cmIndex1.8 cm/m LV Xyok841.9 g(122-174) LVIDs2 cmLVM Index 75.6 g/m2 LV%fs 43 % RWT0.7 IVSd 1.2 cm LA Sng Plane LA Area 23.6 cm2(8.8-23.4) LA Vol74 ml Index37.5 ml/m LA LngAx 6.3 cm RA Sng Plane RA Area 24.1 cm2(8.3-19.5) RA Vol70.1 ml Index35.6 ml/m RA LngAx 7.1 cm DOPPLER LVOT Stroke Vol LVOT 1.9 cmLVOT CO7.2 l/min LVOT TVI27.3 cmLVOT CI3.7 l/m/m2 LVOT Tm241 arbhQK78 bpm LVOT SV 77.4 ml Signed 09/18/2017 3:46:00 PM Navid Salinas M.D. Procedure Note Interface, Radiology Results In - 09/18/2017 4:13 PM CDT Echocardiography Report [address] [place] [address] Pat.Name: FINESSE SMITH Pat.ID: [id number] .Date: 09/18/2017 Refer.MD: MAURICIO DAI MD Exam Time: 2:29:00 PM Study Type:Routine Echo Height: 68in Weight: 184lb BSA: 1.97 m2 Age: 6 1935,81Y Sex: MALE BP: 129/61 HR: 83 bpm Sonogrphr: Keyla Nash RDCS Pat. Stat.:Inpatient Room: [facility] Study Status:Final Echo Event ID:[id number] Order ID: [id number] Reason for Study:Post-op History / Clinical:Coronary Artery [...] of 5-10 mmHg. MEASUREMENTS: 2D Parasternal [place] Ds 5.1 cm LVPWd 1.3 cm [...] PM Navid Salinas M.D. Performing Organization Address City/[facility] Phone Number [facility] [address] [place] [address] * Phosphorus level (09/18/2017) Only the most recent of 4 results within the time period is included. Phosphorus 2.6 2.4 - 4.5 mg/dL [facility] DEPARTMENT OF PATHOLOGY AND GENOMIC MEDICINE Specimen Plasma specimen Performing Organization Address [facility] Phone Number [facility] DEPARTMENT OF [address] [place] [address] PATHOLOGY AND GENOMIC MEDICINE * Ionized calcium (09/18/2017) Only the most recent of 3 results within the time period is included. pH 7.43 [facility] DEPARTMENT OF PATHOLOGY AND GENOMIC MEDICINE Ionized calcium 1.21 1.11 - 1.32 mmol/L [facility] DEPARTMENT OF PATHOLOGY AND GENOMIC MEDICINE Specimen Plasma specimen Performing Organization Address [facility] Phone Number [facility] DEPARTMENT OF [address] [place] [address] PATHOLOGY AND GENOMIC MEDICINE * XR Chest [...] stable. Right internal jugular sheath is stable. [id number] Procedure Note Interface, Radiology Results Incoming - [...] stable. Right internal jugular sheath is stable. [id number] Performing Organization Address [facility] [place] [address] * Partial thromboplastin time, activated (09/17/2017 2:15 AM) Only the most recent of 4 results within the time period is included. PTT 44.8 (H) 23.0 - 36.0 sec [facility] DEPARTMENT OF Comment: PATHOLOGY AND PTT therapeutic range for [facility] unfractionated heparin is 61.0-112.0 seconds which corresponds to Anti-Xa 0.3-0.7 U/ml. Specimen Blood Performing Organization Address [facility] [place] [address] PATHOLOGY AND [employer] MEDICINE * Prothrombin time with INR (09/17/2017 2:15 AM) Only the most recent of 12 results within the time period is included. Prothrombin time 18.0 (H) 12.0 - 15.0 sec [facility] DEPARTMENT OF PATHOLOGY AND GENOMIC MEDICINE INR 1.5 [facility] DEPARTMENT OF Comment: PATHOLOGY AND The International Normalized GENOMIC MEDICINE Ratio (INR) is a therapeutic monitoring tool for patients who are stable on oral anticoagulant therapy. An INR of 2.0-3.0 is suggested for deep vein thrombosis/pulmonary embolism. Specimen Blood Performing Organization Address [facility] Phone Number [facility] DEPARTMENT OF [address] [place] [address] PATHOLOGY AND [employer] MEDICINE * CBC hemogram (09/17/2017 2:15 AM) Only the most recent of 3 results within the time period is included. WBC 9.56 4.50 - 11.00 k/uL [facility] DEPARTMENT OF PATHOLOGY AND GENOMIC MEDICINE RBC 2.55 (L) 4.40 - 6.00 m/uL [facility] DEPARTMENT OF PATHOLOGY AND GENOMIC MEDICINE HGB 7.8 (L) 14.0 - 18.0 g/dL [facility] DEPARTMENT OF PATHOLOGY AND GENOMIC MEDICINE HCT 22.7 (L) 41.0 - 51.0 % [facility] DEPARTMENT OF PATHOLOGY AND GENOMIC MEDICINE MCV 89.0 82.0 - 100.0 fL [facility] DEPARTMENT OF PATHOLOGY AND GENOMIC MEDICINE MCH 30.6 27.0 - 34.0 pg [facility] DEPARTMENT OF PATHOLOGY AND GENOMIC MEDICINE MCHC 34.4 31.0 - 37.0 g/dL [facility] DEPARTMENT OF PATHOLOGY AND GENOMIC MEDICINE RDW - SD 46.6 37.0 - 55.0 fL [facility] DEPARTMENT OF PATHOLOGY AND GENOMIC MEDICINE MPV 11.3 8.8 - 13.2 fL [facility] DEPARTMENT OF PATHOLOGY AND GENOMIC MEDICINE Platelet count 122 (L) 150 - 400 k/uL [facility] DEPARTMENT OF PATHOLOGY AND GENOMIC MEDICINE Nucleated RBC 0.00 /100 WBC [facility] DEPARTMENT OF PATHOLOGY AND GENOMIC MEDICINE Specimen Blood Performing Organization Address City/[facility] [place] [address] PATHOLOGY AND [facility] * Fibrinogen (09/15/2017 10:15 PM) Only the most recent of 8 results within the time period is included. Fibrinogen 218 200 - 450 mg/dL [facility] DEPARTMENT OF PATHOLOGY AND GENOMIC MEDICINE Specimen Blood Performing Organization Address City/[facility] [place] [address] PATHOLOGY [facility] * Ionized calcium, arterial (09/15/2017 6:38 PM) Only the most recent of 12 results within the time period is included. Ionized calcium, arterial 1.24 1.11 - 1.32 mmol/L [facility] DEPARTMENT OF PATHOLOGY AND GENOMIC MEDICINE Specimen Blood Performing Organization Address City/[facility] [place] [address] PATHOLOGY [facility] * Arterial blood gas (09/15/2017 6:38 PM) Only the most recent of 7 results within the time period is included. pH, arterial 7.45 7.35 - 7.45 [facility] DEPARTMENT OF PATHOLOGY AND GENOMIC MEDICINE pCO2, arterial 35 35 - 45 mmHg [facility] DEPARTMENT OF PATHOLOGY AND GENOMIC MEDICINE pO2, arterial 173 (H) 80 - 90 mmHg [facility] DEPARTMENT OF PATHOLOGY AND GENOMIC MEDICINE Bicarbonate, arterial 24.2 21.0 - 28.0 mmol/L [facility] DEPARTMENT OF PATHOLOGY AND GENOMIC MEDICINE Base excess, arterial 1 -2 - 2 mEq/L [facility] DEPARTMENT OF PATHOLOGY AND GENOMIC MEDICINE O2 saturation, arterial 100 95 - 100 % [facility] DEPARTMENT OF PATHOLOGY AND GENOMIC MEDICINE Specimen Blood Performing Organization Address City/[facility] [place] [place] [address] PATHOLOGY AND GENOMIC MEDICINE * Hemoglobin & hematocrit (09/15/2017 6:05 PM) HGB 9.0 (L) 14.0 - 18.0 g/dL [facility] DEPARTMENT OF PATHOLOGY AND GENOMIC MEDICINE HCT 26.7 (L) 41.0 - 51.0 % [facility] DEPARTMENT OF PATHOLOGY AND GENOMIC MEDICINE Performing Organization Address City/[facility] Phone Number [facility] [place] [address] PATHOLOGY AND [facility] * Platelet count (09/15/2017 6:05 PM) Only the most recent of 6 results within the time period is included. Platelet count 133 (L) 150 - 400 k/uL [facility] DEPARTMENT OF PATHOLOGY AND GENOMIC MEDICINE Performing Organization Address City/[facility] Phone Number [facility] [place] [address] PATHOLOGY AND [facility] * Sodium level, syringe (09/15/2017 5:42 PM) Only the most recent of 11 results within the time period is included. Sodium, syringe 142 135 - 148 mEq/L [facility] DEPARTMENT OF PATHOLOGY AND GENOMIC MEDICINE Specimen Blood Performing Organization Address City/[facility] Phone Number [facility] [place] [address] PATHOLOGY AND [facility] * Potassium, syringe (09/15/2017 5:42 PM) Only the most recent of 11 results within the time period is included. Potassium, syringe 4.2 3.5 - 5.0 mEq/L [facility] DEPARTMENT OF PATHOLOGY AND GENOMIC MEDICINE Specimen Blood Performing Organization Address City/[facility] Phone Number [facility] [place] [address] PATHOLOGY AND [facility] * Hemoglobin, syringe (09/15/2017 5:42 PM) Only the most recent of 11 results within the time period is included. Hemoglobin, syringe 8.3 (L) 14.0 - 18.0 g/dL [facility] DEPARTMENT OF PATHOLOGY AND GENOMIC MEDICINE Specimen Blood Performing Organization Address City/[facility]/Zipcode [place] [address] PATHOLOGY AND GENOMIC MEDICINE * Glucose level, syringe (09/15/2017 5:42 PM) Only the most recent of 11 results within the time period is included. Glucose, syringe 153 (H) 65 - 99 mg/dL [facility] PATHOLOGY AND GENOMIC MEDICINE Specimen Blood Performing Organization Address [facility] [place] [address] PATHOLOGY AND [facility] * Hematocrit (09/15/2017 4:52 PM) Only the most recent of 4 results within the time period is included. HCT 21.2 (L) 41.0 - 51.0 % [facility] PATHOLOGY [facility] GENOMIC MEDICINE Performing Organization Address [facility] [place] [address] PATHOLOGY [facility] MEDICINE * Arterial blood gas, corrected (09/15/2017 1:16 PM) Only the most recent of 5 results within the time period is included. pH, arterial 7.36 7.35 - 7.45 [facility] OF PATHOLOGY AND GENOMIC MEDICINE pCO2, arterial 42 35 - 45 mmHg [facility] OF PATHOLOGY AND GENOMIC MEDICINE pO2, arterial 267 (H) 80 - 90 mmHg [facility] OF PATHOLOGY AND GENOMIC MEDICINE Temperature, Celsius 37.1 Degrees C [facility] OF PATHOLOGY AND GENOMIC MEDICINE O2 saturation, arterial 100 95 - 100 % [facility] OF PATHOLOGY AND GENOMIC MEDICINE pH, arterial corrected 7.36 [facility] OF PATHOLOGY AND GENOMIC MEDICINE pCO2, arterial corrected 42 mmHg [facility] OF PATHOLOGY AND GENOMIC MEDICINE pO2, arterial corrected 267 mmHg [facility] OF PATHOLOGY AND GENOMIC MEDICINE Base excess, arterial -2 -2 - 2 mEq/L [facility] OF PATHOLOGY AND GENOMIC MEDICINE Specimen Blood Performing Organization Address [facility] [place] [address] PATHOLOGY AND GENOMIC MEDICINE * PA catheter (09/15/2017 8:39 AM) Narrative Performed At Cinda Mei MD 09/15/20178:40 AM PA catheter Performed by: CINDA MEI Authorized by: SUNITA CASSIDY Patient Location:OR Start Time:09/15/2017 7:50 AM End Time:09/15/2017 7:55 AM Staff: Anesthesiologist:SUNITA CASSIDY Resident/OPERATIONS TECHNICIAN/AA:CINDA MEI Performed by:Resident/OPERATIONS TECHNICIAN/AA and anesthesiologist Preprocedure: patient identified, IV checked, site and side verified, risks and benefits discussed, procedure verified, surgical consent complete, patient position confirmed, monitors and equipment checked and pre-op evaluation complete MSBT: antiseptic used, all elements of maximal sterile barrier technique followed, hand hygiene performed, cap/gown used by other personnel and solutions labeled TIme Out Performed:09/15/2017 7:30 AM Procedure details: PA Catheter Type:GUIDE VISITOR PA Catheter Size:9 PA Catheter Side:Right PA [...] End Time:09/15/2017 7:55 AM Staff: Anesthesiologist:SUNITA CASSIDY Resident/OPERATIONS TECHNICIAN/AA:CINDA MEI Performed by:Resident/MADALYN/AA Preprocedure:patient identified, IV checked, [...] 6:45 AM End Time:09/15/2017 6:55 AM Staff: Anesthesiologist:SUNITA CASSIDY Resident/OPERATIONS TECHNICIAN/AA:CINDA MEI Performed by:Resident/OPERATIONS TECHNICIAN/AA Pre-procedure: patient identified, IV checked, site and [...] needed (09/14/2017 10:12 AM) Narrative Performed At [facility] Echocardiography Report [address] [place] [address] Pat.Name:FINESSE SMITH [facility].ID:[id number] .Date: 09/14/2017 Refer.MD:MAURICIO DAI MD Exam Time: 9:37:00 AMStudy Type:Routine Echo Height:68inWeight:167lb BSA: 1.89 m2 DOBAge:1935,81Y Sex: MALEBP:116/56 HR:69 bpm Sonogrphr: Federica Brooks RDCS, RVT Pat. Stat.:Inpatient Room:[facility] Study Status:Final Echo Event ID:[id number] Order ID:[id number] Reason for Study:Pre-op History / Clinical:Coronary Artery [...] RAPof 5 mmHg. MEASUREMENTS: 2D Parasternal [place] Ds4.7 cmLVPWd1.2 cm LVOT 2 cmAo An2 cm LVIDd5.2 cmIndex2.8 cm/m Ao Rtd 3.5 cm Index1.9 cm/m LVIDs2.8 cm LV Ruof698 g(122-174) LV%fs 46.6 % LVM Oapwp930.9 g/m2 IVSd 1.2 cmRWT0.4 [place] Sng Plane [place] Area 22 cm2(8.8-23.4) LA Vol66.9 ml Index35.4 ml/m LA LngAx 6 cm RA Sng Plane RA Area 16.8 cm2(8.3-19.5) RA Vol36.1 ml Index19.1 ml/m RA LngAx 6.5 cm DOPPLER LVOT Stroke Vol LVOT 2 cmLVOT CO5.8 l/min LVOT TVI29.1 cmLVOT CI3 l/m/m2 LVOT Tm343 sptfHD99 bpm LVOT SV 91.4 ml Signed 09/14/2017 03:17 PM Agusto Laird M.D. Procedure Note Interface, Radiology Results In - 09/14/2017 3:17 PM CDT Echocardiography Report [id number] [address] Pat.Name: FINESSE SMITH Pat.ID: [id number] St.Date: 09/14/2017 Refer.MD: MAURICIO DAI MD Exam Time: 9:37:00 AM Study Type:Routine Echo Height: 68in Weight: 167lb BSA: 1.89 m2 Age: 6 1935,81Y Sex: MALE BP: 116/56 HR: 69 bpm Sonogrphr: Federica Brooks RDCS, RVT Pat. Stat.:Inpatient Room: [facility] Study Status:Final Echo Event ID:[id number] Order ID: [id number] Reason for Study:Pre-op History / Clinical:Coronary Artery [...] of 5 mmHg. MEASUREMENTS: 2D Parasternal [place] Ds 4.7 cm LVPWd 1.2 cm [...] Performing Organization Address City/State/Zipcode Phone Number [facility] [address] [place] [address] * Prepare platelet pheresis (09/14/2017 5:45 AM) Product name Apheresis PLT, Leukored IRR #2 [facility] OF PATHOLOGY AND GENOMIC MEDICINE Unit number [id number] [facility] PATHOLOGY AND GENOMIC MEDICINE Product code [id number] [facility] PATHOLOGY AND GENOMIC MEDICINE Dispense status Transfused [facility] PATHOLOGY AND GENOMIC MEDICINE Blood expiration date [facility] OF PATHOLOGY AND GENOMIC MEDICINE Blood type code 5100 [facility] OF PATHOLOGY AND GENOMIC MEDICINE Blood type O POSITIVE [facility] OF PATHOLOGY AND GENOMIC MEDICINE Product name Platelets, Aph#1 PAS Irrad LR [facility] OF PATHOLOGY AND GENOMIC MEDICINE Unit number [id number] [facility] PATHOLOGY AND GENOMIC MEDICINE Product code [id number] [facility] PATHOLOGY AND GENOMIC MEDICINE Dispense status Transfused [facility] PATHOLOGY AND GENOMIC MEDICINE Blood expiration date [facility] PATHOLOGY AND GENOMIC MEDICINE Blood type code 5100 [facility] PATHOLOGY AND GENOMIC MEDICINE Blood type O POSITIVE [facility] PATHOLOGY AND GENOMIC MEDICINE Product name Apheresis Platelet ACDA LRIRR [facility] #1 PATHOLOGY AND GENOMIC MEDICINE Unit number [id number] [facility] PATHOLOGY AND GENOMIC MEDICINE Product code [id number] [facility] PATHOLOGY AND GENOMIC MEDICINE Dispense status Transfused [facility] PATHOLOGY AND GENOMIC MEDICINE Blood expiration date [facility] PATHOLOGY AND GENOMIC MEDICINE Blood type code 5100 [facility] PATHOLOGY AND GENOMIC MEDICINE Blood type O POSITIVE [facility] PATHOLOGY AND GENOMIC MEDICINE Product name Apheresis Platelet ACDA LRIRR [facility] PATHOLOGY AND GENOMIC MEDICINE Unit number [id number] [facility] PATHOLOGY AND GENOMIC MEDICINE Product code J1115A00 [facility] PATHOLOGY AND GENOMIC MEDICINE Dispense status Transfused [facility] PATHOLOGY AND GENOMIC MEDICINE Blood expiration date [facility] PATHOLOGY AND GENOMIC MEDICINE Blood type code 5100 [facility] OF PATHOLOGY AND GENOMIC MEDICINE Blood type O POSITIVE [facility] OF PATHOLOGY AND GENOMIC MEDICINE Performing Organization Address City/State/Zipcode Phone Number [facility] OF [address] [place] [address] PATHOLOGY AND GENOMIC MEDICINE * Prepare fresh frozen plasma (09/14/2017 5:45 AM) Product name Thawed Plasma CPDA1 [facility] OF PATHOLOGY AND GENOMIC MEDICINE Unit number [id number] [facility] PATHOLOGY AND GENOMIC MEDICINE Product code I2357C16 [facility] PATHOLOGY AND GENOMIC MEDICINE Dispense status Transfused [facility] PATHOLOGY AND GENOMIC MEDICINE Blood expiration date [facility] PATHOLOGY AND GENOMIC MEDICINE Blood type code 5100 [facility] PATHOLOGY AND GENOMIC MEDICINE Blood type O POSITIVE [facility] PATHOLOGY AND GENOMIC MEDICINE Product name Thawed Plasma CPDA1 [facility] PATHOLOGY AND GENOMIC MEDICINE Unit number [id number] [facility] PATHOLOGY AND GENOMIC MEDICINE Product code [id number] [facility] OF PATHOLOGY AND GENOMIC MEDICINE Dispense status Transfused [facility] PATHOLOGY AND GENOMIC MEDICINE Blood expiration date [facility] PATHOLOGY AND GENOMIC MEDICINE Blood type code 9500 [facility] OF PATHOLOGY AND GENOMIC MEDICINE Blood type O NEGATIVE [facility] OF PATHOLOGY AND GENOMIC MEDICINE Product name Thawed Plasma [facility] PATHOLOGY AND GENOMIC MEDICINE Unit number [id number] [facility] PATHOLOGY AND GENOMIC MEDICINE Product code S0935F25 [facility] PATHOLOGY AND GENOMIC MEDICINE Dispense status Transfused [facility] PATHOLOGY AND GENOMIC MEDICINE Blood expiration date [facility] PATHOLOGY AND GENOMIC MEDICINE Blood type code 5100 [facility] PATHOLOGY AND GENOMIC MEDICINE Blood type O POSITIVE [facility] PATHOLOGY AND GENOMIC MEDICINE Product name Thawed Plasma [facility] PATHOLOGY AND GENOMIC MEDICINE Unit number [id number] [facility] PATHOLOGY AND GENOMIC MEDICINE Product code I1823M75 [facility] PATHOLOGY AND GENOMIC MEDICINE Dispense status Transfused [facility] PATHOLOGY AND GENOMIC MEDICINE Blood expiration date [facility] PATHOLOGY AND GENOMIC MEDICINE Blood type code 5100 [facility] OF PATHOLOGY AND GENOMIC MEDICINE Blood type O POSITIVE [facility] OF PATHOLOGY AND GENOMIC MEDICINE Performing Organization Address City/State/Zipcode Phone Number [address] [address] PATHOLOGY AND GENOMIC MEDICINE * Prepare RBC (09/14/2017 5:45 AM) Product name Red Blood Cells -1, Leukored [facility] OF PATHOLOGY AND GENOMIC MEDICINE Unit number [id number] [facility] PATHOLOGY AND GENOMIC MEDICINE Product code [id number] [facility] PATHOLOGY AND GENOMIC MEDICINE Dispense status Transfused [facility] PATHOLOGY AND GENOMIC MEDICINE Blood expiration date [facility] PATHOLOGY AND GENOMIC MEDICINE Blood type code 5100 [facility] OF PATHOLOGY AND GENOMIC MEDICINE Blood type O POSITIVE [facility] OF PATHOLOGY AND GENOMIC MEDICINE Product name Red Blood Cells -1, Leukored [facility] OF PATHOLOGY AND GENOMIC MEDICINE Unit number [id number] [facility] PATHOLOGY AND GENOMIC MEDICINE Product code B2306Q89 [facility] PATHOLOGY AND GENOMIC MEDICINE Dispense status Transfused [facility] PATHOLOGY AND GENOMIC MEDICINE Blood expiration date [facility] PATHOLOGY AND GENOMIC MEDICINE Blood type code 5100 [facility] OF PATHOLOGY AND GENOMIC MEDICINE Blood type O POSITIVE [facility] OF PATHOLOGY AND GENOMIC MEDICINE Product name Red Blood Cells -1, Leukored [facility] OF PATHOLOGY AND GENOMIC MEDICINE Unit number [id number] [facility] OF PATHOLOGY AND GENOMIC MEDICINE Product code [id number] [facility] PATHOLOGY AND GENOMIC MEDICINE Dispense status Transfused [facility] PATHOLOGY AND GENOMIC MEDICINE Blood expiration date [facility] PATHOLOGY AND GENOMIC MEDICINE Blood type code 5100 [facility] OF PATHOLOGY AND GENOMIC MEDICINE Blood type O POSITIVE [facility] OF PATHOLOGY AND GENOMIC MEDICINE Product name Red Blood Cells -1, Leukored [facility] OF PATHOLOGY AND GENOMIC MEDICINE Unit number [id number] [facility] OF PATHOLOGY AND GENOMIC MEDICINE Product code B0494G15 [facility] OF PATHOLOGY AND GENOMIC MEDICINE Dispense status Transfused [facility] PATHOLOGY AND GENOMIC MEDICINE Blood expiration date [facility] PATHOLOGY AND GENOMIC MEDICINE Blood type code 5100 [facility] OF PATHOLOGY AND GENOMIC MEDICINE Blood type O POSITIVE [facility] OF PATHOLOGY AND GENOMIC MEDICINE Product name Red Blood Cells -1, Leukored [facility] OF PATHOLOGY AND GENOMIC MEDICINE Unit number [id number] [facility] PATHOLOGY AND GENOMIC MEDICINE Product code C9084N91 [facility] OF PATHOLOGY AND GENOMIC MEDICINE Dispense status Transfused [facility] OF PATHOLOGY AND GENOMIC MEDICINE Blood expiration date [facility] OF PATHOLOGY AND GENOMIC MEDICINE Blood type code 5100 [facility] OF PATHOLOGY AND GENOMIC MEDICINE Blood type O POSITIVE [facility] OF PATHOLOGY AND GENOMIC MEDICINE Product name Red Blood Cells -1, Leukored [facility] OF PATHOLOGY AND GENOMIC MEDICINE Unit number [id number] [facility] OF PATHOLOGY AND GENOMIC MEDICINE Product code B0976U08 [facility] OF PATHOLOGY AND GENOMIC MEDICINE Dispense status Transfused [facility] OF PATHOLOGY AND GENOMIC MEDICINE Blood expiration date [facility] OF PATHOLOGY AND GENOMIC MEDICINE Blood type code 5100 [facility] OF PATHOLOGY AND GENOMIC MEDICINE Blood type O POSITIVE [facility] OF PATHOLOGY AND GENOMIC MEDICINE Product name Red Blood Cells -1, Leukored [facility] OF PATHOLOGY AND GENOMIC MEDICINE Unit number [id number] [facility] OF PATHOLOGY AND GENOMIC MEDICINE Product code T2554M73 [facility] OF PATHOLOGY AND GENOMIC MEDICINE Dispense status Transfused [facility] PATHOLOGY AND GENOMIC MEDICINE Blood expiration date [facility] OF PATHOLOGY AND GENOMIC MEDICINE Blood type code 5100 [facility] OF PATHOLOGY AND GENOMIC MEDICINE Blood type O POSITIVE [facility] OF PATHOLOGY AND GENOMIC MEDICINE Product name Red Blood Cells -1, Leukored [facility] OF PATHOLOGY AND GENOMIC MEDICINE Unit number [id number] [facility] OF PATHOLOGY AND GENOMIC MEDICINE Product code M7641N54 [facility] OF PATHOLOGY AND GENOMIC MEDICINE Dispense status Transfused [facility] OF PATHOLOGY AND GENOMIC MEDICINE Blood expiration date [facility] OF PATHOLOGY AND GENOMIC MEDICINE Blood type code 5100 [facility] OF PATHOLOGY AND GENOMIC MEDICINE Blood type O POSITIVE [facility] OF PATHOLOGY AND GENOMIC MEDICINE Performing Organization Address City/[facility] Phone Number [facility] [place] [address] PATHOLOGY AND GENOMIC MEDICINE * Type and screen (09/14/2017 5:45 AM) ABO grouping O [facility] OF PATHOLOGY AND GENOMIC MEDICINE Rh type POS [facility] OF PATHOLOGY AND GENOMIC MEDICINE Antibody screen (gel) NEG [facility] OF PATHOLOGY AND GENOMIC MEDICINE Performing Organization Address City/[facility] Phone Number [facility] [place] [place] [address] PATHOLOGY AND GENOMIC MEDICINE * Hemoglobin A1c (09/14/2017 5:30 AM) Hemoglobin A1C 5.8 (H) 4.0 - 5.6 % [facility] OF Comment: PATHOLOGY AND HbA1c cutoffs for diagnosing GENOMIC MEDICINE diabetes: 4.0% - 5.6%=normal 5.7% - 6.4%=increased risk for diabetes (prediabetes) >=6.5%=diabetes Goals for glycemic control (ADA 2016) < 7.0%Target for non adults with diabetes. More or less stringent targets may be appropriate for individual patients. <7.5% Target for Children and adolescents with type 1 diabetes. Specimen Blood Performing Organization Address City/[facility]/Zipcode Phone Number [facility] [place] [address] PATHOLOGY AND GENOMIC MEDICINE * Lipid panel (09/14/2017 5:30 AM) Cholesterol 110 <200 mg/dL [facility] OF PATHOLOGY AND GENOMIC MEDICINE Triglycerides 101 <150 mg/dL [facility] OF PATHOLOGY AND GENOMIC MEDICINE HDL cholesterol 48 >40 mg/dL [facility] OF PATHOLOGY AND GENOMIC MEDICINE LDL cholesterol 51Comment: Result obtained by <100 mg/dL [facility] OF direct LDL measurement PATHOLOGY AND GENOMIC MEDICINE Lipid panel SeeBelow [facility] DEPART[facility] OF interpretation Comment: PATHOLOGY AND Total [...] specimen Performing Organization Address City/State/Zipcode Phone Number [facility] DEPARTMENT OF [address] [place] [address] PATHOLOGY AND GENOMIC MEDICINE * Pv carotid duplex (09/14/2017 12:47 AM) Narrative Performed At [facility] Vascular Ultrasound Laboratory Carotid Artery Duplex Report [id number] [facility] [address], [place] [address] For software quality assurance specialist purposes, the categorization of the degree of the stenosis of this exam is based on criteria described in the IAC carotid stenosis grading white paper( www.intersocietal.org/Vascular) and Crystal Moncada., Rai Mcdowell., et al. Carotid artery stenosis: jones-scale and Doppler US diagnosis--Society of Radiologists in Ultrasound Consensus Conference. Radiology. 2003 Nov; 229(2):340-6. Pat.Name:FINESSE SMITH [facility].ID:[id number] .Date: 09/14/2017 Refer.MD:MAURICIO DAI MD Exam Time: 3:37:00 AMStudy Type:Carotid DOBAge:1935,81Y Sex: MALE Sonogrphr: Asha Givens RVTPat. Stat.:Inpatient Room:[address] TapeVol: , CPT - 4: [address] Echo Event ID:[id number] Order ID:[id number] Reason for Study:Pre-operatove cardiovascular exam for CABG. [...] EDV31.3 cm/s Left ICA Mid ICA Mid [id number] cm/Kyra Mid EDV 24.2 cm/s Left ICA Prox ICA Prox PSV 113 cm/Kyra Prox EDV32.2 cm/s Left Vertebral Vertebral PSV 42.6 cm/sVertebral EDV 8.93 cm/s Right ICA/CCA Ratio ICA/CCA PSV0.761 Left ICA/CCA Ratio ICA/CCA PSV 1.51 Signed 09/14/2017 11:43 AM Denny Cantor MD, RPVI Procedure Note Interface, Radiology Results In - 09/14/2017 11:44 AM CDT Vascular Ultrasound Laboratory Carotid Artery Duplex Report [id number] [address] For software quality assurance specialist purposes, the categorization of the degree of the stenosis of this exam is based on criteria described in the IAC carotid stenosis grading white paper( www.intersocietal.org/Vascular) and Crystal Moncada., Rai Mcdowell., et al. Carotid artery stenosis: jones-scale and Doppler US diagnosis--Society of Radiologists in Ultrasound Consensus Conference. Radiology. 2003 Feb; 229(2):340-6. Pat.Name: FINESSE SMITH Pat.ID: [id number] .Date: 09/14/2017 Refer.MD: MAURICIO DAI MD Exam Time: 3:37:00 AM Study Type:Carotid Age: 6 1935,81Y Sex: MALE Sonogrphr: Asha Givens RVT Pat. Stat.:Inpatient Room: [address] Vol: RF, CPT - 4: 67835 Echo Event ID:[id number] Order ID: [id number] Reason for Study:Pre-operatove cardiovascular exam for CABG. [...] Denny Cantor MD, RPVI Performing Organization Address City/[facility]/Zipcode Phone Number [facility] [address] [place] [address] * Urinalysis screen and microscopy, with reflex to culture (09/13/2017 2:56 PM) Specimen site Clean catch [facility] OF PATHOLOGY AND GENOMIC MEDICINE Color, UA Straw [facility]PART[facility] OF PATHOLOGY AND GENOMIC MEDICINE Appearance, UA Clear [facility] OF PATHOLOGY AND GENOMIC MEDICINE Specific gravity, UA 1.009 1.001 - 1.035 [facility] DEPARTMENT OF PATHOLOGY AND GENOMIC MEDICINE pH, UA 7.0 5.0 - 8.5 [facility] DE[facility]MENT OF PATHOLOGY AND GENOMIC MEDICINE Protein, UA Negative Negative [facility] DEPARTMENT OF PATHOLOGY AND GENOMIC MEDICINE Glucose, UA Negative Negative [facility]MENT OF PATHOLOGY AND GENOMIC MEDICINE Ketones, UA Negative Negative [facility] OF PATHOLOGY AND GENOMIC MEDICINE Bilirubin, UA Negative Negative [facility] DE[facility]MENT OF PATHOLOGY AND GENOMIC MEDICINE Blood, UA Negative Negative [facility]MENT OF PATHOLOGY AND GENOMIC MEDICINE Nitrite, UA Negative Negative [facility]MENT OF PATHOLOGY AND GENOMIC MEDICINE Urobilinogen, UA <2.0 <2.0 [facility] DE[facility]MENT OF PATHOLOGY AND GENOMIC MEDICINE Leukocyte esterase, UA Negative Negative [facility] DEPARTMENT OF PATHOLOGY AND GENOMIC MEDICINE WBC, UA <1 0 - 1 /HPF [facility] DEPARTMENT OF PATHOLOGY AND GENOMIC MEDICINE RBC, UA None seen 0 - 5 /HPF [facility] DE[facility]MENT OF PATHOLOGY AND GENOMIC MEDICINE Bacteria, UA None seen None seen [facility]MENT OF PATHOLOGY AND GENOMIC MEDICINE Yeast, UA None seen [facility]MENT OF PATHOLOGY AND GENOMIC MEDICINE Yeast with pseudohyphae, None seen [facility] OF UA PATHOLOGY AND GENOMIC MEDICINE Specimen Urine Performing Organization Address City/[facility] Phone Number [facility] [address] [address] PATHOLOGY AND GENOMIC MEDICINE * Urine culture (09/13/2017 2:56 PM) Urine culture SEE COMMENTComment: [facility] OF Bacteriuria screen negative. PATHOLOGY AND GENOMIC MEDICINE Performing Organization Address City/[facility]/Zipcode Phone Number [facility] [address] [address] PATHOLOGY AND GENOMIC MEDICINE * ECG Pre/Post Op (in AM) (09/13/2017 1:49 PM) Ventricular rate 71 [facility] Atrial rate 71 [facility] AR interval 230 [facility] QRSD interval 94 [...] complexes are now present- Performing Organization Address [facility] Phone Number [facility] [address] [place] [address] * Cv laborer/key man procedure (09/13/2017 9:42 AM) Narrative Performed At [...] respiration, Oxygen saturation and CO2 monitoring, beginning [id number] ( time)for a total period of 30 minutes. I was physically present for the critical portions of all procedures performed during this episode of care Performing Organization Address [facility] Phone Number [address] [id number] [place] [address] * Comprehensive metabolic panel (09/11/2017 9:22 AM) Only the most recent of 2 results within the time period is included. Glucose 115 (H) 65 - 99 mg/dL [facility] Comment: [place] Fasting reference interval For someone without known diabetes, a glucose value between 100 and 125 mg/dL is consistent with prediabetes and should be confirmed with a follow-up test. BUN, whole blood 17 7 - 25 mg/dL [facility] [place] Creatinine 1.29 (H) 0.70 - 1.11 mg/dL [facility] Comment: [place] For patients >49 years of age, the reference limit for Creatinine is approximately 13% higher for people identified as -[place]. EGFR Non-Afr. [place] 52 (L) > OR=60 mL/min/1.73m2 [facility] EGFR 60 > OR=60 mL/min/1.73m2 [facility] BUN/creatinine ratio 13 6 - 22 (calc) [facility] Sodium 140 135 - 146 mmol/L [facility] Potassium 4.4 3.5 - 5.3 mmol/L [facility] Chloride 104 98 - 110 mmol/L [facility] CO2 28 20 - 31 mmol/L [facility] Calcium 8.9 8.6 - 10.3 mg/dL [facility] Protein 6.4 6.1 - 8.1 g/dL [facility] Albumin, S 3.9 3.6 - 5.1 g/dL [facility] Globulin, total 2.5 1.9 - 3.7 g/dL (calc) [facility] Albumin/globulin ratio 1.6 1.0 - 2.5 (calc) [facility] Total bilirubin 1.0 0.2 - 1.2 mg/dL [facility] Alkaline phosphatase 74 40 - 115 U/L [facility] AST 13 10 - 35 U/L [facility] ALT 9 9 - 46 U/L [facility] Narrative Performed At FASTING:YES [facility] FASTING: YES Other Results Text Performing Organization Information: Site ID: [id number] Name: [facility] Address: [address] [place] [id number] Director: Mary Kellogg Performing Organization Address City/State/Zipcode Phone Number [facility] [address] [place] [address] * Echocardiogram complete w contrast and 3D if needed (08/07/2017 9:51 AM) Narrative Performed At [facility] Echocardiography Report Pat.Name:FINESSE SMITH PPat.ID:[id number] .Date: 08/07/2017 Refer.MD:RODOLFO GUTIERREZ MD Exam Time: 10:15:00 AM Study Type:Routine Echo Height:68inWeight:170lb BSA: 1.91 m2 DOBAge:1935,81Y Sex: MALEBP:133/60 HR:65 bpmSonogrphr: Ho Holcomb RDCS Pat. Stat.:OutpatientRoom:[facility] Study Status:Final Echo Event ID:[id number] Order ID:[id number] Reason for Study:Coronary Artery Disease History / [...] RAPof 5 mmHg. MEASUREMENTS: 2D Parasternal [place] LVOT 1.7 cmLA Ds4.7 cm LVIDd4.3 cmIndex2.3 cm/m Ao Rtd 3.2 cm Index1.7 cm/m LVIDs2.6 cm LV Jzgi395.9 g(122-174) LV%fs 39 % LVM Phqiu051.6 g/m2 IVSd 1.3 cmRWT0.6 LVPWd1 cm LA Sng Plane LA Area 24.7 cm2(8.8-23.4) LA Vol76.8 ml Index40.2 ml/m LA LngAx 6.5 cm LA Biplane LA 4Ch Area 19.4 cm2 LA Vol60.3 ml Index31.6 ml/m LA 2Ch Area 19.2 cm2 Signed 08/07/2017 04:37 PM Jean Grossman MD Procedure Note Interface, Radiology Results In - 08/07/2017 4:37 PM CDT [facility] Echocardiography Report Pat.Name: FINESSE SMITH Pat.ID: [id number] St.Date: 08/07/2017 Refer.MD: RODOLFO GUTIERREZ MD Exam Time: 10:15:00 AM Study Type:Routine Echo Height: 68in Weight: 170lb BSA: 1.91 m2 Age: 6 1935,81Y Sex: MALE BP: 133/60 HR: 65 bpm Sonogrphr: Ho Holcomb RDCS Pat. Stat.:Outpatient Room: [facility] Study Status:Final Echo Event ID:[id number] Order ID: [id number] Reason for Study:Coronary Artery Disease History / [...] of 5 mmHg. MEASUREMENTS: 2D Parasternal [place] LVOT 1.7 cm LA Ds 4.7 cm [...] Organization Address City/State/Zipcode Phone Number [id number] [place] [address] after 01/14/2017 Insurance Payer Benefit Subscriber ID Type Phone Address Plan / Group AETNA MEDICARE AETNA xxxxxxxx HMO MEDICARE HMO/PPO [facility]
--- NOTE | 2018-03-10 11:48 | Consultation ---
DATE OF CONSULTATION: January 23, 2018 HEMATOLOGY CONSULTATION HISTORY OF PRESENT ILLNESS: Mr. Smith is an 82-year-old white male who has been referred to me for evaluation of "coagulopathy." The patient has had hematochezia, for which he was admitted for further evaluation and treatment. HISTORY OF PAST ILLNESSES: History of CABG, history of diabetes mellitus, history of peripheral arterial disease, history of hypertension, history of hyperlipidemia, history of chronic renal failure, history of diverticulosis coli. The patient also has had transverse colon polyp snared on January 16, 2018. The patient also had rectal polyp x 3 snared on January 16, 2018. The patient also has history of internal hemorrhoids. SOCIAL HISTORY: Noncontributory. FAMILY HISTORY: Noncontributory. ALLERGIES: REPORTED NONE. MEDICATIONS: At this time 1. Potassium chloride. 2. Atorvastatin. 3. Ferrous sulfate. 4. Folic acid. 5. Protonix. 6. Metoprolol. 7. Hydralazine. 8. Amlodipine. 9. Coreg. 10. Ramipril. 11. The patient has been on Plavix. The patient claims that he had taken off Plavix 5 days prior to any colonoscopy. REVIEW OF SYSTEMS: HEENT: Normal. CARDIAC: History of CABG. History of hypertension. History of hyperlipidemia. History of peripheral arterial disease. RESPIRATORY: Normal. GI: Colon polyp. Rectal polyp. Internal hemorrhoids. Status post polypectomies. : Chronic renal failure. MUSCULOSKELETAL: Normal. SKIN AND BREASTS: Normal. NEUROENDOCRINE: Essentially normal. PHYSICAL EXAMINATION: GENERAL: A large-built male. No palpable adenopathy. Anemic. HEART: Tachycardic. LUNGS: Are clear. ABDOMEN: Obese. RECTAL: Exam deferred. CENTRAL NERVOUS SYSTEM: Essentially normal. EXTREMITIES: Essentially normal. LABORATORY DATA: At this time shows a hemoglobin of 8.1, hematocrit around 24.9, white count 7100, platelets 136,000. INR 1.05. Bilirubin 1.4, SGOT 13, SGPT 10, alkaline phosphatase 56. Glucose 112. BUN 14, creatinine 1.37. Sodium 138, potassium 4.0, chloride is 103, CO2 26. IMPRESSION: 1. Hematochezia. 2. Anemia of blood loss. 3. Coronary artery bypass graft. 4. Diabetes mellitus. 5. Peripheral artery disease. 6. Hypertension. 7. Hyperlipidemia. 8. Chronic renal failure. 9. Hypokalemia. 10. Diverticulosis coli. 11. Transverse colon polyp snared on January 16, 2018. 12. Rectal polyp times 3 snared on January 17, 2008. 13. Internal hemorrhoids. PLAN, COMMENTS AND SUGGESTIONS: Suggest platelets as Plavix has caused the platelet dysfunction. Thank you very much for allowing me to participate in management of this patient. I will be more than happy to follow this patient as outpatient as a black topper if the attending would call and make an appointment with me. Job#: [id number] EV cc:MD HERBERT ARMENTA MD JORGE RODRIGUEZ, MD
== END 2018-01-26 12:02 | disposition home or self-care (01) | DRG 378 ==
LOC: ER 07:12 → ERHOLD 09:13 → ICU 11:58 → MED/SURG2 01-18 13:11
PROVIDERS: ADMIT Internal Medicine; ATTEND Internal Medicine
PROC: 30243K1 Transfusion of Nonautologous Frozen Plasma into Central Vein, Percutaneous Approach (ICD-10-PCS; 2018-01-15)
PROC: 30243N1 Transfusion of Nonautologous Red Blood Cells into Central Vein, Percutaneous Approach (ICD-10-PCS; 2018-01-15)
PROC: 30243R1 Transfusion of Nonautologous Platelets into Central Vein, Percutaneous Approach (ICD-10-PCS; 2018-01-15)
PROC: 0DBP8ZX Excision of Rectum, Via Natural or Artificial Opening Endoscopic, Diagnostic (ICD-10-PCS; 2018-01-16)
PROC: 0D5L8ZZ Destruction of Transverse Colon, Via Natural or Artificial Opening Endoscopic (ICD-10-PCS; 2018-01-16)
PROC: 0DB78ZX Excision of Stomach, Pylorus, Via Natural or Artificial Opening Endoscopic, Diagnostic (ICD-10-PCS; 2018-01-23)
PROC: 0DB68ZX Excision of Stomach, Via Natural or Artificial Opening Endoscopic, Diagnostic (ICD-10-PCS; principal; 2018-01-23 14:28)
DX: K57.91 Diverticulosis of intestine, part unspecified, without perforation or abscess with bleeding (principal); D62 Acute posthemorrhagic anemia; N17.9 Acute kidney failure, unspecified; I25.10 Atherosclerotic heart disease of native coronary artery without angina pectoris; I10 Essential (primary) hypertension; I73.9 Peripheral vascular disease, unspecified; E78.5 Hyperlipidemia, unspecified; Z95.1 Presence of aortocoronary bypass graft; K21.9 Gastro-esophageal reflux disease without esophagitis; E87.6 Hypokalemia; E86.0 Dehydration; E86.1 Hypovolemia; K20.9 Esophagitis, unspecified; K44.9 Diaphragmatic hernia without obstruction or gangrene; K29.70 Gastritis, unspecified, without bleeding; E10.51 Type 1 diabetes mellitus with diabetic peripheral angiopathy without gangrene; K64.8 Other hemorrhoids
CPT/HCPCS: 36415; 36430; 43239; 44391; 45385; 51700; 71046; 74177; 78278; 80048; 80053; 81001; 82270; 82550; 82553; 82948; 83605; 84484; 85002; 85014; 85018; 85025; 85610; 85730; 86850; 86900; 86920; 87040; 87086; 87186; 88305; 88312; 93005; 99284; A9512; J0360; J1940; J3430; J7030; J7040; J7050; P9016; P9017; P9031; P9034; Q9967

== ENCOUNTER → 2018-04-06 | Outpatient (CLI) | payer MEDICARE ==
[~2018-04-06] MED LIST changes: +CHLORPHENIRAMINE4 MG PO; +DOCUSATE SODIU100 MG PO; +FERROUS SULFAT325 MG PO; +FOLIC ACID1 MG PO; +LYRICA50 MG PO; +METOPROLOL TART50 MG PO; +POTASSIUM 25 M25 MEQ PO; +RAMIPRIL2.5 MG PO
--- NOTE | 2018-04-06 14:03 | Diagnostic Imaging Report ---
Exam: Cervical spine AP lateral oblique History: Neck pain Comparison: None. Findings: No fracture or malalignment. Degenerative disc disease with narrowing most severe at C5-C6 and C6-C7. Advanced multilevel facet and uncovertebral hypertrophy. Multilevel bilateral foraminal stenosis. Carotid atherosclerotic calcifications. Impression: Multilevel cervical spondylosis most advanced C5-C6 and C6-C7 Signed by: Dr. Peter Millan M.D. on 04/06/2018 2:00 PM
== END ==
LOC: RAD 13:12
PROVIDERS: ATTEND Internal Medicine
DX: S13.4XXA Sprain of ligaments of cervical spine, initial encounter (principal); V89.2XXA Person injured in unspecified motor-vehicle accident, traffic, initial encounter
CPT/HCPCS: 72050

== ENCOUNTER 2021-08-20 10:34 | Observation (INO) | payer MEDICARE ==
[~2021-08-20] VITALS: Ht 167.6 cm; Wt 73.0 kg
[2021-08-20 11:10] LABS: BASOPHILS % 0.5 % (0.0-1.0); EOSINOPHILS # (AUTO) 0.1 (0.0-0.4); EOSINOPHILS % 1.6 % (0.0-6.0); HEMATOCRIT 35.9 % (38.2-49.6); HEMOGLOBIN 11.6 g/dL (14.0-18.0); LYMPHOCYTES # (AUTO) 0.8 (1.0-3.2); LYMPHOCYTES % 9.4 % (18.0-39.1); MEAN CORPUSCULAR HEMOGLOBIN 30.6 pg (28-32); MEAN CORPUSCULAR HGB CONC 32.3 g/dL (31-35); MEAN CORPUSCULAR VOLUME 94.7 fL (81-99); MONOCYTES # (AUTO) 0.7 (0.2-0.8); MONOCYTES % 7.4 % (4.4-11.3); NEUTROPHILS # (AUTO) 7.1 (2.1-6.9); NEUTROPHILS % 80.8 % (38.7-80.0); PLATELET COUNT 155 x10e3/uL (140-360); RED BLOOD COUNT 3.79 x10e6/uL (4.3-5.7); RED CELL DISTRIBUTION WIDTH 16.2 % (11.7-14.4)
[2021-08-20 11:20] LABS: INR 1.06; PROTHROMBIN TIME 14.8 seconds (11.9-14.5)
[2021-08-20 11:27] LABS: ALBUMIN 3.4 g/dL (3.5-5.0); ALBUMIN/GLOBULIN RATIO 1.2 (0.8-2.0); ANION GAP 13.7 mmol/L (8-16); CALCIUM 7.9 mg/dL (8.4-10.2); CREATININE, SERUM 1.36 mg/dL (0.72-1.25); POTASSIUM 3.7 mmol/L (3.5-5.1)
[2021-08-20] MEDS ORDERED: SODIUM CHLORIDE 0.9% 250ML 250 ML IV ONE (11:45)
[2021-08-20] MEDS ORDERED: SODIUM CHLORIDE 0.9% 100 ML ONE (12:27)
[2021-08-20] MEDS ORDERED: IOPAMIDOL 370 MG/ML 100 ML INFUS..BTL INJ ONE (12:27)
[2021-08-20] MEDS ORDERED: POVIDONE IODINE 0.05% 0.05 % ML PO ONE (12:31)
[2021-08-20] MEDS ORDERED: PROPOFOL IV EMULSION 10 MG/ML 20 ML VIAL ONE (12:31)
[2021-08-20 17:39] VITALS: BP 116/73
[2021-08-20 17:40] VITALS: BP 116/73
[2021-08-20 21:57] VITALS: BP 130/60
[2021-08-20] MEDS ORDERED: HYDRALAZINE HCL25 MG PO (22:15)
[2021-08-20] MEDS ORDERED: VIT D2 PO (22:15)
[2021-08-20] MEDS ORDERED: RAMIPRIL5 MG PO (22:15)
[2021-08-20] MEDS ORDERED: RINVOQ ER15 MG PO (22:15)
[2021-08-20] MEDS ORDERED: CLOPIDOGREL75 MG PO (22:15)
[2021-08-20] MEDS ORDERED: ASPIRIN81 MG PO (22:15)
[2021-08-20] MEDS ORDERED: BISACODYL 5 MG TAB EC PO ONE ×2 (23:15→23:45)
[2021-08-21] VITALS (9 sets, daily range): BP systolic 132–160; BP diastolic 54–71
[2021-08-21] MEDS ORDERED: BISACODYL 5 MG TAB EC PO ONE (00:15)
[2021-08-21 01:10] LABS: % IRON SATURATION 16 % (15-50); IRON 43 ug/dL (65-175); TOTAL IRON BINDING CAPACITY 272 ug/dL (261-478); TRANSFERRIN 194 mg/dL (174-364)
[2021-08-21] MEDS ORDERED: CITRATE OF MAGNESIA 300ML BOTTLE PO ONE ×2 (05:00→07:00)
[2021-08-21 09:19] LABS: BASOPHILS % 0.4 % (0.0-1.0); EOSINOPHILS # (AUTO) 0.1 (0.0-0.4); HEMATOCRIT 35.6 % (38.2-49.6); HEMOGLOBIN 11.2 g/dL (14.0-18.0); LYMPHOCYTES # (AUTO) 0.4 (1.0-3.2); LYMPHOCYTES % 4.9 % (18.0-39.1); MEAN CORPUSCULAR HEMOGLOBIN 30.6 pg (28-32); MEAN CORPUSCULAR HGB CONC 31.5 g/dL (31-35); MEAN CORPUSCULAR VOLUME 97.3 fL (81-99); MONOCYTES # (AUTO) 0.7 (0.2-0.8); NEUTROPHILS # (AUTO) 7.1 (2.1-6.9); NEUTROPHILS % 85.3 % (38.7-80.0); PLATELET COUNT 150 x10e3/uL (140-360); RED BLOOD COUNT 3.66 x10e6/uL (4.3-5.7); RED CELL DISTRIBUTION WIDTH 16.5 % (11.7-14.4)
[2021-08-21] MEDS ORDERED: BENZONATATE 100 MG CAP PO PRN (14:00)
[2021-08-21] MEDS ORDERED: POTASSIUM CHLORIDE 20 MEQ TAB CR PO PRN (14:00)
[2021-08-21] MEDS ORDERED: DIPHENHYDRAMINE HCL 25 MG CAP PO PRN (14:00)
[2021-08-21] MEDS ORDERED: DEXTROSE 50% SYRINGE 50 ML IV PRN (14:00)
[2021-08-21] MEDS ORDERED: MELATONIN 5 MG TABLET PO PRN (14:00)
[2021-08-21] MEDS ORDERED: ALBUTEROL/IPRATROPIUM 3 ML NEB NEB PRN (14:00)
[2021-08-21] MEDS ORDERED: DOCUSATE SODIUM 100 MG CAP PO PRN (14:00)
[2021-08-21] MEDS ORDERED: LIDOCAINE 4% PATCH TP PRN (14:00)
[2021-08-21] MEDS ORDERED: HYDRALAZINE HCL 20 MG/ML VIAL IV PRN (14:00)
[2021-08-21] MEDS ORDERED: ACETAMINOPHEN 325 MG TAB PO PRN (14:00)
[2021-08-21] MEDS ORDERED: SIMETHICONE 80 MG CHEW PO PRN (14:00)
[2021-08-21] MEDS ORDERED: ONDANSETRON HCL INJ 2MG/ML 2ML 2 MG/ML VIAL IV PRN (14:00)
[2021-08-21] MEDS ORDERED: SODIUM CHLORIDE 0.9% 1000ML 1,000 ML IV SCH (14:45)
[2021-08-21] MEDS ORDERED: HYOSCYAMINE SULFATE 0.5 MG/ML INJ ONE (17:44)
[2021-08-21] MEDS: HYDRALAZINE HCL 25 MG TAB PO SCH (19:06)
[2021-08-21] MEDS ORDERED: AMLODIPINE BESYLATE 10 MG TAB PO SCH (21:00)
[2021-08-21] MEDS ORDERED: ATORVASTATIN 10 MG TAB PO SCH (21:00)
[2021-08-21] MEDS: METOPROLOL TARTRATE 50 MG TAB PO SCH (22:07)
[2021-08-22] VITALS (8 sets, daily range): BP systolic 99–138; BP diastolic 40–65
[2021-08-22 04:58] LABS: BASOPHILS % 0.4 % (0.0-1.0); EOSINOPHILS # (AUTO) 0.2 (0.0-0.4); EOSINOPHILS % 2.1 % (0.0-6.0); HEMATOCRIT 28.8 % (38.2-49.6); HEMOGLOBIN 9.4 g/dL (14.0-18.0); LYMPHOCYTES # (AUTO) 0.3 (1.0-3.2); LYMPHOCYTES % 4.8 % (18.0-39.1); MEAN CORPUSCULAR HGB CONC 32.6 g/dL (31-35); MONOCYTES # (AUTO) 0.8 (0.2-0.8); MONOCYTES % 11.4 % (4.4-11.3); NEUTROPHILS # (AUTO) 5.8 (2.1-6.9); NEUTROPHILS % 80.9 % (38.7-80.0); PLATELET COUNT 115 x10e3/uL (140-360); RED BLOOD COUNT 3.03 x10e6/uL (4.3-5.7); RED CELL DISTRIBUTION WIDTH 16.4 % (11.7-14.4)
[2021-08-22 05:21] LABS: ANION GAP 11.6 mmol/L (8-16); CALCIUM 7.5 mg/dL (8.4-10.2); CREATININE, SERUM 1.21 mg/dL (0.72-1.25); MAGNESIUM 2.6 MG/DL (1.3-2.1); PHOSPHORUS 2.5 MG/DL (2.3-4.7); POTASSIUM 3.6 mmol/L (3.5-5.1)
[2021-08-22] MEDS ORDERED: PANTOPRAZOLE SOD 40 MG TABEC PO SCH (07:30)
[2021-08-22] MEDS: METOPROLOL TARTRATE 50 MG TAB PO SCH ×2 (08:01→14:00)
[2021-08-22] MEDS ORDERED: RAMIPRIL 5 MG CAP PO SCH (09:00)
[2021-08-22] MEDS ORDERED: FOLIC ACID 1 MG TAB PO SCH (09:00)
[2021-08-22] MEDS ORDERED: DOXAZOSIN MESYLATE 2 MG TAB PO SCH (09:00)
[2021-08-22] MEDS: HYDRALAZINE HCL 25 MG TAB PO SCH (09:25)
[2021-08-22] MEDS ORDERED: ONDANSETRON HCL 4 MG ORAL DISINTEGRATING TAB PO PRN (14:45)
== END 2021-08-22 18:03 | disposition home or self-care (01) ==
LOC: ER 10:38 → ERHOLD 13:40 → INTOOBSV 13:40 → MED/SURG2 18:03
PROVIDERS: ADMIT Internal Medicine; ATTEND Internal Medicine
DX: K57.31 Diverticulosis of large intestine without perforation or abscess with bleeding (principal); I25.10 Atherosclerotic heart disease of native coronary artery without angina pectoris; N40.0 Benign prostatic hyperplasia without lower urinary tract symptoms; I10 Essential (primary) hypertension; D12.3 Benign neoplasm of transverse colon; K64.8 Other hemorrhoids; I95.9 Hypotension, unspecified; D12.4 Benign neoplasm of descending colon; D12.5 Benign neoplasm of sigmoid colon; Z20.822 Contact with and (suspected) exposure to COVID-19
CPT/HCPCS: 36415 ×3; 45382; 45385; 74174; 80048; 80053; 82607; 82746; 82948; 83540; 83735; 84100; 84466; 85025 ×3; 85045; 85610; 86850; 86900; 88305; 94799; 97161; 99284; G0378 ×3; J0360; J1980; J2704; J7030; J7050 ×2; Q9967; S0164; U0002; 45378

== ENCOUNTER 2021-08-25 16:13 | Inpatient (IN) | payer MEDICARE ==
[~2021-08-25] VITALS: Ht 172.7 cm; Wt 80.7 kg
[~2021-08-25 16:13] MED LIST changes: +ASPIRIN81 MG PO; +HYDRALAZINE HCL25 MG PO; +RAMIPRIL5 MG PO; +RINVOQ ER15 MG PO; +VIT D2 PO
[2021-08-25 17:26] LABS: BASOPHILS % 0.4 % (0.0-1.0); EOSINOPHILS # (AUTO) 0.1 (0.0-0.4); EOSINOPHILS % 2.4 % (0.0-6.0); HEMATOCRIT 33.5 % (38.2-49.6); LYMPHOCYTES # (AUTO) 0.8 (1.0-3.2); LYMPHOCYTES % 14.2 % (18.0-39.1); MEAN CORPUSCULAR HEMOGLOBIN 31.3 pg (28-32); MEAN CORPUSCULAR HGB CONC 32.8 g/dL (31-35); MEAN CORPUSCULAR VOLUME 95.2 fL (81-99); MONOCYTES # (AUTO) 0.5 (0.2-0.8); MONOCYTES % 9.1 % (4.4-11.3); NEUTROPHILS # (AUTO) 3.9 (2.1-6.9); NEUTROPHILS % 73.3 % (38.7-80.0); PLATELET COUNT 179 x10e3/uL (140-360); RED BLOOD COUNT 3.52 x10e6/uL (4.3-5.7); RED CELL DISTRIBUTION WIDTH 15.6 % (11.7-14.4)
[2021-08-25 17:33] LABS: INR 0.98; PROTHROMBIN TIME 13.9 seconds (11.9-14.5)
[2021-08-25 17:34] LABS: PARTIAL THROMBOPLASTIN TIME 28.8 seconds (23.8-35.5)
[2021-08-25 17:43] LABS: ALBUMIN 3.6 g/dL (3.5-5.0); ANION GAP 14.2 mmol/L (8-16); CALCIUM 8.1 mg/dL (8.4-10.2); CREATININE, SERUM 1.14 mg/dL (0.72-1.25); POTASSIUM 3.2 mmol/L (3.5-5.1)
[2021-08-25] MEDS ORDERED: HYDRALAZINE HCL 20 MG/ML VIAL ONE (17:55)
[2021-08-25] MEDS ORDERED: IOPAMIDOL 370 MG/ML 100 ML INFUS..BTL INJ ONE (18:11)
[2021-08-25] MEDS ORDERED: HYDRALAZINE HCL 20 MG/ML VIAL IV STA (18:13)
[2021-08-25 19:35] LABS: CREATINE KINASE MB 1.8 ng/mL (0-5.0)
[2021-08-25] MEDS: SODIUM CHLORIDE 0.9% 1000ML 1,000 ML IV SCH (20:21)
[2021-08-25 21:40] VITALS: BP 167/74
[2021-08-25] MEDS ORDERED: OMEGA-31000 MG PO (22:10)
[2021-08-25] MEDS: METOPROLOL TARTRATE 25 MG TAB PO SCH (22:37)
[2021-08-25] MEDS ORDERED: ACETAMINOPHEN 325 MG TAB PO PRN (23:30)
[2021-08-25] MEDS ORDERED: SIMETHICONE 80 MG CHEW PO PRN (23:30)
[2021-08-25] MEDS ORDERED: LIDOCAINE 4% PATCH TP PRN (23:30)
[2021-08-25] MEDS ORDERED: ONDANSETRON HCL INJ 2MG/ML 2ML 2 MG/ML VIAL IV PRN (23:30)
[2021-08-25] MEDS ORDERED: DIPHENHYDRAMINE HCL 25 MG CAP PO PRN (23:30)
[2021-08-25] MEDS ORDERED: BENZONATATE 100 MG CAP PO PRN (23:30)
[2021-08-25] MEDS ORDERED: HYDRALAZINE HCL 20 MG/ML VIAL IV PRN (23:30)
[2021-08-25] MEDS ORDERED: POTASSIUM CHLORIDE 20 MEQ TAB CR PO PRN (23:30)
[2021-08-25] MEDS ORDERED: DEXTROSE 50% SYRINGE 50 ML IV PRN (23:30)
[2021-08-25] MEDS ORDERED: ALBUTEROL/IPRATROPIUM 3 ML NEB NEB PRN (23:30)
[2021-08-25] MEDS ORDERED: MELATONIN 5 MG TABLET PO PRN (23:30)
[2021-08-26] VITALS (10 sets, daily range): BP systolic 155–184; BP diastolic 66–87
[2021-08-26 00:48] LABS: BASOPHILS % 0.4 % (0.0-1.0); EOSINOPHILS # (AUTO) 0.1 (0.0-0.4); EOSINOPHILS % 1.9 % (0.0-6.0); HEMATOCRIT 28.8 % (38.2-49.6); HEMOGLOBIN 9.3 g/dL (14.0-18.0); LYMPHOCYTES % 18.1 % (18.0-39.1); MEAN CORPUSCULAR HEMOGLOBIN 30.8 pg (28-32); MEAN CORPUSCULAR HGB CONC 32.3 g/dL (31-35); MEAN CORPUSCULAR VOLUME 95.4 fL (81-99); MONOCYTES # (AUTO) 0.6 (0.2-0.8); MONOCYTES % 11.9 % (4.4-11.3); NEUTROPHILS # (AUTO) 3.6 (2.1-6.9); NEUTROPHILS % 67.1 % (38.7-80.0); PLATELET COUNT 156 x10e3/uL (140-360); RED BLOOD COUNT 3.02 x10e6/uL (4.3-5.7); RED CELL DISTRIBUTION WIDTH 15.5 % (11.7-14.4)
[2021-08-26 05:27] LABS: BASOPHILS % 0.5 % (0.0-1.0); EOSINOPHILS # (AUTO) 0.2 (0.0-0.4); EOSINOPHILS % 3.6 % (0.0-6.0); HEMATOCRIT 29.6 % (38.2-49.6); HEMOGLOBIN 9.8 g/dL (14.0-18.0); LYMPHOCYTES # (AUTO) 0.8 (1.0-3.2); LYMPHOCYTES % 13.4 % (18.0-39.1); MEAN CORPUSCULAR HEMOGLOBIN 30.8 pg (28-32); MEAN CORPUSCULAR HGB CONC 33.1 g/dL (31-35); MEAN CORPUSCULAR VOLUME 93.1 fL (81-99); MONOCYTES # (AUTO) 0.7 (0.2-0.8); NEUTROPHILS # (AUTO) 3.9 (2.1-6.9); NEUTROPHILS % 70.1 % (38.7-80.0); PLATELET COUNT 155 x10e3/uL (140-360); RED BLOOD COUNT 3.18 x10e6/uL (4.3-5.7); RED CELL DISTRIBUTION WIDTH 15.6 % (11.7-14.4)
[2021-08-26 05:56] LABS: ANION GAP 13.4 mmol/L (8-16); CALCIUM 7.7 mg/dL (8.4-10.2); CREATININE, SERUM 1.01 mg/dL (0.72-1.25); POTASSIUM 3.4 mmol/L (3.5-5.1)
[2021-08-26 06:57] LABS: CREATINE KINASE MB 1.4 ng/mL (0-5.0)
[2021-08-26 07:11] LABS: % IRON SATURATION 27 % (15-50); IRON 68 ug/dL (65-175); TOTAL IRON BINDING CAPACITY 252 ug/dL (261-478); TRANSFERRIN 180 mg/dL (174-364)
[2021-08-26 07:14] LABS: CHOL/HDL RATIO 2.4 (3.9-4.7); MAGNESIUM 1.9 MG/DL (1.3-2.1); PHOSPHORUS 2.3 MG/DL (2.3-4.7)
[2021-08-26 07:34] LABS: FERRITIN 334.29 ng/mL (21.81-274.66); THYROID STIMULATING HORMONE 4.708 uIU/mL (0.350-4.940)
[2021-08-26] MEDS: METOPROLOL TARTRATE 25 MG TAB PO SCH ×2 (08:23→15:53)
[2021-08-26] MEDS: FOLIC ACID 1 MG TAB PO SCH (08:23)
[2021-08-26] MEDS: SODIUM CHLORIDE 0.9% 1000ML 1,000 ML IV SCH (09:25)
[2021-08-26] MEDS: DOCUSATE SODIUM 100 MG CAP PO PRN (11:33)
[2021-08-26 14:02] LABS: CREATINE KINASE MB 1.9 ng/mL (0-5.0)
[2021-08-26] MEDS: NIFEDIPINE CR 30 MG TAB PO SCH (15:38)
[2021-08-26] MEDS: ATORVASTATIN 10 MG TAB PO SCH (21:15)
[2021-08-27] VITALS (7 sets, daily range): BP systolic 141–160; BP diastolic 67–89
[2021-08-27 05:34] LABS: BASOPHILS % 0.5 % (0.0-1.0); EOSINOPHILS # (AUTO) 0.4 (0.0-0.4); EOSINOPHILS % 6.2 % (0.0-6.0); HEMATOCRIT 28.8 % (38.2-49.6); HEMOGLOBIN 9.3 g/dL (14.0-18.0); LYMPHOCYTES # (AUTO) 0.6 (1.0-3.2); MEAN CORPUSCULAR HEMOGLOBIN 30.5 pg (28-32); MEAN CORPUSCULAR HGB CONC 32.3 g/dL (31-35); MEAN CORPUSCULAR VOLUME 94.4 fL (81-99); MONOCYTES # (AUTO) 0.6 (0.2-0.8); MONOCYTES % 9.8 % (4.4-11.3); NEUTROPHILS # (AUTO) 4.8 (2.1-6.9); NEUTROPHILS % 73.9 % (38.7-80.0); PLATELET COUNT 163 x10e3/uL (140-360); RED BLOOD COUNT 3.05 x10e6/uL (4.3-5.7)
[2021-08-27 05:57] LABS: ANION GAP 10.2 mmol/L (8-16); CALCIUM 7.6 mg/dL (8.4-10.2); CREATININE, SERUM 1.14 mg/dL (0.72-1.25); POTASSIUM 3.2 mmol/L (3.5-5.1)
[2021-08-27] MEDS: NIFEDIPINE CR 30 MG TAB PO SCH (08:56)
[2021-08-27] MEDS: FOLIC ACID 1 MG TAB PO SCH (08:56)
[2021-08-27] MEDS: METOPROLOL TARTRATE 25 MG TAB PO SCH ×2 (08:56→17:36)
[2021-08-27] MEDS: DOCUSATE SODIUM 100 MG CAP PO PRN (17:34)
[2021-08-27] MEDS: ATORVASTATIN 10 MG TAB PO SCH (20:33)
[2021-08-28] VITALS (7 sets, daily range): BP systolic 150–172; BP diastolic 69–74
[2021-08-28] MEDS: NIFEDIPINE CR 30 MG TAB PO SCH (08:07)
[2021-08-28] MEDS: FOLIC ACID 1 MG TAB PO SCH (08:08)
[2021-08-28] MEDS: METOPROLOL TARTRATE 25 MG TAB PO SCH (08:08)
[2021-08-28] MEDS ORDERED: HYDRALAZINE HCL 25 MG TAB PO SCH (13:45)
[2021-08-28] MEDS ORDERED: ONDANSETRON HCL 4 MG ORAL DISINTEGRATING TAB PO PRN (14:00)
[2021-08-29] MEDS ORDERED: PANTOPRAZOLE SOD 40 MG TABEC PO SCH (07:30)
== END 2021-08-28 15:48 | disposition home or self-care (01) | DRG 378 ==
LOC: ER 16:18 → ERHOLD 19:42 → MED/SURG 21:39
PROVIDERS: ADMIT Internal Medicine; ATTEND Internal Medicine
PROC: 0DBM8ZX Excision of Descending Colon, Via Natural or Artificial Opening Endoscopic, Diagnostic (ICD-10-PCS; principal; 2021-08-21)
PROC: 0DBL8ZX Excision of Transverse Colon, Via Natural or Artificial Opening Endoscopic, Diagnostic (ICD-10-PCS; 2021-08-21)
PROC: 0DBN8ZX Excision of Sigmoid Colon, Via Natural or Artificial Opening Endoscopic, Diagnostic (ICD-10-PCS; 2021-08-21)
PROC: 0W3P8ZZ Control Bleeding in Gastrointestinal Tract, Via Natural or Artificial Opening Endoscopic (ICD-10-PCS; 2021-08-21)
DX: K57.31 Diverticulosis of large intestine without perforation or abscess with bleeding (principal); I48.21 Permanent atrial fibrillation; N40.0 Benign prostatic hyperplasia without lower urinary tract symptoms; D12.3 Benign neoplasm of transverse colon; K64.8 Other hemorrhoids; I95.9 Hypotension, unspecified; D12.4 Benign neoplasm of descending colon; D12.5 Benign neoplasm of sigmoid colon; I50.9 Heart failure, unspecified; I11.0 Hypertensive heart disease with heart failure; D50.0 Iron deficiency anemia secondary to blood loss (chronic); Z86.010 Personal history of colon polyps; I25.10 Atherosclerotic heart disease of native coronary artery without angina pectoris; K21.9 Gastro-esophageal reflux disease without esophagitis; E78.5 Hyperlipidemia, unspecified; Z95.1 Presence of aortocoronary bypass graft; R07.89 Other chest pain; I71.4 Abdominal aortic aneurysm, without rupture; I70.1 Atherosclerosis of renal artery; Z79.82 Long term (current) use of aspirin; Z20.822 Contact with and (suspected) exposure to COVID-19
CPT/HCPCS: 36415; 45382; 45385; 74174; 80048; 80053; 80061; 82550; 82553; 82607; 82728; 82746; 82948; 83036; 83540; 83735; 84100; 84443; 84466; 84484; 85014; 85018; 85025; 85045; 85610; 85730; 86850; 86900; 88305; 93005; 93306; 94799; 99284; G0378; J0360; J1980; J7030; J7050; Q9967

== ENCOUNTER 2021-09-17 17:34 | Inpatient (IN) | payer MEDICARE ==
[~2021-09-17] VITALS: Ht 172.7 cm; Wt 80.7 kg
[~2021-09-17 17:34] MED LIST changes: +OMEGA-31000 MG PO
[2021-09-17] MEDS ORDERED: ASPIRIN 81 MG CHEW TAB PO STA (18:22)
[2021-09-17] MEDS ORDERED: HYDROCODONE/APAP 5MG-325MG TAB PO ONE (18:30)
[2021-09-17 18:44] LABS: BASOPHILS # (AUTO) 0.1 (0.0-0.1); BASOPHILS % 0.7 % (0.0-1.0); EOSINOPHILS # (AUTO) 0.1 (0.0-0.4); EOSINOPHILS % 1.6 % (0.0-6.0); HEMATOCRIT 35.2 % (38.2-49.6); HEMOGLOBIN 11.3 g/dL (14.0-18.0); LYMPHOCYTES # (AUTO) 0.5 (1.0-3.2); LYMPHOCYTES % 5.6 % (18.0-39.1); MEAN CORPUSCULAR HEMOGLOBIN 30.1 pg (28-32); MEAN CORPUSCULAR HGB CONC 32.1 g/dL (31-35); MEAN CORPUSCULAR VOLUME 93.9 fL (81-99); MONOCYTES # (AUTO) 0.9 (0.2-0.8); MONOCYTES % 10.9 % (4.4-11.3); NEUTROPHILS # (AUTO) 6.5 (2.1-6.9); NEUTROPHILS % 80.6 % (38.7-80.0); PLATELET COUNT 340 x10e3/uL (140-360); RED BLOOD COUNT 3.75 x10e6/uL (4.3-5.7); RED CELL DISTRIBUTION WIDTH 14.4 % (11.7-14.4)
[2021-09-17 18:52] LABS: INR 1.03; PROTHROMBIN TIME 14.4 seconds (11.9-14.5)
[2021-09-17 18:53] LABS: PARTIAL THROMBOPLASTIN TIME 35.5 seconds (23.8-35.5)
[2021-09-17 19:00] LABS: ALANINE AMINOTRANSFERASE 18 IU/L (0-55); ALBUMIN 3.4 g/dL (3.5-5.0); ALBUMIN/GLOBULIN RATIO 0.9 (0.8-2.0); ALKALINE PHOSPHATASE 63 IU/L (40-150); ANION GAP 13.4 mmol/L (8-16); BLOOD UREA NITROGEN 9 mg/dL (7-26); BUN/CREATININE RATIO 7 (6-25); CALCIUM 8.4 mg/dL (8.4-10.2); CARBON DIOXIDE 24 mmol/L (22-29); CHLORIDE 101 mmol/L (98-107); CREATINE KINASE 47 IU/L (30-200); CREATININE, SERUM 1.25 mg/dL (0.72-1.25); EST GLOMERULAR FILTRATION RATE 55 ML/MIN (60-); GLUCOSE 159 mg/dL (74-118); POTASSIUM 3.4 mmol/L (3.5-5.1); SODIUM 135 mmol/L (136-145)
[2021-09-17] MEDS ORDERED: HYDRALAZINE HCL 20 MG/ML VIAL IV STA ×2 (19:22→22:43)
[2021-09-17] MEDS ORDERED: HYDRALAZINE HCL 20 MG/ML VIAL ONE ×2 (19:36→22:57)
[2021-09-17 20:01] LABS: CLARITY,URINE SL CLOUDY (CLEAR); COLOR,URINE YELLOW (YELLOW); KETONES,URINE NEGATIVE (NEGATIVE); LEUKOCYTE ESTERASE ,URINE NEGATIVE (NEGATIVE); NITRITE,URINE NEGATIVE (NEGATIVE); PROTEIN,URINE DIPSTICK 1+ (NEGATIVE); URINE UROBILINOGEN 0.2 mg/dL (0.2 - 1)
[2021-09-17 20:10] LABS: AMORPHOUS SEDIMENT,URINE FEW (FEW); BACTERIA,URINE RARE /HPF; HYALINE CASTS 0-1 (0-1)
[2021-09-17] MEDS ORDERED: ONDANSETRON HCL INJ 2MG/ML 2ML 2 MG/ML VIAL IV PRN (20:45)
[2021-09-17] MEDS ORDERED: Morphine 2mg Syringe 2 MG/ML SYR IV PRN (20:45)
[2021-09-18] VITALS (9 sets, daily range): BP systolic 152–185; BP diastolic 69–108
[2021-09-18] MEDS ORDERED: SIMETHICONE 80 MG CHEW PO PRN (02:00)
[2021-09-18] MEDS ORDERED: POTASSIUM CHLORIDE 20 MEQ TAB CR PO PRN (02:00)
[2021-09-18] MEDS ORDERED: MELATONIN 5 MG TABLET PO PRN (02:00)
[2021-09-18] MEDS ORDERED: LIDOCAINE 4% PATCH TP PRN (02:00)
[2021-09-18] MEDS ORDERED: BENZONATATE 100 MG CAP PO PRN (02:00)
[2021-09-18] MEDS ORDERED: DIPHENHYDRAMINE HCL 25 MG CAP PO PRN (02:00)
[2021-09-18] MEDS ORDERED: ALBUTEROL/IPRATROPIUM 3 ML NEB NEB PRN (02:00)
[2021-09-18] MEDS ORDERED: ACETAMINOPHEN 325 MG TAB PO PRN (02:00)
[2021-09-18] MEDS ORDERED: ONDANSETRON HCL INJ 2MG/ML 2ML 2 MG/ML VIAL IV PRN ×2 (02:00)
[2021-09-18] MEDS ORDERED: DEXTROSE 50% SYRINGE 50 ML IV PRN (02:00)
[2021-09-18] MEDS ORDERED: DOCUSATE SODIUM 100 MG CAP PO PRN (02:00)
[2021-09-18] MEDS ORDERED: STOOL SOFT-STI1 EACH PO (02:44)
[2021-09-18] MEDS ORDERED: METOPROLOL TART25 MG PO (02:44)
[2021-09-18] MEDS ORDERED: NIFEDIPINE ER30 M1 PO (02:44)
[2021-09-18] MEDS ORDERED: HYDRALAZINE HCL50 MG PO (02:44)
[2021-09-18] MEDS ORDERED: FEROSUL325 MG PO (02:44)
[2021-09-18] MEDS: METOPROLOL TARTRATE 50 MG TAB PO SCH ×2 (02:56→14:34)
[2021-09-18] MEDS ORDERED: HYDRALAZINE HCL 20 MG/ML VIAL IV PRN (04:00)
[2021-09-18] MEDS: HYDRALAZINE HCL 20 MG/ML VIAL IV PRN ×2 (04:08→19:33)
[2021-09-18 06:50] LABS: BASOPHILS # (AUTO) 0.1 (0.0-0.1); BASOPHILS % 0.6 % (0.0-1.0); EOSINOPHILS # (AUTO) 0.3 (0.0-0.4); EOSINOPHILS % 2.7 % (0.0-6.0); HEMATOCRIT 34.8 % (38.2-49.6); HEMOGLOBIN 11.3 g/dL (14.0-18.0); LYMPHOCYTES # (AUTO) 0.5 (1.0-3.2); LYMPHOCYTES % 5.4 % (18.0-39.1); MEAN CORPUSCULAR HEMOGLOBIN 30.3 pg (28-32); MEAN CORPUSCULAR HGB CONC 32.5 g/dL (31-35); MEAN CORPUSCULAR VOLUME 93.3 fL (81-99); MONOCYTES % 10.2 % (4.4-11.3); NEUTROPHILS # (AUTO) 7.5 (2.1-6.9); NEUTROPHILS % 80.6 % (38.7-80.0); PLATELET COUNT 345 x10e3/uL (140-360); RED BLOOD COUNT 3.73 x10e6/uL (4.3-5.7); RED CELL DISTRIBUTION WIDTH 14.3 % (11.7-14.4)
[2021-09-18 07:48] LABS: ANION GAP 13.4 mmol/L (8-16); CALCIUM 8.1 mg/dL (8.4-10.2); POTASSIUM 3.4 mmol/L (3.5-5.1)
[2021-09-18] MEDS: FOLIC ACID 1 MG TAB PO SCH (08:50)
[2021-09-18] MEDS: ASPIRIN 81 MG CHEW TAB PO SCH (08:50)
[2021-09-18] MEDS: PANTOPRAZOLE SOD 40 MG TABEC PO SCH (08:50)
[2021-09-18 11:15] LABS: CHOL/HDL RATIO 2.6 (3.9-4.7); MAGNESIUM 1.9 MG/DL (1.3-2.1); PHOSPHORUS 2.7 MG/DL (2.3-4.7)
[2021-09-18 11:35] LABS: THYROID STIMULATING HORMONE 3.666 uIU/mL (0.350-4.940)
[2021-09-18 16:45] LABS: CREATINE KINASE MB 0.7 ng/mL (0-5.0)
[2021-09-18] MEDS: ATORVASTATIN 10 MG TAB PO SCH (21:01)
[2021-09-19] VITALS (8 sets, daily range): BP systolic 129–196; BP diastolic 59–91
[2021-09-19] MEDS: METOPROLOL TARTRATE 50 MG TAB PO SCH ×2 (02:37→12:44)
[2021-09-19] MEDS: ASPIRIN 81 MG CHEW TAB PO SCH (08:20)
[2021-09-19] MEDS: FOLIC ACID 1 MG TAB PO SCH (08:20)
[2021-09-19] MEDS: PANTOPRAZOLE SOD 40 MG TABEC PO SCH (08:20)
[2021-09-19] MEDS: HYDRALAZINE HCL 20 MG/ML VIAL IV PRN (08:21)
[2021-09-19] MEDS: NIFEDIPINE CR 30 MG TAB PO SCH (12:44)
[2021-09-19] MEDS: HYDRALAZINE HCL 25 MG TAB PO SCH ×2 (15:04→21:26)
[2021-09-19] MEDS: ATORVASTATIN 10 MG TAB PO SCH (21:26)
[2021-09-20 00:06] VITALS: BP 133/61
[2021-09-20] MEDS: METOPROLOL TARTRATE 50 MG TAB PO SCH ×2 (02:24→13:32)
[2021-09-20 05:34] VITALS: BP 134/64
[2021-09-20] MEDS: FOLIC ACID 1 MG TAB PO SCH (08:24)
[2021-09-20] MEDS: PANTOPRAZOLE SOD 40 MG TABEC PO SCH (08:24)
[2021-09-20] MEDS: ASPIRIN 81 MG CHEW TAB PO SCH (08:24)
[2021-09-20] MEDS: NIFEDIPINE CR 30 MG TAB PO SCH (08:25)
[2021-09-20] MEDS: HYDRALAZINE HCL 25 MG TAB PO SCH ×2 (08:25→16:43)
[2021-09-20 09:00] VITALS: BP 143/67
[2021-09-20 09:02] VITALS: BP 143/67
[2021-09-20 12:15] VITALS: BP 149/66
[2021-09-20] MEDS ORDERED: METOPROLOL TART25 MG PO (13:58)
[2021-09-20 16:09] VITALS: BP 136/67
[2021-09-20] MEDS ORDERED: ONDANSETRON HCL 4 MG ORAL DISINTEGRATING TAB PO PRN (16:30)
== END 2021-09-20 18:35 | disposition home or self-care (01) | DRG 305 ==
LOC: ER 18:26 → ERHOLD 20:47 → MED/SURG3 23:52 → OBSVTOIN 09-19 15:33
PROVIDERS: ADMIT Internal Medicine; ATTEND Internal Medicine
DX: I16.0 Hypertensive urgency (principal); I50.22 Chronic systolic (congestive) heart failure; E78.5 Hyperlipidemia, unspecified; R07.89 Other chest pain; I25.10 Atherosclerotic heart disease of native coronary artery without angina pectoris; K21.9 Gastro-esophageal reflux disease without esophagitis; Z91.14 Patient's other noncompliance with medication regimen; I70.1 Atherosclerosis of renal artery; I11.0 Hypertensive heart disease with heart failure; I48.91 Unspecified atrial fibrillation; Z95.1 Presence of aortocoronary bypass graft; L40.9 Psoriasis, unspecified; Z86.010 Personal history of colon polyps; Z20.822 Contact with and (suspected) exposure to COVID-19
CPT/HCPCS: 36415; 71045; 80048; 80053; 80061; 81001; 82550; 82553; 83036; 83735; 83880; 84100; 84443; 84484; 85025; 85610; 85730; 93005; 99284; G0378; J0360; U0002

== ENCOUNTER 2021-09-26 18:15 | Observation (INO) | payer MEDICARE ==
[~2021-09-26] VITALS: Ht 172.7 cm; Wt 80.7 kg
[~2021-09-26 18:15] MED LIST changes: +FEROSUL325 MG PO; +HYDRALAZINE HCL50 MG PO; +METOPROLOL TART25 MG PO; +NIFEDIPINE ER30 M1 PO; +STOOL SOFT-STI1 EACH PO
[2021-09-26] MEDS ORDERED: ASPIRIN 325 MG TAB PO ONE (18:45)
[2021-09-26] MEDS ORDERED: SODIUM CHLORIDE FLUSH 10 ML SYR IV PRN (18:45)
[2021-09-26 18:52] LABS: BASOPHILS # (AUTO) 0.1 (0.0-0.1); BASOPHILS % 0.7 % (0.0-1.0); EOSINOPHILS # (AUTO) 0.2 (0.0-0.4); EOSINOPHILS % 2.2 % (0.0-6.0); HEMATOCRIT 36.1 % (38.2-49.6); HEMOGLOBIN 11.6 g/dL (14.0-18.0); LYMPHOCYTES # (AUTO) 0.6 (1.0-3.2); LYMPHOCYTES % 6.4 % (18.0-39.1); MEAN CORPUSCULAR HEMOGLOBIN 30.1 pg (28-32); MEAN CORPUSCULAR HGB CONC 32.1 g/dL (31-35); MEAN CORPUSCULAR VOLUME 93.5 fL (81-99); MONOCYTES # (AUTO) 0.7 (0.2-0.8); MONOCYTES % 8.4 % (4.4-11.3); NEUTROPHILS % 81.9 % (38.7-80.0); PLATELET COUNT 333 x10e3/uL (140-360); RED BLOOD COUNT 3.86 x10e6/uL (4.3-5.7); RED CELL DISTRIBUTION WIDTH 14.8 % (11.7-14.4)
[2021-09-26 19:03] LABS: INR 0.98; PROTHROMBIN TIME 13.9 seconds (11.9-14.5)
[2021-09-26 19:04] LABS: PARTIAL THROMBOPLASTIN TIME 31.9 seconds (23.8-35.5)
[2021-09-26 19:10] LABS: ALBUMIN 3.6 g/dL (3.5-5.0); ALBUMIN/GLOBULIN RATIO 0.9 (0.8-2.0); ANION GAP 15.2 mmol/L (8-16); CALCIUM 8.3 mg/dL (8.4-10.2); CREATININE, SERUM 1.16 mg/dL (0.72-1.25); POTASSIUM 4.2 mmol/L (3.5-5.1)
[2021-09-26 19:18] LABS: CLARITY,URINE CLEAR (CLEAR); COLOR,URINE YELLOW (YELLOW); KETONES,URINE NEGATIVE (NEGATIVE); LEUKOCYTE ESTERASE ,URINE NEGATIVE (NEGATIVE); NITRITE,URINE NEGATIVE (NEGATIVE); PROTEIN,URINE DIPSTICK 2+ (NEGATIVE); URINE UROBILINOGEN 0.2 mg/dL (0.2 - 1)
[2021-09-26 19:19] LABS: AMPHETAMINES SCREEN,URINE NEGATIVE (NEGATIVE); BENZODIAZEPINES SCREEN,URINE NEGATIVE (NEGATIVE); PHENCYCLIDINE SCREEN,URINE NEGATIVE (NEGATIVE)
[2021-09-26 19:25] LABS: BACTERIA,URINE MODERATE /HPF; EPITHELIAL CELLS,URINE FEW /LPF; RBC,URINE 0-5 /HPF (0-5)
[2021-09-26] MEDS ORDERED: ONDANSETRON HCL INJ 2MG/ML 2ML 2 MG/ML VIAL IV PRN ×2 (21:00→23:15)
[2021-09-26] MEDS ORDERED: ASPIRIN 81 MG CHEW TAB PO ONE (21:00)
[2021-09-26] MEDS ORDERED: HYDRALAZINE HCL 25 MG TAB PO ONE (21:30)
[2021-09-26 22:00] VITALS: BP 163/75
[2021-09-26 22:05] VITALS: BP 163/75
[2021-09-26] MEDS ORDERED: DEXTROSE 50% SYRINGE 50 ML IV PRN (23:15)
[2021-09-26] MEDS ORDERED: TRAMADOL HCL 50 MG TAB PO PRN (23:15)
[2021-09-26] MEDS ORDERED: POTASSIUM CHLORIDE 20 MEQ TAB CR PO PRN (23:15)
[2021-09-26] MEDS ORDERED: DIPHENHYDRAMINE HCL 25 MG CAP PO PRN (23:15)
[2021-09-26] MEDS ORDERED: ACETAMINOPHEN 325 MG TAB PO PRN (23:15)
[2021-09-26] MEDS ORDERED: SIMETHICONE 80 MG CHEW PO PRN (23:15)
[2021-09-26] MEDS ORDERED: ALBUTEROL/IPRATROPIUM 3 ML NEB NEB PRN (23:15)
[2021-09-26] MEDS ORDERED: METOPROLOL TARTRATE 25 MG TAB PO SCH (23:15)
[2021-09-26] MEDS ORDERED: MELATONIN 5 MG TABLET PO PRN (23:15)
[2021-09-26] MEDS ORDERED: LIDOCAINE 4% PATCH TP PRN (23:15)
[2021-09-26] MEDS ORDERED: HYDRALAZINE HCL 20 MG/ML VIAL IV PRN (23:15)
[2021-09-26] MEDS ORDERED: DOCUSATE SODIUM 100 MG CAP PO PRN (23:15)
[2021-09-26] MEDS ORDERED: BENZONATATE 100 MG CAP PO PRN (23:15)
[2021-09-27] VITALS (7 sets, daily range): BP systolic 134–172; BP diastolic 58–72
[2021-09-27] MEDS: PANTOPRAZOLE SOD 40 MG TABEC PO SCH ×2 (00:17→11:37)
[2021-09-27 04:51] LABS: BASOPHILS # (AUTO) 0.1 (0.0-0.1); BASOPHILS % 0.9 % (0.0-1.0); EOSINOPHILS # (AUTO) 0.5 (0.0-0.4); EOSINOPHILS % 5.9 % (0.0-6.0); HEMATOCRIT 32.1 % (38.2-49.6); HEMOGLOBIN 10.3 g/dL (14.0-18.0); LYMPHOCYTES # (AUTO) 0.6 (1.0-3.2); LYMPHOCYTES % 7.4 % (18.0-39.1); MEAN CORPUSCULAR HEMOGLOBIN 30.1 pg (28-32); MEAN CORPUSCULAR HGB CONC 32.1 g/dL (31-35); MEAN CORPUSCULAR VOLUME 93.9 fL (81-99); MONOCYTES # (AUTO) 0.8 (0.2-0.8); NEUTROPHILS # (AUTO) 5.8 (2.1-6.9); NEUTROPHILS % 75.4 % (38.7-80.0); PLATELET COUNT 289 x10e3/uL (140-360); RED BLOOD COUNT 3.42 x10e6/uL (4.3-5.7); RED CELL DISTRIBUTION WIDTH 14.6 % (11.7-14.4)
[2021-09-27 05:13] LABS: ANION GAP 12.5 mmol/L (8-16); CALCIUM 8.1 mg/dL (8.4-10.2); CREATININE, SERUM 1.16 mg/dL (0.72-1.25); POTASSIUM 3.5 mmol/L (3.5-5.1)
[2021-09-27] MEDS: HYDRALAZINE HCL 25 MG TAB PO SCH ×2 (05:58→16:03)
[2021-09-27] MEDS ORDERED: FOLIC ACID 1 MG TAB PO SCH (09:00)
[2021-09-27] MEDS ORDERED: ASPIRIN 81 MG CHEW TAB PO SCH (09:00)
[2021-09-27] MEDS ORDERED: NIFEDIPINE CR 30 MG TAB PO SCH (09:00)
[2021-09-27] MEDS ORDERED: NIFEDIPINE CR 30 MG TAB PO ONE (12:00)
[2021-09-27 13:54] LABS: CREATINE KINASE MB 0.9 ng/mL (0-5.0)
[2021-09-27] MEDS ORDERED: ONDANSETRON HCL 4 MG ORAL DISINTEGRATING TAB PO PRN (14:15)
[2021-09-27] MEDS ORDERED: METOPROLOL SUCC50 MG PO (16:29)
[2021-09-27] MEDS ORDERED: PROCARDIA XL30 MG PO (16:30)
[2021-09-27] MEDS ORDERED: ENOXAPARIN SOD INJ 40 MG/0.4 ML SYR SC SCH (17:00)
[2021-09-27] MEDS ORDERED: ATORVASTATIN 10 MG TAB PO SCH (21:00)
[2021-09-27] MEDS ORDERED: METOPROLOL TARTRATE 50 MG TAB PO SCH (23:15)
[2021-09-28] MEDS ORDERED: NIFEDIPINE CR 30 MG TAB PO SCH (09:00)
== END 2021-09-27 18:24 | disposition home or self-care (01) ==
LOC: ER 18:20 → ERHOLD 20:56 → MED/SURG 21:49
PROVIDERS: ADMIT Internal Medicine; ATTEND Internal Medicine
DX: R07.89 Other chest pain (principal); I48.0 Paroxysmal atrial fibrillation; I70.1 Atherosclerosis of renal artery; I16.0 Hypertensive urgency; I10 Essential (primary) hypertension; I25.10 Atherosclerotic heart disease of native coronary artery without angina pectoris; K21.9 Gastro-esophageal reflux disease without esophagitis; E78.5 Hyperlipidemia, unspecified; Z95.1 Presence of aortocoronary bypass graft; Z91.19 Patient's noncompliance with other medical treatment and regimen; Z20.822 Contact with and (suspected) exposure to COVID-19
CPT/HCPCS: 36415 ×2; 71045; 80048; 80053; 80307; 81001; 82550; 82553; 83880; 84484 ×2; 85025 ×2; 85610; 85730; 93005 ×2; 94799 ×2; 97161; 99284; G0378 ×2; J0696; J1650; S0164; U0002

== ENCOUNTER → 2021-11-06 | Day surgery (SDC) | payer MEDICARE ==
[2021-11-02 11:59] LABS: BASOPHILS # (AUTO) 0.1 (0.0-0.1); BASOPHILS % 0.8 % (0.0-1.0); EOSINOPHILS # (AUTO) 0.5 (0.0-0.4); EOSINOPHILS % 6.1 % (0.0-6.0); HEMATOCRIT 40.9 % (38.2-49.6); HEMOGLOBIN 12.7 g/dL (14.0-18.0); LYMPHOCYTES # (AUTO) 0.7 (1.0-3.2); LYMPHOCYTES % 9.2 % (18.0-39.1); MEAN CORPUSCULAR HEMOGLOBIN 29.5 pg (28-32); MEAN CORPUSCULAR HGB CONC 31.1 g/dL (31-35); MEAN CORPUSCULAR VOLUME 94.9 fL (81-99); MONOCYTES # (AUTO) 0.8 (0.2-0.8); MONOCYTES % 9.9 % (4.4-11.3); NEUTROPHILS # (AUTO) 5.7 (2.1-6.9); NEUTROPHILS % 73.6 % (38.7-80.0); PLATELET COUNT 191 x10e3/uL (140-360); RED BLOOD COUNT 4.31 x10e6/uL (4.3-5.7); RED CELL DISTRIBUTION WIDTH 14.6 % (11.7-14.4)
[2021-11-02 12:24] LABS: ALANINE AMINOTRANSFERASE 11 IU/L (0-55); ALBUMIN 3.4 g/dL (3.5-5.0); ALBUMIN/GLOBULIN RATIO 0.8 (0.8-2.0); ALKALINE PHOSPHATASE 68 IU/L (40-150); ANION GAP 15.9 mmol/L (8-16); BLOOD UREA NITROGEN 11 mg/dL (7-26); BUN/CREATININE RATIO 9 (6-25); CARBON DIOXIDE 25 mmol/L (22-29); CHLORIDE 103 mmol/L (98-107); CREATININE, SERUM 1.18 mg/dL (0.72-1.25); GLUCOSE 124 mg/dL (74-118); POTASSIUM 3.9 mmol/L (3.5-5.1); SODIUM 140 mmol/L (136-145)
[~2021-11-06] VITALS: Ht 172.7 cm; Wt 76.7 kg
[2021-11-06] VITALS (23 sets, daily range): BP systolic 127–165; BP diastolic 57–91
[~2021-11-06] MED LIST changes: +ALPRAZOLAM 0.5 MG TAB ONE; +DIPHENHYDRAMINE HCL 25 MG CAP ONE; +FENTANYL CITRATE/PF 100MCG/2 ML INJ ONE; +HEPARIN SOD/SOD CHLORIDE 0 ML ONE; +HEPARIN SOD/SOD CHLORIDE 2,000 ML ONE; +IOPAMIDOL 370 MG/ML 100 ML INFUS..BTL INJ ONE; +LIDOCAINE HCL 2% LOCAL 20 ML VIAL ONE; +METOPROLOL SUCC50 MG PO; +MIDAZOLAM HCL 2 MG/2 ML VIAL ONE; +PROCARDIA XL30 MG PO; +SODIUM CHLORIDE 0.9% 1000ML 1,000 ML ONE
== END | disposition home or self-care (01) ==
LOC: CATH LAB 08:44
PROVIDERS: ATTEND Internal Medicine Interventional Cardiology
DX: I25.709 Atherosclerosis of coronary artery bypass graft(s), unspecified, with unspecified angina pectoris (principal); I16.1 Hypertensive emergency; I11.0 Hypertensive heart disease with heart failure; I50.9 Heart failure, unspecified; I48.91 Unspecified atrial fibrillation; E78.2 Mixed hyperlipidemia; Z01.812 Encounter for preprocedural laboratory examination; Z20.822 Contact with and (suspected) exposure to COVID-19; Z79.82 Long term (current) use of aspirin; Z79.899 Other long term (current) drug therapy; Z95.1 Presence of aortocoronary bypass graft
CPT/HCPCS: 0223U; 36252; 36415; 76937; 80053; 83880; 85025; 93455; C1766; C1769; C1894; J2001; J2250; J3010; J7030; Q9967; 93459; 99152

== ENCOUNTER 2021-11-25 22:15 | Emergency (ER) | payer MEDICARE ==
[~2021-11-25] VITALS: Ht 172.7 cm; Wt 76.7 kg
[~2021-11-25 22:15] MED LIST changes: -ALPRAZOLAM 0.5 MG TAB ONE; -DIPHENHYDRAMINE HCL 25 MG CAP ONE; -FENTANYL CITRATE/PF 100MCG/2 ML INJ ONE; -HEPARIN SOD/SOD CHLORIDE 0 ML ONE; -HEPARIN SOD/SOD CHLORIDE 2,000 ML ONE; -IOPAMIDOL 370 MG/ML 100 ML INFUS..BTL INJ ONE; -LIDOCAINE HCL 2% LOCAL 20 ML VIAL ONE; -MIDAZOLAM HCL 2 MG/2 ML VIAL ONE; -SODIUM CHLORIDE 0.9% 1000ML 1,000 ML ONE
[2021-11-25] MEDS ORDERED: CLONIDINE HCL 0.1 MG TAB PO ONE (22:30)
[2021-11-25 22:46] LABS: BASOPHILS # (AUTO) 0.1 (0.0-0.1); BASOPHILS % 0.7 % (0.0-1.0); EOSINOPHILS # (AUTO) 0.6 (0.0-0.4); EOSINOPHILS % 6.3 % (0.0-6.0); HEMATOCRIT 40.2 % (38.2-49.6); HEMOGLOBIN 12.9 g/dL (14.0-18.0); LYMPHOCYTES # (AUTO) 0.9 (1.0-3.2); LYMPHOCYTES % 10.1 % (18.0-39.1); MEAN CORPUSCULAR HEMOGLOBIN 28.9 pg (28-32); MEAN CORPUSCULAR HGB CONC 32.1 g/dL (31-35); MEAN CORPUSCULAR VOLUME 90.1 fL (81-99); MONOCYTES # (AUTO) 0.8 (0.2-0.8); MONOCYTES % 8.5 % (4.4-11.3); NEUTROPHILS # (AUTO) 6.8 (2.1-6.9); NEUTROPHILS % 74.2 % (38.7-80.0); PLATELET COUNT 258 x10e3/uL (140-360); RED BLOOD COUNT 4.46 x10e6/uL (4.3-5.7); RED CELL DISTRIBUTION WIDTH 15.3 % (11.7-14.4)
[2021-11-25 23:04] LABS: ALBUMIN 3.7 g/dL (3.5-5.0); ALBUMIN/GLOBULIN RATIO 0.8 (0.8-2.0); ANION GAP 15.6 mmol/L (8-16); CALCIUM 8.7 mg/dL (8.4-10.2); CREATININE, SERUM 1.38 mg/dL (0.72-1.25); POTASSIUM 3.6 mmol/L (3.5-5.1)
[2021-11-25 23:10] LABS: CREATINE KINASE MB 1.5 ng/mL (0-5.0)
[2021-11-25] MEDS ORDERED: HYDRALAZINE HCL 20 MG/ML VIAL IV STA (23:33)
[2021-11-26 00:14] VITALS: BP 170/69
== END 2021-11-26 00:15 | disposition home or self-care (01) ==
LOC: ER 22:25
DX: I48.92 Unspecified atrial flutter (principal); I10 Essential (primary) hypertension; E78.5 Hyperlipidemia, unspecified; K21.9 Gastro-esophageal reflux disease without esophagitis; R94.31 Abnormal electrocardiogram [ECG] [EKG]
CPT/HCPCS: 36415; 71045; 80053; 82550; 82553; 84484; 85025; 93005; 99284; J0360

== ENCOUNTER 2022-01-12 18:37 | Emergency (ER) | payer MEDICARE ==
[~2022-01-12] VITALS: Ht 172.7 cm; Wt 76.7 kg
[2022-01-12] MEDS ORDERED: SILVER NITRATE SWABS ONE ×2 (20:17→20:20)
== END 2022-01-12 20:57 | disposition home or self-care (01) ==
LOC: FSED 18:55
DX: S31.30XA Unspecified open wound of scrotum and testes, initial encounter (principal); W45.8XXA Other foreign body or object entering through skin, initial encounter; Y93.E8 Activity, other personal hygiene; Z79.01 Long term (current) use of anticoagulants; I10 Essential (primary) hypertension; E78.5 Hyperlipidemia, unspecified; I48.91 Unspecified atrial fibrillation; K21.9 Gastro-esophageal reflux disease without esophagitis; L40.9 Psoriasis, unspecified; Z95.1 Presence of aortocoronary bypass graft
CPT/HCPCS: 99283

== ENCOUNTER 2022-03-08 20:56 | Inpatient (IN) | payer MEDICARE ==
[~2022-03-08] VITALS: Ht 172.7 cm; Wt 76.7 kg
[2022-03-08 22:27] LABS: CLARITY,URINE CLEAR (CLEAR); COLOR,URINE YELLOW (YELLOW)
[2022-03-08 22:28] LABS: KETONES,URINE NEGATIVE (NEGATIVE); LEUKOCYTE ESTERASE ,URINE NEGATIVE (NEGATIVE); NITRITE,URINE NEGATIVE (NEGATIVE); PROTEIN,URINE DIPSTICK 2+ (NEGATIVE); URINE UROBILINOGEN 0.2 mg/dL (0.2 - 1)
[2022-03-08 22:29] LABS: INR 1.99; PROTHROMBIN TIME 24.1 seconds (11.9-14.5)
[2022-03-08 22:30] LABS: PARTIAL THROMBOPLASTIN TIME 45.7 seconds (23.8-35.5)
[2022-03-08 22:31] LABS: BASOPHILS # (AUTO) 0.1 (0.0-0.1); BASOPHILS % 0.8 % (0.0-1.0); EOSINOPHILS # (AUTO) 0.2 (0.0-0.4); EOSINOPHILS % 3.2 % (0.0-6.0); HEMATOCRIT 42.5 % (38.2-49.6); HEMOGLOBIN 13.7 g/dL (14.0-18.0); LYMPHOCYTES # (AUTO) 1.2 (1.0-3.2); LYMPHOCYTES % 18.5 % (18.0-39.1); MEAN CORPUSCULAR HEMOGLOBIN 30.4 pg (28-32); MEAN CORPUSCULAR HGB CONC 32.2 g/dL (31-35); MEAN CORPUSCULAR VOLUME 94.4 fL (81-99); MONOCYTES # (AUTO) 0.6 (0.2-0.8); MONOCYTES % 9.4 % (4.4-11.3); NEUTROPHILS # (AUTO) 4.4 (2.1-6.9); NEUTROPHILS % 67.6 % (38.7-80.0); PLATELET COUNT 199 x10e3/uL (140-360)
[2022-03-08 22:38] LABS: ALBUMIN 4.4 g/dL (3.5-5.0); ALBUMIN/GLOBULIN RATIO 1.1 (0.8-2.0); ANION GAP 16.8 mmol/L (8-16); CALCIUM 9.4 mg/dL (8.4-10.2); CREATININE, SERUM 1.34 mg/dL (0.72-1.25); POTASSIUM 3.8 mmol/L (3.5-5.1)
[2022-03-08 22:47] LABS: BACTERIA,URINE FEW /HPF; EPITHELIAL CELLS,URINE FEW /LPF; RBC,URINE >50 /HPF (0-5)
[2022-03-09] VITALS (8 sets, daily range): BP systolic 154–186; BP diastolic 54–83
[2022-03-09] MEDS ORDERED: ONDANSETRON HCL INJ 2MG/ML 2ML 2 MG/ML VIAL IV PRN ×2 (00:45→01:15)
[2022-03-09] MEDS ORDERED: ALBUTEROL/IPRATROPIUM 3 ML NEB NEB PRN (01:15)
[2022-03-09] MEDS ORDERED: SIMETHICONE 80 MG CHEW PO PRN (01:15)
[2022-03-09] MEDS ORDERED: MELATONIN 5 MG TABLET PO PRN (01:15)
[2022-03-09] MEDS ORDERED: DOCUSATE SODIUM 100 MG CAP PO PRN (01:15)
[2022-03-09] MEDS ORDERED: DIPHENHYDRAMINE HCL 25 MG CAP PO PRN (01:15)
[2022-03-09] MEDS ORDERED: POTASSIUM CHLORIDE 20 MEQ TAB CR PO PRN (01:15)
[2022-03-09] MEDS ORDERED: LIDOCAINE 4% PATCH TP PRN (01:15)
[2022-03-09] MEDS ORDERED: BENZONATATE 100 MG CAP PO PRN (01:15)
[2022-03-09] MEDS: SODIUM CHLORIDE 0.9% 1000ML 1,000 ML IV SCH ×3 (01:54→18:06)
[2022-03-09] MEDS ORDERED: [UNRECOGNIZED DRUG - OTHER] PO (04:04)
[2022-03-09] MEDS ORDERED: XARELTO20 MG PO (04:04)
[2022-03-09] MEDS ORDERED: LORATADINE10 MG PO (04:04)
[2022-03-09] MEDS ORDERED: PANTOPRAZOLE SOD 40 MG TABEC PO SCH ×2 (07:30→13:45)
[2022-03-09] MEDS: NIFEDIPINE CR 30 MG TAB PO SCH (09:00)
[2022-03-09] MEDS ORDERED: METOPROLOL SUCCINATE 50 MG TAB XL PO SCH (09:00)
[2022-03-09] MEDS: HYDRALAZINE HCL 20 MG/ML VIAL IV PRN (16:02)
[2022-03-09] MEDS ORDERED: METOPROLOL TARTRATE 25 MG TAB PO SCH (17:00)
[2022-03-09] MEDS: METOPROLOL SUCCINATE 25 MG TAB XL PO SCH (17:00)
[2022-03-09] MEDS: ATORVASTATIN 10 MG TAB PO SCH (20:27)
[2022-03-10] VITALS (10 sets, daily range): BP systolic 130–188; BP diastolic 55–84
[2022-03-10] MEDS: HYDRALAZINE HCL 20 MG/ML VIAL IV PRN (05:22)
[2022-03-10 05:45] LABS: BASOPHILS % 0.6 % (0.0-1.0); EOSINOPHILS # (AUTO) 0.2 (0.0-0.4); EOSINOPHILS % 2.6 % (0.0-6.0); HEMATOCRIT 33.3 % (38.2-49.6); HEMOGLOBIN 11.3 g/dL (14.0-18.0); LYMPHOCYTES # (AUTO) 0.7 (1.0-3.2); LYMPHOCYTES % 10.1 % (18.0-39.1); MEAN CORPUSCULAR HEMOGLOBIN 30.5 pg (28-32); MEAN CORPUSCULAR HGB CONC 33.9 g/dL (31-35); MONOCYTES # (AUTO) 0.7 (0.2-0.8); MONOCYTES % 9.7 % (4.4-11.3); NEUTROPHILS # (AUTO) 5.3 (2.1-6.9); NEUTROPHILS % 76.6 % (38.7-80.0); PLATELET COUNT 157 x10e3/uL (140-360); RED CELL DISTRIBUTION WIDTH 16.9 % (11.7-14.4)
[2022-03-10 06:05] LABS: ANION GAP 16.4 mmol/L (8-16); CALCIUM 8.2 mg/dL (8.4-10.2); CREATININE, SERUM 1.07 mg/dL (0.72-1.25); POTASSIUM 3.4 mmol/L (3.5-5.1)
[2022-03-10] MEDS: FOLIC ACID 1 MG TAB PO SCH (08:39)
[2022-03-10] MEDS: METOPROLOL SUCCINATE 25 MG TAB XL PO SCH ×2 (08:40→18:07)
[2022-03-10] MEDS: NIFEDIPINE CR 30 MG TAB PO SCH (08:41)
[2022-03-10] MEDS: SODIUM CHLORIDE 0.9% 1000ML 1,000 ML IV SCH (16:51)
[2022-03-10] MEDS: ATORVASTATIN 10 MG TAB PO SCH (19:36)
[2022-03-10] MEDS ORDERED: PHYTONADIONE 10 MG/ML AMP IV ONE (23:00)
[2022-03-11] VITALS (8 sets, daily range): BP systolic 121–158; BP diastolic 52–76
[2022-03-11 05:12] LABS: BASOPHILS % 0.3 % (0.0-1.0); EOSINOPHILS # (AUTO) 0.2 (0.0-0.4); EOSINOPHILS % 3.5 % (0.0-6.0); HEMATOCRIT 30.8 % (38.2-49.6); HEMOGLOBIN 9.8 g/dL (14.0-18.0); LYMPHOCYTES # (AUTO) 0.5 (1.0-3.2); MEAN CORPUSCULAR HEMOGLOBIN 30.4 pg (28-32); MEAN CORPUSCULAR HGB CONC 31.8 g/dL (31-35); MEAN CORPUSCULAR VOLUME 95.7 fL (81-99); MONOCYTES # (AUTO) 0.8 (0.2-0.8); MONOCYTES % 12.9 % (4.4-11.3); NEUTROPHILS # (AUTO) 4.9 (2.1-6.9); NEUTROPHILS % 74.8 % (38.7-80.0); PLATELET COUNT 147 x10e3/uL (140-360); RED BLOOD COUNT 3.22 x10e6/uL (4.3-5.7); RED CELL DISTRIBUTION WIDTH 17.2 % (11.7-14.4)
[2022-03-11] MEDS: SODIUM CHLORIDE 0.9% 1000ML 1,000 ML IV SCH (05:43)
[2022-03-11] MEDS: METOPROLOL SUCCINATE 25 MG TAB XL PO SCH ×2 (09:00→17:46)
[2022-03-11] MEDS: FOLIC ACID 1 MG TAB PO SCH (09:00)
[2022-03-11] MEDS: NIFEDIPINE CR 30 MG TAB PO SCH (09:00)
[2022-03-11] MEDS ORDERED: SODIUM CHLORIDE 0.9% 250ML 250 ML ONE (12:41)
[2022-03-11] MEDS: ACETAMINOPHEN 325 MG TAB PO PRN (18:32)
[2022-03-11] MEDS ORDERED: SENNOSIDES 8.6 MG TAB PO PRN (19:45)
[2022-03-11] MEDS: ATORVASTATIN 10 MG TAB PO SCH (22:09)
[2022-03-12] VITALS (7 sets, daily range): BP systolic 113–147; BP diastolic 56–88
[2022-03-12 05:14] LABS: BASOPHILS % 0.4 % (0.0-1.0); EOSINOPHILS # (AUTO) 0.2 (0.0-0.4); EOSINOPHILS % 3.6 % (0.0-6.0); HEMATOCRIT 28.2 % (38.2-49.6); HEMOGLOBIN 9.1 g/dL (14.0-18.0); LYMPHOCYTES # (AUTO) 0.3 (1.0-3.2); LYMPHOCYTES % 6.6 % (18.0-39.1); MEAN CORPUSCULAR HEMOGLOBIN 30.4 pg (28-32); MEAN CORPUSCULAR HGB CONC 32.3 g/dL (31-35); MEAN CORPUSCULAR VOLUME 94.3 fL (81-99); MONOCYTES # (AUTO) 0.7 (0.2-0.8); MONOCYTES % 13.2 % (4.4-11.3); NEUTROPHILS # (AUTO) 3.8 (2.1-6.9); PLATELET COUNT 136 x10e3/uL (140-360); RED BLOOD COUNT 2.99 x10e6/uL (4.3-5.7); RED CELL DISTRIBUTION WIDTH 17.2 % (11.7-14.4)
[2022-03-12 05:27] LABS: INR 1.02; PARTIAL THROMBOPLASTIN TIME 34.2 seconds (23.8-35.5); PROTHROMBIN TIME 14.3 seconds (11.9-14.5)
[2022-03-12] MEDS: FOLIC ACID 1 MG TAB PO SCH (09:35)
[2022-03-12] MEDS: METOPROLOL SUCCINATE 25 MG TAB XL PO SCH ×2 (09:35→16:56)
[2022-03-12] MEDS: NIFEDIPINE CR 30 MG TAB PO SCH (09:35)
[2022-03-12 16:46] LABS: HEMATOCRIT 31.4 % (38.2-49.6); HEMOGLOBIN 9.6 g/dL (14.0-18.0)
[2022-03-12] MEDS: FUROSEMIDE INJ 10 MG/ML 4 ML VIAL IV SCH (17:52)
[2022-03-12] MEDS: ACETAMINOPHEN 325 MG TAB PO PRN (18:33)
[2022-03-12] MEDS: ATORVASTATIN 10 MG TAB PO SCH (20:07)
[2022-03-13] VITALS: BP 129/50
[2022-03-13 02:00] LABS: FERRITIN 269.6 ng/mL (21.81-274.66)
[2022-03-13 04:00] VITALS: BP 149/67
[2022-03-13 08:00] VITALS: BP 156/77
[2022-03-13 08:32] VITALS: BP 156/77
[2022-03-13] MEDS: FUROSEMIDE INJ 10 MG/ML 4 ML VIAL IV SCH (08:52)
[2022-03-13] MEDS: FOLIC ACID 1 MG TAB PO SCH (08:52)
[2022-03-13] MEDS: NIFEDIPINE CR 30 MG TAB PO SCH (08:53)
[2022-03-13] MEDS: METOPROLOL SUCCINATE 25 MG TAB XL PO SCH (08:55)
[2022-03-13] MEDS: ACETAMINOPHEN 325 MG TAB PO PRN (12:22)
[2022-03-13 12:26] VITALS: BP 173/64
[2022-03-13 12:56] VITALS: BP 150/61
[2022-03-13 14:03] LABS: HEMATOCRIT 30.1 % (38.2-49.6); HEMOGLOBIN 9.7 g/dL (14.0-18.0)
== END 2022-03-13 15:39 | disposition home or self-care (01) | DRG 378 ==
LOC: ER 21:45 → ERHOLD 03-09 00:37 → MED/SURG 03-09 03:21 → OBSVTOIN 03-12 09:02
PROVIDERS: ADMIT Internal Medicine; ATTEND Internal Medicine
PROC: 30233L1 Transfusion of Nonautologous Fresh Plasma into Peripheral Vein, Percutaneous Approach (ICD-10-PCS; principal; 2022-03-11)
PROC: 30233K1 Transfusion of Nonautologous Frozen Plasma into Peripheral Vein, Percutaneous Approach (ICD-10-PCS; 2022-03-11)
DX: K92.1 Melena (principal); D68.32 Hemorrhagic disorder due to extrinsic circulating anticoagulants; I48.20 Chronic atrial fibrillation, unspecified; I10 Essential (primary) hypertension; E78.5 Hyperlipidemia, unspecified; Z79.01 Long term (current) use of anticoagulants; Z20.822 Contact with and (suspected) exposure to COVID-19; K21.9 Gastro-esophageal reflux disease without esophagitis; Z95.1 Presence of aortocoronary bypass graft; Z82.49 Family history of ischemic heart disease and other diseases of the circulatory system; Z83.3 Family history of diabetes mellitus; I25.10 Atherosclerotic heart disease of native coronary artery without angina pectoris; I70.1 Atherosclerosis of renal artery; Z86.010 Personal history of colon polyps; T45.515A Adverse effect of anticoagulants, initial encounter
CPT/HCPCS: 36415; 71045; 80048; 80053; 81001; 82607; 82728; 82746; 83540; 83690; 83880; 84466; 84484; 85014; 85018; 85025; 85610; 85730; 86900; 93005; 94799; 96361; 99284; G0378; J0360; J1940; J3430; J7030; J7050; P9017

== ENCOUNTER 2022-07-27 01:19 | Emergency (ER) | payer MEDICARE ==
[~2022-07-27] VITALS: Ht 172.7 cm; Wt 76.7 kg
[~2022-07-27 01:19] MED LIST changes: +LORATADINE10 MG PO; +XARELTO20 MG PO; +[UNRECOGNIZED DRUG - OTHER] PO
[2022-07-27] MEDS ORDERED: HYDRALAZINE HCL 20 MG/ML VIAL ONE (02:04)
[2022-07-27 02:28] LABS: BASOPHILS # (AUTO) 0.1 (0.0-0.1); BASOPHILS % 0.4 % (0.0-1.0); EOSINOPHILS # (AUTO) 0.1 (0.0-0.4); EOSINOPHILS % 0.9 % (0.0-6.0); HEMATOCRIT 44.9 % (38.2-49.6); HEMOGLOBIN 14.8 g/dL (14.0-18.0); LYMPHOCYTES % 6.8 % (18.0-39.1); MEAN CORPUSCULAR HEMOGLOBIN 30.3 pg (28-32); MEAN CORPUSCULAR VOLUME 91.8 fL (81-99); MONOCYTES % 6.8 % (4.4-11.3); NEUTROPHILS % 84.7 % (38.7-80.0); PLATELET COUNT 186 x10e3/uL (140-360); RED BLOOD COUNT 4.89 x10e6/uL (4.3-5.7); RED CELL DISTRIBUTION WIDTH 15.5 % (11.7-14.4)
[2022-07-27 02:32] LABS: CLARITY,URINE CLOUDY (CLEAR); COLOR,URINE YELLOW (YELLOW)
[2022-07-27 02:33] LABS: KETONES,URINE NEGATIVE (NEGATIVE); LEUKOCYTE ESTERASE ,URINE NEGATIVE (NEGATIVE); NITRITE,URINE NEGATIVE (NEGATIVE); PROTEIN,URINE DIPSTICK >=300 (NEGATIVE); URINE UROBILINOGEN 0.2 mg/dL (0.2 - 1)
[2022-07-27 02:34] LABS: INR 1.03
[2022-07-27 02:35] LABS: PARTIAL THROMBOPLASTIN TIME 32.9 seconds (23.8-35.5)
[2022-07-27 02:45] LABS: ALBUMIN 4.1 g/dL (3.5-5.0); ALBUMIN/GLOBULIN RATIO 1.1 (0.8-2.0); ANION GAP 18.9 mmol/L (8-16); CREATININE, SERUM 1.4 mg/dL (0.72-1.25); POTASSIUM 3.9 mmol/L (3.5-5.1)
[2022-07-27 02:49] LABS: BACTERIA,URINE FEW /HPF; EPITHELIAL CELLS,URINE FEW /LPF; RBC,URINE 21-50 /HPF (0-5); TRANSITIONAL EPI CELLS,URINE FEW
[2022-07-27 02:52] LABS: CALCIUM 9.6 mg/dL (8.4-10.2)
[2022-07-27] MEDS ORDERED: HYDRALAZINE HCL 20 MG/ML VIAL IV STA ×2 (03:48→04:06)
[2022-07-27] MEDS ORDERED: SODIUM CHLORIDE FLUSH 10 ML SYR IV PRN (06:00)
== END 2022-07-27 04:42 | disposition home or self-care (01) ==
LOC: ER 01:25
DX: I10 Essential (primary) hypertension (principal); I48.92 Unspecified atrial flutter; E78.5 Hyperlipidemia, unspecified; K21.9 Gastro-esophageal reflux disease without esophagitis; N32.81 Overactive bladder; L40.9 Psoriasis, unspecified; Z95.1 Presence of aortocoronary bypass graft
CPT/HCPCS: 36415; 71045; 80053; 81001; 84484; 85025; 85610; 85730; 93005; 99284; J0360

== ENCOUNTER 2024-05-14 15:45 | Emergency (ER) | payer MEDICARE ==
[~2024-05-14] VITALS: Ht 172.7 cm; Wt 76.7 kg
[2024-05-14 15:51] VITALS: TEMP 97.7
[2024-05-14] MEDS ORDERED: SODIUM CHLORIDE FLUSH 10 ML SYR IV PRN (16:15)
[2024-05-14 16:51] LABS: BASOPHILS % 0.2 % (0.0-1.0); EOSINOPHILS % 0.1 % (0.0-6.0); HEMATOCRIT 33.9 % (38.2-49.6); HEMOGLOBIN 11.2 g/dL (14.0-18.0); LYMPHOCYTES # (AUTO) 0.4 (1.0-3.2); LYMPHOCYTES % 4.6 % (18.0-39.1); MEAN CORPUSCULAR HEMOGLOBIN 31.5 pg (28-32); MEAN CORPUSCULAR VOLUME 95.2 fL (81-99); MONOCYTES # (AUTO) 0.6 (0.2-0.8); MONOCYTES % 7.1 % (4.4-11.3); NEUTROPHILS # (AUTO) 7.9 (2.1-6.9); NEUTROPHILS % 87.4 % (38.7-80.0); PLATELET COUNT 263 x10e3/uL (140-360); RED BLOOD COUNT 3.56 x10e6/uL (4.3-5.7); RED CELL DISTRIBUTION WIDTH 14.3 % (11.7-14.4); WHITE BLOOD COUNT 9.07 x10e3/uL (4.8-10.8)
[2024-05-14 16:58] LABS: PARTIAL THROMBOPLASTIN TIME 28.9 seconds (23.8-35.5); PROTHROMBIN TIME 13.8 seconds (11.9-14.5)
[2024-05-14] MEDS: MECLIZINE HCL 12.5 MG TAB PO ONE (16:58)
[2024-05-14 17:07] LABS: ALBUMIN 4.1 g/dL (3.5-5.0); ALBUMIN/GLOBULIN RATIO 1.3 (0.8-2.0); ANION GAP 20.4 mmol/L (8-16); CREATININE, SERUM 1.8 mg/dL (0.72-1.25); TOTAL PROTEIN 7.2 g/dL (6.5-8.1)
[2024-05-14 17:10] LABS: POTASSIUM 3.4 mmol/L (3.5-5.1)
[2024-05-14 17:13] LABS: TROPONIN I 0.021 ng/mL (0-0.300)
[2024-05-14] MEDS: SODIUM CHLORIDE 0.9% 1000ML 1,000 ML IV ONE (17:53)
[2024-05-14 19:00] VITALS: PULSE 65; RESP 16
[2024-05-14 19:17] LABS: BILIRUBIN,URINE NEGATIVE (NEGATIVE); CLARITY,URINE CLEAR (CLEAR); COLOR,URINE YELLOW (YELLOW); GLUCOSE, URINE NEGATIVE (NEGATIVE); KETONES,URINE NEGATIVE (NEGATIVE); LEUKOCYTE ESTERASE ,URINE NEGATIVE (NEGATIVE); NITRITE,URINE NEGATIVE (NEGATIVE); PH,URINE 6 (5 - 7); PROTEIN,URINE DIPSTICK 1+ (NEGATIVE); URINE UROBILINOGEN 0.2 mg/dL (0.2 - 1)
[2024-05-14 19:30] LABS: BACTERIA,URINE MANY /HPF; EPITHELIAL CELLS,URINE FEW /LPF; MUCUS,URINE MODERATE (RARE); RBC,URINE 0-5 /HPF (0-5); WBC,URINE (MAN) 0-5 /HPF (0-5)
[2024-05-14] MEDS ORDERED: MECLIZINE HCL12.5 MG PO (19:33)
[2024-05-14] MEDS ORDERED: CEPHALEXIN500 MG PO (19:33)
[2024-05-14] MEDS ORDERED: KETOROLAC TROME10 MG PO (19:37)
[2024-05-14] MEDS ORDERED: ULTRAM 50MG50 MG PO (19:43)
[2024-05-14 20:31] VITALS: BP 129/84; PULSE 71; RESP 18; TEMP 98.6; O2SAT 99
== END 2024-05-14 20:00 | disposition home or self-care (01) ==
LOC: ER 15:54
DX: R42 Dizziness and giddiness (principal); I10 Essential (primary) hypertension; E78.5 Hyperlipidemia, unspecified; I48.91 Unspecified atrial fibrillation; K21.9 Gastro-esophageal reflux disease without esophagitis; L40.9 Psoriasis, unspecified; N32.81 Overactive bladder; Z95.1 Presence of aortocoronary bypass graft
CPT/HCPCS: 36415; 70450; 71045; 80053; 81001; 83880; 84484; 85025; 85610; 85730; 93005; 94760; 99284; J7030; J8597